=== PATIENT | female | born 1935 | race Caucasian/White ===

== ENCOUNTER 2022-03-21 08:43 | Outpatient (REF) | payer OTHER, SELFPAY ==
[2022-03-21 09:12] LABS: MANUAL DIFF FLAG NO
[2022-03-21 09:46] LABS: Basophils Percent Auto 0.4 % (0-2); Eosinophils Absolute Auto 0.2 X10*3/uL (0.0-0.4); Hematocrit 41.2 % (37.0-47.0); Hemoglobin 12.9 g/dl (12.0-16.0); Imm Gran Abs Auto 0.02 X10*3/uL (0.00-0.03); Imm Gran Pct Auto 0.3 % (0.0-0.4); Lymphocytes Absolute Auto 1.3 X10*3/uL (1.2-4.9); Lymphocytes Percent Auto 18.8 % (20-40); Mean Corpuscular HGB Conc 31.3 g/dl (31.0-35.0); Mean Corpuscular Hemoglobin 28.2 pg (27.0-33.0); Mean Corpuscular Volume 90.2 fL (80.0-98.0); Monocytes Absolute Auto 0.5 X10*3/uL (0.1-1.2); Monocytes Percent Auto 7.1 % (2-11); Neutrophils Absolute Auto 4.8 x10*3/uL (2.0-8.3); Neutrophils Percent Auto 70.4 % (45-73); Platelet Count 316 X10*3/uL (160-400); Red Blood Count 4.57 X10*6/uL (4.20-5.50); Red Cell Distribution Width 14.3 % (11.0-16.0); White Blood Count 6.8 X10*3/uL (4.8-10.8)
[2022-03-21 10:16] LABS: Alanine Aminotransferase 17 U/L (0-31); Albumin Level 4.1 g/dL (3.5-5.0); Alkaline Phosphatase 111 U/L (39-117); Anion Gap 13 (12-20); Aspartate Amino Transferase 28 U/L (5-31); Bilirubin Total 0.8 mg/dL (0.0-1.0); Blood Urea Nitrogen 17 mg/dL (9-16); Calcium 9.5 mg/dL (8.4-10.2); Carbon Dioxide 27 mmol/L (22-29); Chloride 106 mmol/L (96-108); Cholesterol 153 mg/dL; Estimated Glomerular Filt Rate 55; Glucose Fasting 103 mg/dL (60-99); HDL Cholesterol 40 mg/dL; LDL Cholesterol Calculated 91 mg/dl; Potassium 4.3 mmol/L (3.3-5.1); Sodium 142 mmol/L (135-145); Total Protein 6.6 g/dL (6.5-8.0); Triglycerides 112 mg/dL
[2022-03-21 10:38] LABS: TSH reflex Free T4 0.99 uIU/mL (0.32-4.0); Vitamin D 25-OH Total 5.5 ng/mL (>30)
[2022-03-21 10:58] LABS: Estimated Average Glucose 117 mg/dL; Hemoglobin A1c % 5.7 %
== END 2022-03-21 08:44 | disposition home or self-care (01) ==
LOC: HO.LAB 08:43
PROVIDERS: PCP Internal Medicine; Visit Provider Internal Medicine
DX: E78.00 Pure hypercholesterolemia, unspecified (principal); E55.9 Vitamin D deficiency, unspecified; R73.01 Impaired fasting glucose; I10 Essential (primary) hypertension
CPT/HCPCS: 36415; 80053; 80061; 82306; 83036; 84443; 85025

== ENCOUNTER 2023-11-27 14:16 | Outpatient (AMB) | payer OTHER, MEDICAID, SELFPAY ==
--- NOTE | 2023-11-27 14:17 | A.OFFPC_ITS ---
Vital Signs 11/27/23 14:18 Height 5 ft 1 in Weight 136 lb BMI 25.7 BP 128/86 Blood Pressure Location Lt brachial Position Sitting Pulse 60 Pulse Source Pulse Oximeter Pulse Oximetry (%) 97 Oxygen Delivery Method Room Air Intake Visit Reasons: hyperlipidemia vitamin d Gas Well Pumper Required: No Accompanied by: Self / Same As Patient Allergies nitrofurantoin [From MACROBID] Allergy (Unknown, Verified 11/27/23 15:15) RASH/FEVER penicillamine Allergy (Unknown, Verified 11/27/23 15:15) rash Penicillins [PENICILLINS] Allergy (Unknown, Verified 11/27/23 15:15) RASH Medication List - Last Reconciled 11/27/23 by Darci Mendenhall MD apixaban (Eliquis) 2.5 mg PO BID 90 days atorvastatin 20 mg PO DAILY cholecalciferol (vitamin D3) 50 mcg PO DAILY 90 days dicyclomine 20 mg (2 x 10 mg) PO QID fenofibrate nanocrystallized 145 mg PO DAILY 90 days hydrochlorothiazide 12.5 mg PO QAM 90 days lorazepam 1 mg PO DAILY PRN 30 days metoprolol succinate ER 50 mg PO DAILY 90 days Tobacco use date assessed: 11/27/23 Fall risk assessment: No Falls in past year Last assessed Fall Risk: 11/27/23 Dental Screening Dental Screen Date: 11/27/23 Did you have a dental visit in the last 12 months?: No Did you have a dental problem in the last 6 months where you did not have access to dental care?: No Was dental information given to patient?: No HPI hyperlipidemia vitamin d HPI Details Patient comes in for her follow up visit - she was last seen over a year ago in August 2022 States that she feels well She denies any headaches or dizziness Denies any chest pains, no SOB No nausea/vomiting, no abdominal pain No change in bowel habits noted - has not had any problems with her IBS lately Adds that she has not needed to take her Lorazepam in several months now and feels that her anxiety is well-controlled Needs several of her Rx refilled PFSH Medical History Vitamin D deficiency Impaired fasting glucose Overweight (BMI 25.0-29.9) Female bladder prolapse Hematuria Irritable bowel syndrome (IBS) Mixed hyperlipidemia Benign essential hypertension IBS (irritable bowel syndrome) Surgical History History of colonoscopy History of cholecystectomy History of bilateral cataract extraction Family History Father No problems noted. Mother No problems noted. Sister Cancer Social History Housing: Apartment Alcohol intake: never Patient Tobacco Use Status: Never used Tobacco Second Hand Smoke Exposure: No Current occupational status: retired Cognitive needs: No Hearing needs: No Vision needs: No Questionnaire PHQ-9 Over the last 2 weeks, how often have you been bothered by any of the following problems? 1. Little interest or pleasure in doing things: not at all 2. Feeling down, depressed, or hopeless: not at all 3. Trouble falling or staying asleep, or sleeping too much: not at all 4. Feeling tired or having little energy: not at all 5. Poor appetite or overeating: not at all 6. Feeling bad about yourself - or that you are a failure or have let yourself or your family down: not at all 7. Trouble concentrating on things, such as reading the newspaper or watching television: not at all 8. Moving or speaking so slowly that other people could have noticed. Or the opposite - being so fidgety or restless that you have been moving around a lot more than usual: not at all 9. Thoughts that you would be better off or of hurting yourself in some way: not at all Total score: 0 Depression Screening Interpretation: Negative Depression Screening Done: Yes 77452 - PHQ-9 Billing: Yes Source: Developed by Drs. Harinder Fernández, Erika Oden, Abdiel Jaramillo and colleagues, with an educational jaxson from [employer]. Thrive Questionnaire Date Thrive assessed: 11/27/23 I am a: Patient What is your living situation today?: I have a steady place to live Within the past 12 months, did the food you bought not last and you didn't have the money to get more?: Never true Within the past 12 months, did you worry whether your food would run out before you got money to buy more?: Never true Do you have trouble paying for medicines?: No Do you have trouble getting transportation to medical appointments?: No Do you have trouble paying your heating and electricity bill?: No Do you have trouble taking care of your child, family member or friend?: No Do you have trouble with day-to-day activities such as bathing, preparing meals, shopping, managing finances, etc.?: No Are you currently unemployed and looking for a job?: No Are you interested in more education?: No Please select the resources that you would like help with: None Currently or been in a relationship where the following occur: no concerns reported THRIVE Score: 0 AUDIT C Alcohol Use Questionnaire (AUDIT-C) 1. How often do you have a drink containing alcohol?: Never 3. How often do you have six or more drinks on one occasion?: Never Total Score: 0 Score Reviewed/Action Taken: Yes STEPHANIE-7 AMB Questionnaire STEPHANIE-7 Date STEPHANIE - 7 assessed: 11/27/23 Feeling nervous, anxious, or on edge: 1 = Several days Not being able to stop or control worryin = Several days Worrying too much about different things: 1 = Several days Trouble relaxin = Several days Being so restless that it is hard to sit still: 1 = Several days Becoming easily annoyed or irritable: 1 = Several days Feeling afraid as if something awful might happen: 1 = Several days Total STEPHANIE-7 score (0-4 normal; 5-9 mild; 10-14 moderate; 15-21 severe): 7 Source: Developed by Drs. Harinder Fernández, Erika Oden, Abdiel Jaramillo and colleagues, with an educational jaxson from [employer]. Review of Systems Const Denies chills, Denies fatigue, Denies fever(s) and Denies headache(s) ENT Denies dysphagia, Denies dizziness, Denies otalgia, Denies headache(s), Denies neck pain, Denies odynophagia and Denies sore throat Card Denies chest pain, Denies irregular heart rhythm, Denies palpitations and Denies dyspnea Resp Denies chest congestion, Denies cough and Denies dyspnea GI Denies abdominal pain, Denies constipation, Denies dysphagia, Denies heartburn, Denies diarrhea, Denies nausea, Denies odynophagia and Denies vomiting Denies difficulty voiding, Denies nocturia, Denies dysuria and Denies urinary urgency Musc Denies back pain and Denies neck pain Neuro Denies dizziness and Denies headache(s) Psych Denies anxiety Endo Denies fatigue and Denies palpitations Physical exam (Primary Care) Vital Signs: Last Vital Signs Pulse 60 11/27/23 14:18 BP 128/86 11/27/23 14:18 Pulse Ox 97 11/27/23 14:18 Oxygen Delivery Method Room Air 11/27/23 14:18 BMI result Body Mass Index 25.7 Tobacco/Smoking Status: Tobacco use Status Tobacco use date assessed 11/27/23 11/27/23 14:19 Patient Tobacco Use Status Never used Tobacco 11/27/23 14:19 PHQ-9: PHQ-9 Score PHQ-9: Total score 0 11/27/23 15:33 Depression Screening Interpretation: Negative Thrive Assessment: Date of Thrive Assessment Date Thrive assessed 11/27/23 11/27/23 14:19 Currently or been in a relationship where the following occur: no concerns reported Const General: no acute distress and alert HENMT Ears: TM's normal bilaterally and EAC's normal Throat: Yes posterior oropharynx normal and Yes tonsils normal (no TP congestion noted) Neck Neck: Yes no lymphadenopathy and Yes supple Resp Auscultation: clear to auscultation bilaterally, no rales and no wheezes Cardio Rate: regular rate Rhythm: regular rhythm Heart sounds: no murmurs GI Palpation (GI): Soft to palpation and nontender Auscultation: normal bowel sounds Skin Rashes: no rashes Extrem General: Yes no clubbing, cyanosis or edema Assessment and Plan Assessment & Plan (1) Benign essential hypertension: Code(s): I10 - Essential (primary) hypertension Plan: Reinforced low sodium diet - goal is systolic BP of at least 140 to 150 mm or less Continue Metoprolol ER 50 mg QD and HCTZ 12.5 mg QAM (2) Mixed hyperlipidemia: Code(s): E78.2 - Mixed hyperlipidemia Plan: Reinforced low cholesterol diet Continue Atorvastatin 20 mg QD and Fenofibrate 145 mg QD Patient again states that she lives alone and has no means of transportation except for her children but does not feel like bothering them and she often has to pay [id number] for transportation cost and would like to keep her labs down to a minimum as much as possible Will try rechecking her labs in 6 months but advised that if she has no means of transportation, then she should not force the issue (3) Paroxysmal atrial fibrillation: Code(s): I48.0 - Paroxysmal atrial fibrillation Plan: Patient currently remains in sinus rhythm Continue Apixaban 2.5 mg BID for thromboembolism prophylaxis Was referred to cardiology for further evaluation and management last year but she did not keep her appointment and prefers not to reschedule her appt - states that she feels well for her age and does not want any additional doctor's appointment for now (4) Irritable bowel syndrome (IBS): Code(s): K58.9 - Irritable bowel syndrome without diarrhea Qualifiers: Irritable bowel syndrome type: unspecified Qualified Code(s): K58.9 - Irritable bowel syndrome without diarrhea Plan: Controlled lately Continue Dicyclomine 10 mg 2 capsules 4 times a day as needed (5) Vitamin D deficiency: Code(s): E55.9 - Vitamin D deficiency, unspecified Plan: Continue Vitamin D3 2000 units QD (6) Impaired fasting glucose: Code(s): R73.01 - Impaired fasting glucose Plan: FBS was elevated on her labs done back in 2019; FBS was only slightly elevated on her recent labs and HgbA1c was normal at 5.7% Reinforced low calorie diet - admits that she drinks soda (Sprite) often and likes her sweets (candies) (7) Hematuria: Code(s): R31.9 - Hematuria, unspecified Qualifiers: Hematuria type: unspecified type Qualified Code(s): R31.9 - Hematuria, unspecified Plan: Urinalysis done back in June 2020 continues to show (+) significant RBCs and WBCs Was sent for a renal US for further evaluation and patient chose not to keep her appt. Advised to call if she sees any worsening/darkening of her urine color and appearance and if this progresses, will need to get this checked out further (8) Female bladder prolapse: Code(s): N81.10 - Cystocele, unspecified Plan: Was referred to urology previously but patient did not keep her appointment Advised to call for referral again if she changes her mind about seeing urology (9) Anxiety: Code(s): F41.9 - Anxiety disorder, unspecified Plan: Continue Lorazepam 1 mg 1/2 tablet every 6 hours as needed - takes this mostly at bedtime and only when needed (10) Overweight (BMI 25.0-29.9): Code(s): E66.3 - Overweight Plan: Reinforced diet/exercise as tolerated/lose weight Plan Follow up in 6 months Orders: Orders Comprehensive [place]. Panel Fast 6 Months E78.00 - Pure hypercholesterolemia, unspecified TSH reflex Free T4 6 Months E78.00 - Pure hypercholesterolemia, unspecified Complete Blood Count Auto Diff 6 Months D64.9 - Anemia, unspecified Lipid Panel 6 Months E78.00 - Pure hypercholesterolemia, unspecified UA CC w/rflx Micro + Cult 6 Months R30.0 - Dysuria Vitamin D 25-OH Total 6 Months E55.9 - Vitamin D deficiency, unspecified Medications: Refilled cholecalciferol (vitamin D3) 50 mcg PO DAILY 90 days 90 caps 3RF E55.9 - Vitamin D deficiency, unspecified apixaban (Eliquis) 2.5 mg PO BID 90 days 180 caps 0RF I48.0 - Paroxysmal atrial fibrillation fenofibrate nanocrystallized 145 mg PO DAILY 90 days 90 caps 1RF E78.2 - Mixed hyperlipidemia hydrochlorothiazide 12.5 mg PO QAM 90 days 90 caps 1RF I10 - Essential (primary) hypertension dicyclomine 20 mg (2 x 10 mg) PO QID 720 caps 3RF atorvastatin 20 mg PO DAILY 90 tabs 3RF E78.2 - Mixed hyperlipidemia metoprolol succinate ER 50 mg PO DAILY 90 days 90 caps 1RF I10 - Essential (primary) hypertension, I48.0 - Paroxysmal atrial fibrillation Coding Level of Care Code Est Pt Level 4 (98991) Diagnoses Benign essential hypertension I10 Mixed hyperlipidemia E78.2 Paroxysmal atrial fibrillation I48.0 Irritable bowel syndrome, unspecified type K58.9 Irritable bowel syndrome type: unspecified Vitamin D deficiency E55.9 Impaired fasting glucose R73.01 Hematuria, unspecified type R31.9 Hematuria type: unspecified type Female bladder prolapse N81.10 Anxiety F41.9 Overweight (BMI 25.0-29.9) E66.3
[2023-11-27 14:18] VITALS: BP 128/86; PULSE 60; O2SAT 97; BMI 25.7
== END 2023-11-27 15:52 | disposition home or self-care (01) ==
PROVIDERS: PCP Internal Medicine; Visit Provider Internal Medicine
DX: I10 Essential (primary) hypertension (principal); E78.2 Mixed hyperlipidemia; I48.0 Paroxysmal atrial fibrillation; K58.9 Irritable bowel syndrome, unspecified; E55.9 Vitamin D deficiency, unspecified; R73.01 Impaired fasting glucose; R31.9 Hematuria, unspecified; N81.10 Cystocele, unspecified; F41.9 Anxiety disorder, unspecified; E66.3 Overweight
CPT/HCPCS: 99214

== ENCOUNTER 2024-08-02 09:44 | Outpatient (REF) | payer MEDICARE, MEDICAID, SELFPAY ==
--- NOTE | ~2024-08-02 | XR_ITS ---
EXAMINATION: XR HIP, LEFT CLINICAL INFORMATION: Pain COMPARISON: None available. TECHNIQUE: Two views of the left hip. FINDINGS: No evidence of acute or dislocation. Alignment is anatomic. Lateral acetabular cyst. Hip joint space is maintained. Soft tissues are unremarkable. Symphysis pubis degeneration. XR/XR hip LT min 2V IMPRESSION: Mild left hip arthritis. No radiographic evidence of acute fracture. Electronically signed by: Jeff Roberts MD 08/02/2024 02:09 PM EDT
--- NOTE | ~2024-08-02 | XR_ITS ---
EXAMINATION: XR KNEE, LEFT CLINICAL INFORMATION: Knee pain. COMPARISON: None available. TECHNIQUE: Four views of the left knee. FINDINGS: Severe patellofemoral arthritis, marked joint space loss, osteophytes, sclerosis. Mild left and moderate medial and lateral compartment arthritis. Calcifications in the medial and lateral joint could reflect chondrocalcinosis or loose bodies. Calcifications in the posterior soft tissues could reflect loose bodies. No visible acute fracture or dislocation. No significant effusion. 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 No radiographic evidence of acute fracture. Electronically signed by: Jeff Roberts MD 08/02/2024 02:43 PM EDT
== END 2024-08-02 09:45 | disposition home or self-care (01) ==
LOC: HO.XRAY 09:44
PROVIDERS: PCP Internal Medicine; Visit Provider Internal Medicine
DX: M25.562 Pain in left knee (principal); M25.552 Pain in left hip
CPT/HCPCS: 73502; 73564; 90471; 96127; 99212

== ENCOUNTER 2024-08-02 09:44 | Outpatient (AMB) | payer MEDICARE, MEDICAID, SELFPAY ==
[2024-08-02 09:45] VITALS: BP 146/90; PULSE 118; O2SAT 99; BMI 23.3
--- NOTE | 2024-08-02 09:45 | MHC.PC.OV ---
Vital Signs 08/02/24 09:45 Height 5 ft 1 in Weight 123 lb 8 oz BMI 23.3 BP 146/90 H Blood Pressure Location Lt brachial Position Sitting Pulse 118 H Pulse Source Pulse Oximeter Pulse Oximetry (%) 99 Oxygen Delivery Method Room Air Intake Visit Reasons: left side pain Adobe Ball Mixer Required: No Accompanied by: Self / Same As Patient Allergies nitrofurantoin [From MACROBID] Allergy (Unknown, Verified 08/02/24 10:27) RASH/FEVER penicillamine Allergy (Unknown, Verified 08/02/24 10:27) rash Penicillins [PENICILLINS] Allergy (Unknown, Verified 08/02/24 10:27) RASH Medication List - Last Reconciled 08/02/24 by Darci Mendenhall MD apixaban (Eliquis) 2.5 mg PO BID 90 days atorvastatin 20 mg PO DAILY cholecalciferol (vitamin D3) 50 mcg PO DAILY 90 days dicyclomine 20 mg (2 x 10 mg) PO QID fenofibrate nanocrystallized 145 mg PO DAILY 90 days hydrochlorothiazide 12.5 mg PO QAM 90 days lorazepam 1 mg PO DAILY PRN 30 days metoprolol succinate ER 50 mg PO DAILY 90 days tramadol 50 mg PO TID PRN Tobacco use date assessed: 08/02/24 Fall risk assessment: No Falls in past year Last assessed Fall Risk: 08/02/24 Dental Screening Dental Screen Date: 08/02/24 Did you have a dental visit in the last 12 months?: No Did you have a dental problem in the last 6 months where you did not have access to dental care?: No Was dental information given to patient?: No HPI left side pain HPI Details Patient comes in today complaining of increased/severe pain in her left hip area States that her left hip pain has been going on for about a week now and relates that the pain goes down her left leg to just below her knee She denies any recent falls, injury or trauma, especially to her left hip area States that the pain is so bad that she can hardly sleep at night and cannot get comfortable even sitting down - notes that the pain is present all the time but feels worse when she is up on her feet and when walking She reportedly took 4 tablets of Tylenol and 4 tablets of Advil all at the same time recently and even that did not give her much relief Would like something stronger to help with her pain until we can find out what to do about her hip Denies any swelling on her left leg but relates that her left leg and feet feels cold to touch She denies any fever or chills lately Denies any chest pains, no SOB No nausea/vomiting, no abdominal pain No change in bowel habits noted [facility], [facility] Medical History Vitamin D deficiency Impaired fasting glucose Overweight (BMI 25.0-29.9) Female bladder prolapse Hematuria Irritable bowel syndrome (IBS) Mixed hyperlipidemia Benign essential hypertension IBS (irritable bowel syndrome) Surgical History History of colonoscopy History of cholecystectomy History of bilateral cataract extraction Family History Father No problems noted. Mother No problems noted. Sister Cancer Social History Housing: Apartment Alcohol intake: never Patient Tobacco Use Status: Never used Tobacco e-Cigarette/Vaping Use: Never Used Second Hand Smoke Exposure: No Current occupational status: retired Cognitive needs: No Hearing needs: No Vision needs: No Questionnaire PHQ-9 Over the last 2 weeks, how often have you been bothered by any of the following problems? 1. Little interest or pleasure in doing things: not at all 2. Feeling down, depressed, or hopeless: not at all 3. Trouble falling or staying asleep, or sleeping too much: not at all 4. Feeling tired or having little energy: not at all 5. Poor appetite or overeating: not at all 6. Feeling bad about yourself - or that you are a failure or have let yourself or your family down: not at all 7. Trouble concentrating on things, such as reading the newspaper or watching television: not at all 8. Moving or speaking so slowly that other people could have noticed. Or the opposite - being so fidgety or restless that you have been moving around a lot more than usual: not at all 9. Thoughts that you would be better off or of hurting yourself in some way: not at all Total score: 0 Depression Screening Interpretation: Negative Depression Screening Done: Yes 38825 - PHQ-9 Billing: Yes Source: Developed by Drs. Harinder Fernández, Abdiel Michelle and colleagues, with an educational jaxson from [employer]. Thrive Questionnaire Date Thrive assessed: 08/02/24 I am a: Patient What is your living situation today?: I have a steady place to live Within the past 12 months, did the food you bought not last and you didn't have the money to get more?: Never true Within the past 12 months, did you worry whether your food would run out before you got money to buy more?: Never true Do you have trouble paying for medicines?: No Do you have trouble getting transportation to medical appointments?: No Do you have trouble paying your heating and electricity bill?: No Do you have trouble taking care of your child, family member or friend?: No Do you have trouble with day-to-day activities such as bathing, preparing meals, shopping, managing finances, etc.?: No Are you currently unemployed and looking for a job?: No Are you interested in more education?: No Please select the resources that you would like help with: None Currently or been in a relationship where the following occur: No concerns reported THRIVE Score: 0 AUDIT C Alcohol Use Questionnaire (AUDIT-C) 1. How often do you have a drink containing alcohol?: Never 3. How often do you have six or more drinks on one occasion?: Never Total Score: 0 Score Reviewed/Action Taken: Yes STEPHANIE-7 AMB Questionnaire STEPHANIE-7 Date STEPHANIE - 7 assessed: 08/02/24 Feeling nervous, anxious, or on edge: 1 = Several days Not being able to stop or control worryin = Several days Worrying too much about different things: 1 = Several days Trouble relaxin = Several days Being so restless that it is hard to sit still: 1 = Several days Becoming easily annoyed or irritable: 1 = Several days Feeling afraid as if something awful might happen: 1 = Several days Total STEPHANIE-7 score (0-4 normal; 5-9 mild; 10-14 moderate; 15-21 severe): 7 Source: Developed by Erika Killian Kurt Kroenke and colleagues, with an educational jaxson from [employer]. Review of Systems Const Denies chills, Denies fatigue, Denies fever(s) and Denies headache(s) ENT Denies dysphagia, Denies dizziness, Denies headache(s), Denies neck pain, Denies odynophagia and Denies sore throat Card Denies chest pain, Denies irregular heart rhythm, Denies palpitations and Denies dyspnea Resp Denies chest congestion, Denies cough and Denies dyspnea GI Denies abdominal pain, Denies constipation, Denies dysphagia, Denies heartburn, Denies diarrhea, Denies nausea, Denies odynophagia and Denies vomiting Denies difficulty voiding, Denies nocturia, Denies dysuria and Denies urinary urgency Musc Denies back pain, Reports arthralgias (increased over the left hip area - see HPI), Denies neck pain and Reports radiating pain into limb (into the left leg - see HPI) Neuro Denies dizziness and Denies headache(s) Psych Denies anxiety Endo Denies fatigue and Denies palpitations Physical exam (Primary Care) Vital Signs: Last Vital Signs Pulse 118 H 08/02/24 09:45 BP 146/90 H 08/02/24 09:45 Pulse Ox 99 08/02/24 09:45 Oxygen Delivery Method Room Air 08/02/24 09:45 BMI result Body Mass Index 23.3 Tobacco/Smoking Status: Tobacco use Status Tobacco use date assessed 08/02/24 08/02/24 09:47 Patient Tobacco Use Status Never used Tobacco 08/02/24 09:47 e-Cigarette/Vaping Use Never Used 08/02/24 09:52 PHQ-9: PHQ-9 Score PHQ-9: Total score 0 08/02/24 09:54 Depression Screening Interpretation: Negative Thrive Assessment: Date of Thrive Assessment Date Thrive assessed 08/02/24 08/02/24 09:47 Currently or been in a relationship where the following occur: No concerns reported Const General: no acute distress and alert Neck Neck: Yes no lymphadenopathy and Yes supple Resp Auscultation: clear to auscultation bilaterally, no rales and no wheezes Cardio Rate: regular rate Rhythm: regular rhythm Heart sounds: no murmurs GI Palpation (GI): Soft to palpation and nontender Auscultation: normal bowel sounds Extrem Other: (+) pedal pulses bilaterally General: Yes no clubbing, cyanosis or edema Left lower extremity: hip/thigh Details: tenderness Location: of the hip and of the proximal upper leg; no swelling, knee Details: tenderness (mild - diffuse tenderness); no swelling and lower leg (slightly tender on palpation over the calf muscles) Office Procedures Flu Questionnaire Does the patient have a severe egg allergy?: No Immunizations Fluarix Triv [id number] (PF) 45 mcg (15 mcg x 3)/0.5 mL IM syringe Performing Provider: Darci Mendenhall MD [facility] Documented (not given) by: JENNIFER Nicolas on 08/02/24 09:54 Reason Not Given: Received Previously Coding Level of Care Code Est Pt Level 3 (89047) Diagnoses Left hip pain M25.552 Pain of left lower extremity M79.605 Assessment & Plan Assessment & Plan (1) Left hip pain: Code(s): M25.552 - Pain in left hip Category: Medical Plan: Will send patient for x-rays of the left hip [place] for further evaluation Will start her for now on Tramadol 50 mg TID PRN for pain - patient is cautioned about potential sedation / drowsiness as side effect of this Rx Have also advised her not to take any more Tylenol or Ibuprofen as they do not seem to have helped even when she took 4 tablets of each recently Have advised her that we will reach out to her with further instructions as soon as her x-ray results are available for review (2) Pain of left lower extremity: Code(s): M79.605 - Pain in left leg Category: Medical Plan: Will send her for x-rays of the left knee as well for further evaluation Plan To return as scheduled next week for her annual physical examination Orders: Orders Influenza [id number] Immunization Today Z23 - Encounter for immunization XR knee LT 4V Today M25.562 - Pain in left knee XR hip LT min 2V Today M25.552 - Pain in left hip Medications: New tramadol 50 mg PO TID PRN 15 tabs 0RF pain
== END 2024-08-02 10:58 | disposition home or self-care (01) ==
PROVIDERS: PCP Internal Medicine; Visit Provider Internal Medicine
DX: M25.552 Pain in left hip (principal); M79.605 Pain in left leg; Z23 Encounter for immunization

== ENCOUNTER 2024-08-07 12:45 | Outpatient (REF) | payer MEDICARE, MEDICAID, SELFPAY ==
[2024-08-07 14:24] LABS: MANUAL DIFF FLAG NO
[2024-08-07 15:03] LABS: Basophils Percent Auto 0.3 % (0-2); Hematocrit 40.9 % (37.0-47.0); Hemoglobin 13.9 g/dl (12.0-16.0); Imm Gran Abs Auto 0.07 X10*3/uL (0.00-0.03); Imm Gran Pct Auto 0.6 % (0.0-0.4); Lymphocytes Absolute Auto 1.4 X10*3/uL (1.2-4.9); Lymphocytes Percent Auto 12.6 % (20-40); Mean Corpuscular Hemoglobin 30.4 pg (27.0-33.0); Mean Corpuscular Volume 89.5 fL (80.0-98.0); Mean Platelet Volume 10.7 fL (9.4-12.3); Monocytes Absolute Auto 0.7 X10*3/uL (0.1-1.2); Monocytes Percent Auto 6.3 % (2-11); Neutrophils Percent Auto 80.2 % (45-73); Platelet Count 440 X10*3/uL (160-400); Red Blood Count 4.57 X10*6/uL (4.20-5.50); Red Cell Distribution Width 14.2 % (11.0-16.0); White Blood Count 11.2 X10*3/uL (4.8-10.8)
[2024-08-07 15:55] LABS: Alanine Aminotransferase 15 U/L (0-31); Albumin Level 4.3 g/dL (3.5-5.0); Alkaline Phosphatase 145 U/L (39-117); Anion Gap 16 (12-20); Aspartate Amino Transferase 40 U/L (5-31); Blood Urea Nitrogen 53 mg/dL (9-16); Calcium 11.4 mg/dL (8.4-10.2); Carbon Dioxide 29 mmol/L (22-29); Chloride 100 mmol/L (96-108); Cholesterol 137 mg/dL (<200); Estimated Glomerular Filt Rate 27; Glucose Fasting 169 mg/dL (60-99); Glucose Random 169 mg/dL (60-115); HDL Cholesterol 46 mg/dL (>40); LDL Cholesterol Calculated 62 mg/dL (<100); Potassium 2.8 mmol/L (3.3-5.1); Sodium 142 mmol/L (135-145); Total Protein 7.4 g/dL (6.5-8.0); Triglycerides 148 mg/dL (<150); Uric Acid 13.8 mg/dL (2.4-5.7)
[2024-08-07 15:57] LABS: TSH reflex Free T4 0.75 uIU/mL (0.32-4.0); Vitamin D 25-OH Total 65.4 ng/mL (>30)
[2024-08-07 15:58] LABS: Erythrocyte Sedimentation Rate 23 MM/HR (0-20)
[2024-08-07 16:11] LABS: Folate 9.8 ng/mL (> or = 4.0); Vitamin B12 279 pg/mL (200-900)
[2024-08-08 08:33] LABS: Syphilis Screen Nonreactive (Nonreactive)
[2024-08-09 03:13] LABS: Lyme Abs Screen <0.90 index
== END 2024-08-07 12:46 | disposition home or self-care (01) ==
LOC: HO.LAB 12:45
PROVIDERS: PCP Internal Medicine; Visit Provider Internal Medicine
DX: Z00.00 Encounter for general adult medical examination without abnormal findings (principal); R41.89 Other symptoms and signs involving cognitive functions and awareness; M16.12 Unilateral primary osteoarthritis, left hip; M17.12 Unilateral primary osteoarthritis, left knee; I10 Essential (primary) hypertension; I48.0 Paroxysmal atrial fibrillation; E78.2 Mixed hyperlipidemia; K58.9 Irritable bowel syndrome, unspecified; R73.01 Impaired fasting glucose; E55.9 Vitamin D deficiency, unspecified; R31.9 Hematuria, unspecified; N81.10 Cystocele, unspecified; F41.9 Anxiety disorder, unspecified; D64.9 Anemia, unspecified; M10.9 Gout, unspecified; E78.00 Pure hypercholesterolemia, unspecified; E53.8 Deficiency of other specified B group vitamins; Z79.01 Long term (current) use of anticoagulants; Z79.899 Other long term (current) drug therapy; Z20.2 Contact with and (suspected) exposure to infections with a predominantly sexual mode of transmission
CPT/HCPCS: 36415; 80053; 80061; 82306; 82607; 82746; 84443; 84550; 85025; 85652; 86617; 86618; 86780; 96127; 99397

== ENCOUNTER 2024-08-07 12:45 | Outpatient (AMB) | payer MEDICARE, MEDICAID, SELFPAY ==
--- NOTE | 2024-08-07 12:48 | MHC.PC.OV ---
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 Required: No Accompanied by: Self / Same As Patient Allergies nitrofurantoin [From MACROBID] Allergy (Unknown, Verified 08/07/24 13:37) RASH/FEVER penicillamine Allergy (Unknown, Verified 08/07/24 13:37) rash Penicillins [PENICILLINS] Allergy (Unknown, Verified 08/07/24 13:37) RASH Medication List - Last Reconciled 08/07/24 by Darci Mendenhall MD apixaban (Eliquis) 2.5 mg PO BID 90 days atorvastatin 20 mg PO DAILY cholecalciferol (vitamin D3) 50 mcg PO DAILY 90 days dicyclomine 20 mg (2 x 10 mg) PO QID fenofibrate nanocrystallized 145 mg PO DAILY 90 days hydrochlorothiazide 12.5 mg PO QAM 90 days lorazepam 1 mg PO DAILY PRN 30 days metoprolol succinate ER 50 mg PO DAILY 90 days tramadol 50 mg PO TID PRN Tobacco use date assessed: 08/07/24 Fall risk assessment: No Falls in past year Last assessed Fall Risk: 08/07/24 Dental Screening Dental Screen Date: 08/07/24 Did you have a dental visit in the last 12 months?: No Did you have a dental problem in the last 6 months where you did not have access to dental care?: No Was dental information given to patient?: No HPI annual exam HPI Details Patient comes in today for her annual physical examination She continues to complain of increased pain in her left hip and left leg/knee She is accompanied by her daughter today, who feels that her mother is confused and seems to be more so than usual and is wondering if she may also have a UTI at this time, which is making her more confused States that she has tried taking her meds on her own and her daughter has had to stop her from doing so and reminded her that she just took them not too long ago and it is not time for her to take them again yet She has OA changes seen on x-rays of the left hip and left knee done last week and has been referred to orthopedics but they are still waiting for orthopedics to call them for an appointment She is wondering if her mother would qualify for any VNA services, particularly with her meds, as she lives alone and her daughter feels that she is not able to handle and manage her meds safely on her own anymore Patient denies any headaches or dizziness She denies any chest pains, no increased SOB No nausea/vomiting, no abdominal pain No change in bowel habits noted Patient denies any pain or burning sensation on urination but states that she goes a lot At patient's current age, she no longer has to keep up with her cancer screenings, including her mammogram and colonoscopy [facility] Medical History Vitamin D deficiency Impaired fasting glucose Overweight (BMI 25.0-29.9) Female bladder prolapse Hematuria Irritable bowel syndrome (IBS) Mixed hyperlipidemia Benign essential hypertension IBS (irritable bowel syndrome) Surgical History History of colonoscopy History of cholecystectomy History of bilateral cataract extraction Family History Father No problems noted. Mother No problems noted. Sister Cancer Social History Housing: Apartment Alcohol intake: never Patient Tobacco Use Status: Never used Tobacco e-Cigarette/Vaping Use: Never Used Second Hand Smoke Exposure: No Current occupational status: retired Cognitive needs: No Hearing needs: No Vision needs: No Questionnaire PHQ-9 Over the last 2 weeks, how often have you been bothered by any of the following problems? 1. Little interest or pleasure in doing things: not at all 2. Feeling down, depressed, or hopeless: not at all 3. Trouble falling or staying asleep, or sleeping too much: not at all 4. Feeling tired or having little energy: not at all 5. Poor appetite or overeating: not at all 6. Feeling bad about yourself - or that you are a failure or have let yourself or your family down: not at all 7. Trouble concentrating on things, such as reading the newspaper or watching television: not at all 8. Moving or speaking so slowly that other people could have noticed. Or the opposite - being so fidgety or restless that you have been moving around a lot more than usual: not at all 9. Thoughts that you would be better off or of hurting yourself in some way: not at all Total score: 0 Depression Screening Interpretation: Negative Depression Screening Done: Yes 48988 - PHQ-9 Billing: Yes Source: Developed by Drs. Harinder Fernández, Erika Oden, Abdiel Jaramillo and colleagues, with an educational jaxson from [employer]. Thrive Questionnaire Date Thrive assessed: 08/07/24 I am a: Patient What is your living situation today?: I have a steady place to live Within the past 12 months, did the food you bought not last and you didn't have the money to get more?: Never true Within the past 12 months, did you worry whether your food would run out before you got money to buy more?: Never true Do you have trouble paying for medicines?: No Do you have trouble getting transportation to medical appointments?: No Do you have trouble paying your heating and electricity bill?: No Do you have trouble taking care of your child, family member or friend?: No Do you have trouble with day-to-day activities such as bathing, preparing meals, shopping, managing finances, etc.?: No Are you currently unemployed and looking for a job?: No Are you interested in more education?: No Please select the resources that you would like help with: None Currently or been in a relationship where the following occur: No concerns reported THRIVE Score: 0 AUDIT C Alcohol Use Questionnaire (AUDIT-C) 1. How often do you have a drink containing alcohol?: Never 3. How often do you have six or more drinks on one occasion?: Never Total Score: 0 Score Reviewed/Action Taken: Yes STEPHANIE-7 AMB Questionnaire STEPHANIE-7 Date STEPHANIE - 7 assessed: 08/07/24 Feeling nervous, anxious, or on edge: 1 = Several days Not being able to stop or control worryin = Several days Worrying too much about different things: 1 = Several days Trouble relaxin = Several days Being so restless that it is hard to sit still: 1 = Several days Becoming easily annoyed or irritable: 1 = Several days Feeling afraid as if something awful might happen: 1 = Several days Total STEPHANIE-7 score (0-4 normal; 5-9 mild; 10-14 moderate; 15-21 severe): 7 Source: Developed by Drs. Harinder Fernández, Erika Oden, Abidel Jaramillo and colleagues, with an educational jaxson from [employer]. Review of Systems Const Denies chills, Reports difficulty sleeping (recently, due to pain), Reports fatigue, Denies fever(s), Denies headache(s) and Denies malaise Eyes Denies blurry vision, Denies change in vision, Denies irritation and Denies itchy eyes ENT Denies dysphagia, Denies dizziness, Denies otalgia, Denies headache(s), Denies nasal congestion, Denies neck pain, Denies odynophagia, Denies sinus pain and Denies sore throat Card Denies chest pain, Denies rapid heart rate, Denies irregular heart rhythm, Denies palpitations and Denies dyspnea Resp Denies chest congestion, Denies cough, Denies dyspnea and Denies wheezing GI Denies abdominal pain, Denies bloating, Denies constipation, Denies dysphagia, Denies heartburn, Denies diarrhea, Denies nausea, Denies odynophagia and Denies vomiting Denies hematuria, Denies urinary frequency, Denies dysuria, Denies urinary incontinence and Denies urinary urgency Musc Denies back pain, Reports arthralgias (in the left hip and left knee/lower leg), Denies joint swelling, Denies muscle weakness and Denies neck pain Skin/Breast Denies breast pain, Denies breast mass, Denies change in pigmentation, Denies lesions, Denies rash and Denies unusual bruising Neuro Reports behavioral changes (per daughter), Reports confusion (per patient's daughter), Denies dizziness, Denies headache(s), Reports memory loss and Denies paresthesias Psych Denies anxiety, Reports behavioral changes (per daughter), Reports confusion (per patient's daughter), Denies depression and Reports memory loss Endo Reports fatigue and Denies palpitations Ganga/Lymph Denies easy bruising Aller/Immun Denies itchy eyes and Denies wheezing Physical exam (Primary Care) Vital Signs: Last Vital Signs Pulse 99 08/07/24 12:49 BP 160/90 H 08/07/24 12:49 Pulse Ox 96 08/07/24 12:49 Oxygen Delivery Method Room Air 08/07/24 12:49 BMI result Body Mass Index 22.3 Tobacco/Smoking Status: Tobacco use Status Tobacco use date assessed 08/07/24 08/07/24 12:56 Patient Tobacco Use Status Never used Tobacco 08/07/24 12:48 e-Cigarette/Vaping Use Never Used 08/07/24 12:48 PHQ-9: PHQ-9 Score PHQ-9: Total score 0 08/07/24 13:37 Depression Screening Interpretation: Negative Thrive Assessment: Date of Thrive Assessment Date Thrive assessed 08/07/24 08/07/24 12:56 Currently or been in a relationship where the following occur: No concerns reported Const General: confusion (per patient's daughter) Orientation/consciousness: confusion (per patient's daughter) HENMT Head: Yes normocephalic and Yes atraumatic Ears: external ears normal, TM's normal bilaterally and EAC's normal General nose exam: No nasal discharge present Face and sinus: Yes normal facial exam and Yes sinuses nontender Teeth and gingiva: dentition normal Throat: Yes posterior oropharynx normal and Yes tonsils normal (no TP congestion) Eyes Eyelids: Yes eyelids normal Conjunctivae: conjunctivae normal Pupils: Equal, round and reactive pupils present EOM: EOMs intact bilaterally Neck Neck: Yes no lymphadenopathy and Yes supple Thyroid: Thyroid normal Resp Auscultation: clear to auscultation bilaterally, no rales and no wheezes Cardio Rate: regular rate Rhythm: regular rhythm Heart sounds: no murmurs GI Palpation (GI): Soft to palpation, nontender and No hepatosplenomegaly present Auscultation: normal bowel sounds General: Yes no CVA tenderness Back/Spine/Pelvis Back: no CVA tenderness Thoracic/Lumbar Spine: thoracic and lumbar spine normal to inspection Skin Lesions: no lesions Rashes: no rashes Neuro General: confusion (per patient's daughter) Cranial nerves: Yes Equal, round and reactive pupils present Cognition (Neuro): normal cognition Gait exam (Neuro): Normal gait present Extrem Other: (+) pedal pulses bilaterally General: Yes no clubbing, cyanosis or edema Left lower extremity: hip/thigh Details: tenderness Location: of the hip and of the proximal upper leg; no swelling, knee Details: tenderness (mild - diffuse tenderness); no swelling and lower leg (slightly tender on palpation over the calf muscles) Coding Level of Care Code Est Pt Prev Care >65y(98238) Diagnoses Annual physical exam Z00.00 Cognitive decline R41.89 Primary osteoarthritis of left hip M16.12 Primary osteoarthritis of left knee M17.12 Benign essential hypertension I10 Paroxysmal atrial fibrillation I48.0 Mixed hyperlipidemia E78.2 Irritable bowel syndrome, unspecified type K58.9 Irritable bowel syndrome type: unspecified Impaired fasting glucose R73.01 Vitamin D deficiency E55.9 Hematuria, unspecified type R31.9 Hematuria type: unspecified type Female bladder prolapse N81.10 Anxiety F41.9 Assessment & Plan Assessment & Plan (1) Annual physical exam: Code(s): Z00.00 - Encounter for general adult medical examination without abnormal findings Category: Medical Plan: Check labs At patient's current age, she no longer has to keep up with any of her cancer screenings (2) Cognitive decline: Code(s): R41.89 - Other symptoms and signs involving cognitive functions and awareness Category: Medical Plan: Patient is noticed throughout her exam today to have on and off bouts of confusion and agitation and she has a tendency to keep repeating the same things over and over every 5 to 10 minutes She also has occasional flight of ideas and bouts of tangential thinking Her daughter reports that she's had on and off episodes of agitation and confusion over the past few weeks and feels that these have been occurring more often lately and are getting worse Will have her get a U/A done to make sure she does not have a UTI at present that may be making her symptoms worse Will also send her for some labs [facility] as it has been a couple of years now since she's had some labs done Will refer her to neurology for further evaluation and management Per request, will also refer her to VNA to see if she qualifies for any retirement services at home, considering her current issues (3) Primary osteoarthritis of left hip: Code(s): M16.12 - Unilateral primary osteoarthritis, left hip Category: Medical Plan: X-rays of the left hip done last week revealed (+) mild left hip arthritis Have discussed with patient's daughter that her currently perceived hip pain seems somewhat out of proportion to her actual findings so patient's complaint(s) may be likely affected in part by her recent cognitive decline and her pain may not really be as bad as it actually is so she should be aware of how much Tramadol the patient is taking, which can also make her more confused if taken more than prescribed She has been referred to orthopedics last week for her hip and knee issues and hopefully, they will be reaching out to patient soon to schedule an appointment Alternatively, have advised patient's daughter that she can try to contact orthopedics to see if she can get patient in to be seen earlier if there is a cancellation (4) Primary osteoarthritis of left knee: Code(s): M17.12 - Unilateral primary osteoarthritis, left knee Category: Medical Plan: Her left knee x-rays done last week also showed (+) tricompartment osteoarthritis and severe patellofemoral arthritis, with chondrocalcinosis/loose bodies seen She has been referred to orthopedics already and we are just waiting on them to call patient for an appointment (5) Benign essential hypertension: Code(s): I10 - Essential (primary) hypertension Category: Medical Plan: Reinforced low sodium diet - goal is systolic BP of at least 140 to 150 mm or less Continue Metoprolol ER 50 mg QD and HCTZ 12.5 mg QAM (6) Paroxysmal atrial fibrillation: Code(s): I48.0 - Paroxysmal atrial fibrillation Category: Medical Plan: Patient currently remains in sinus rhythm Continue Apixaban 2.5 mg BID for thromboembolism prophylaxis She was referred to cardiology for further evaluation and management last year but she did not keep her appointment and prefers not to reschedule her appt - states that she feels well for her age and does not want any additional doctor's appointment for now (7) Mixed hyperlipidemia: Code(s): E78.2 - Mixed hyperlipidemia Category: Medical Plan: Reinforced low cholesterol diet Continue Atorvastatin 20 mg QD and Fenofibrate 145 mg QD Patient has stated previously that she lives alone and has no means of transportation except for her children but does not feel like bothering them and she often has to pay [id number] for transportation cost and would like to keep her labs down to a minimum as much as possible so we have not really had a chance to get her to do follow up labs since 2021 As her daughter is here with her today and has indicated that she can bring patient over to the lab and get them done now, will send her for follow up labs today and will include all pertinent labs needed (8) Irritable bowel syndrome (IBS): Code(s): K58.9 - Irritable bowel syndrome, unspecified Category: Medical Qualifiers: Irritable bowel syndrome type: unspecified Qualified Code(s): K58.9 - Irritable bowel syndrome without diarrhea Plan: Controlled Continue Dicyclomine 10 mg 2 capsules 4 times a day as needed (9) Impaired fasting glucose: Code(s): R73.01 - Impaired fasting glucose Category: Medical Plan: Her FBS was elevated on her labs done back in 2019; FBS was only slightly elevated on her recent labs and HgbA1c was normal at 5.7% Reinforced low calorie diet - she has admitted that she drinks soda (Sprite) often and likes her sweets (candies) (10) Vitamin D deficiency: Code(s): E55.9 - Vitamin D deficiency, unspecified Category: Medical Plan: Continue Vitamin D3 2000 units QD (11) Hematuria: Code(s): R31.9 - Hematuria, unspecified Category: Medical Qualifiers: Hematuria type: unspecified type Qualified Code(s): R31.9 - Hematuria, unspecified Plan: Urinalysis done back in June 2020 continued to present with (+) significant RBCs and WBCs She was sent back then for a renal US for further evaluation and patient chose not to keep her appt. Will recheck her U/A today and if it still has significant hematuria and pyuria, will need to revisit renal US for further evaluation (12) Female bladder prolapse: Code(s): N81.10 - Cystocele, unspecified Category: Medical Plan: She was referred to urology previously for further evaluation but patient did not keep her appointment May need to refer again to urology if her symptoms are worse and her labs/tests are unrevealing (13) Anxiety: Code(s): F41.9 - Anxiety disorder, unspecified Category: Medical Plan: Continue Lorazepam 1 mg 1/2 tablet every 6 hours as needed - she takes this mostly at bedtime and only when needed Plan Follow up as scheduled in January 2025 Orders: Orders Complete Blood Count Auto Diff Today D64.9 - Anemia, unspecified, I10 - Essential (primary) hypertension Comprehensive Met. Panel Today I10 - Essential (primary) hypertension Cholesterol Today I10 - Essential (primary) hypertension, Z00.00 - Encounter for general adult medical examination without abnormal findings Syphilis Screen Today R41.89 - Other symptoms and signs involving cognitive functions and awareness, Z20.2 - Contact with and (suspected) exposure to infections with a predominantly sexual mode of transmission Uric Acid Today M10.9 - Gout, unspecified Erythrocyte Sedimentation Rate Today M16.12 - Unilateral primary osteoarthritis, left hip, M17.12 - Unilateral primary osteoarthritis, left knee TSH reflex Free T4 Today E78.00 - Pure hypercholesterolemia, unspecified, I10 - Essential (primary) hypertension Vitamin B12 and Folate Today E53.8 - Deficiency of other specified B group vitamins, I10 - Essential (primary) hypertension Vitamin D 25-OH Total Today E55.9 - Vitamin D deficiency, unspecified, I10 - Essential (primary) hypertension Lyme IgG/IgM w/reflex to WB Today R41.89 - Other symptoms and signs involving cognitive functions and awareness [facility]errals [facility] Referral I48.0 - Paroxysmal atrial fibrillation, R41.89 - Other symptoms and signs involving cognitive functions and awareness Neurology Referral R41.89 - Other symptoms and signs involving cognitive functions and awareness
[2024-08-07 12:49] VITALS: BP 160/90; PULSE 99; O2SAT 96; BMI 22.3
== END 2024-08-07 13:49 | disposition home or self-care (01) ==
PROVIDERS: PCP Internal Medicine; Visit Provider Internal Medicine
DX: Z00.00 Encounter for general adult medical examination without abnormal findings (principal); R41.89 Other symptoms and signs involving cognitive functions and awareness; M16.12 Unilateral primary osteoarthritis, left hip; I48.0 Paroxysmal atrial fibrillation; M17.12 Unilateral primary osteoarthritis, left knee; I10 Essential (primary) hypertension; E78.2 Mixed hyperlipidemia; K58.9 Irritable bowel syndrome, unspecified; R73.01 Impaired fasting glucose; E55.9 Vitamin D deficiency, unspecified; R31.9 Hematuria, unspecified; N81.10 Cystocele, unspecified; F41.9 Anxiety disorder, unspecified

== ENCOUNTER 2024-08-07 20:19 | Inpatient (IN) | payer MEDICARE, MEDICAID, SELFPAY ==
--- NOTE | ~2024-08-07 | CT_ITS ---
EXAMINATION: CT ABDOMEN AND PELVIS WITHOUT CONTRAST CLINICAL INFORMATION: Left-sided flank pain COMPARISON: None available. TECHNIQUE: Multidetector volumetric imaging was performed from the superior aspect of the liver through the pubic symphysis. Sagittal and coronal reformatted images were obtained on the technologist's workstation. This CT examination was performed using dose optimization techniques as appropriate, variously including the following: *Automated exposure control *Adjustment of mA and/or kV according to patient size (this includes techniques or standardized protocols for targeted exams where dose is matched to indication/reason for exam; i.e. extremities or head) *Use of iterative reconstruction technique DLP: 503 mGy-cm FINDINGS: LUNG BASES: The visualized lung bases are unremarkable. LIVER, GALLBLADDER, AND BILIARY TREE: The liver is normal in size with normal attenuation but a lobular border. There is a lobular mass in the region of the caudate lobe that measures 4.1 x 5.4 x 2.3 cm with some irregular calcification (2:16 and 9:33). No other focal hepatic lesion or biliary ductal dilatation is present. Status post cholecystectomy.m PANCREAS: Unremarkable. SPLEEN: Unremarkable. ADRENAL GLANDS: Unremarkable. KIDNEYS AND URETERS: The kidneys are normal in size, shape, and attenuation. There is a left renal pelvic stone measuring 1.8 x 0.8 x 1.3 cm. A 0.5 cm lower pole nonobstructing calculus is present. No Hydronephrosis, hydroureter, or right-sided calculi seen. No perinephric stranding. Bilateral benign Bosniak class I renal cysts are noted with the largest on the left measuring 5.5 cm. These require no additional imaging or follow-up. No solid renal masses are seen. BLADDER: Unremarkable. GASTROINTESTINAL TRACT: The small and large bowel are unremarkable. The appendix is unremarkable. ABDOMINAL WALL: No significant hernia is appreciated. LYMPH NODES: Normal. VASCULAR: Unremarkable. PELVIC VISCERA: The uterus is not seen. An abnormal adnexal mass is not detected. No free intraperitoneal fluid is present. OSSEOUS STRUCTURES: Degenerative changes are present throughout the spine with biconvex thoracolumbar scoliosis CT/CT abdomen pelvis wo IV con IMPRESSION: 1. A cause for the patient's left-sided flank pain has not been found. 2. There is a 1.8 cm left renal pelvic stone without obstruction. 3. Incidental note made of a 5.4 cm lobular mass in the region of the caudate lobe of the liver. MRI is recommended for further evaluation. 4. Other incidental findings as described above. Fleischner guidelines were followed. Electronically signed by: Victor Manuel Hutson MD 08/08/2024 12:39 AM EDT
[2024-08-07 20:59] VITALS: BP 151/88; PULSE 87; RESP 18; TEMP 36.6; O2SAT 95; BMI 20.3
--- NOTE | 2024-08-07 21:07 | ECG_ITS ---
Test Reason : WEAKNESS Blood Pressure : / mmHG Vent. Rate : 091 BPM Atrial Rate : 091 BPM P-R Int : 130 ms QRS Dur : 092 ms QT Int : 358 ms P-R-T Axes : -03 -34 004 degrees QTc Int : 440 ms Sinus rhythm with Premature atrial complexes Left axis deviation Left ventricular hypertrophy with repolarization abnormality ( R in aVL , Jorge product ) Abnormal ECG No previous ECGs available Referred By: Santa Ramírez Electronically Signed By:Josemanuel Lewis
[2024-08-07 21:26] LABS: MANUAL DIFF FLAG NO
[2024-08-07 21:27] LABS: Basophils Percent Auto 0.4 % (0-2); Eosinophils Percent Auto 0.4 % (0-4); Hematocrit 39.5 % (37.0-47.0); Hemoglobin 13.6 g/dl (12.0-16.0); Imm Gran Abs Auto 0.05 X10*3/uL (0.00-0.03); Imm Gran Pct Auto 0.5 % (0.0-0.4); Lymphocytes Absolute Auto 1.7 X10*3/uL (1.2-4.9); Lymphocytes Percent Auto 16.2 % (20-40); Mean Corpuscular HGB Conc 34.4 g/dl (31.0-35.0); Mean Corpuscular Hemoglobin 30.5 pg (27.0-33.0); Mean Corpuscular Volume 88.6 fL (80.0-98.0); Mean Platelet Volume 10.3 fL (9.4-12.3); Monocytes Absolute Auto 0.8 X10*3/uL (0.1-1.2); Monocytes Percent Auto 7.2 % (2-11); Neutrophils Absolute Auto 7.9 x10*3/uL (2.0-8.3); Neutrophils Percent Auto 75.3 % (45-73); Platelet Count 401 X10*3/uL (160-400); Red Blood Count 4.46 X10*6/uL (4.20-5.50); Red Cell Distribution Width 14.2 % (11.0-16.0); White Blood Count 10.5 X10*3/uL (4.8-10.8)
[2024-08-07 21:54] LABS: Alanine Aminotransferase 12 U/L (0-31); Albumin Level 4.3 g/dL (3.5-5.0); Alkaline Phosphatase 141 U/L (39-117); Anion Gap 17 (12-20); Aspartate Amino Transferase 34 U/L (5-31); Bilirubin Direct 0.5 mg/dL (0.0-0.5); Bilirubin Total 0.9 mg/dL (0.0-1.0); Blood Urea Nitrogen 55 mg/dL (9-16); Calcium 11.3 mg/dL (8.4-10.2); Carbon Dioxide 29 mmol/L (22-29); Chloride 99 mmol/L (96-108); Creatinine Clr Calc Pharmacy 16.7; Estimated Glomerular Filt Rate 24; Glucose Random 149 mg/dL (60-115); Lipase 63 U/L (8-78); Magnesium 1.7 mg/dL (1.6-2.6); Potassium 2.8 mmol/L (3.3-5.1); Sodium 142 mmol/L (135-145); Total Protein 7.2 g/dL (6.5-8.0)
[2024-08-07 21:56] LABS: Troponin-I High Sensitivity 56.1 ng/L (<3.5-17.0)
--- NOTE | 2024-08-07 22:18 | PC.NURSE ---
pt ambulated from waiting room with steady gait. pt a&ox4, vss, respirations even and unlabored. pt daughter at bedside. pt states she was told to present to ED from her primary care with elevated troponin and low potassium. pt reports chronic leg pain in LLE from arthritis. pt denies shortness of breath, chest pain, hx of falls. 20g placed in L forearm. pt reports leg pain at 9/10. pt is independently ambulatory baseline. dr burdick aware of pt labs and BP.
[2024-08-07 22:20] VITALS: BP 189/89; PULSE 79; RESP 15; TEMP 36.4; O2SAT 95
--- NOTE | 2024-08-07 22:26 | ED_ITS ---
HPI - Recheck/Abnormal Lab/Rx General Chief Complaint: Recheck/Abnormal Lab/Rx Stated Complaint: labs off-pcp sent her in Time Seen by Provider: 08/07/24 22:26 Source: patient and family Mode of arrival: ambulatory Limitations: no limitations History of Present Illness ED Provider: terri CORREA narrative: Patient's history of dementia paroxysmal AFib arthritis was seen by her PCP on 08/07 for annual physical exam labs were ordered, PCP called the patient to go to the hospital for low potassium and elevated creatinine level patient feel nauseated but no vomiting no urinary symptoms no fever no chills patient is on hydrochlorothiazide 12.5 mg and does have history of hypokalemia in the past patient also complaining of tanya hematuria and left flank pain since yesterday Related Data Home Medications ?Medication ?Instructions ?Recorded ?Confirmed acetaminophen 325 mg tablet 650 mg PO Q6H PRN Pain 08/08/24 08/08/24 dicyclomine 10 mg capsule 20 mg PO QID PRN Abdominal Pain 08/08/24 08/08/24 hydrochlorothiazide 12.5 mg tablet 12.5 mg PO DAILY 08/08/24 08/08/24 Previous Rx's ?Medication ?Instructions ?Recorded atorvastatin 20 mg tablet 20 mg PO DAILY #90 tabs 11/27/23 fenofibrate nanocrystallized 145 145 mg PO DAILY 90 days #90 caps 11/27/23 mg tablet metoprolol succinate 50 mg 50 mg PO DAILY 90 days #90 caps 11/27/23 tablet,extended release 24 hr apixaban 2.5 mg tablet (Eliquis) 2.5 mg PO BID 90 days #180 caps 04/12/24 cholecalciferol (vitamin D3) 50 50 mcg PO DAILY 90 days #90 caps 04/12/24 mcg (2,000 unit) capsule Allergies Allergy/AdvReac Type Severity Reaction Status Date / Time nitrofurantoin Allergy Unknown RASH/FEVER Verified 08/07/24 21:03 [From MACROBID] penicillamine Allergy Unknown rash Verified 08/07/24 21:03 Penicillins [PENICILLINS] Allergy Unknown RASH Verified 08/07/24 21:03 Review of Systems 2 Review of Systems: Yes all other systems are reviewed and are negative PMFSH Past Medical History Medical History Acute kidney injury Hypokalemia Vitamin D deficiency Impaired fasting glucose Overweight (BMI 25.0-29.9) Female bladder prolapse Hematuria Irritable bowel syndrome (IBS) Mixed hyperlipidemia Benign essential hypertension IBS (irritable bowel syndrome) Surgical History History of colonoscopy History of cholecystectomy History of bilateral cataract extraction Family History Family History Father No problems noted. Mother No problems noted. Sister Cancer Social History Social History Household Members Other:: from [facility] Housing: Long-Term Do you presently have visiting nurse or other home services: Yes (from [facility]) Alcohol intake: never Patient Tobacco Use Status: Never used Tobacco e-Cigarette/Vaping Use: Never Used Second Hand Smoke Exposure: No Current occupational status: retired Cognitive needs: No Hearing needs: No Vision needs: No Physical Exam 2 Vital Signs: Vital Signs: Last Vital Signs Temp 96.9 F 08/10/24 03:40 Pulse 60 08/10/24 03:40 Resp 18 08/10/24 03:40 BP 162/88 H 08/10/24 03:40 Pulse Ox 96 08/10/24 03:40 O2 Del Method Room Air 08/10/24 03:40 BMI result Body Mass Index 20.3 Appearance: Alert. Oriented X3. No acute distress. Slightly confused Eyes: PERRLA, No Nystagmus ENT: Pharynx normal. Oral Mucosa moist Neck: Normal inspection. Neck supple. CVS: Normal heart rate and rhythm. Pulses normal. Respiratory: No respiratory distress. Equal air entry bilateral, no wheezing/rales/rhonchi Abdomen: Soft and nontender. Bowel sounds are present, no mass palpable, no CVA tenderness Skin: Skin warm and dry. Normal skin color. Normal skin turgor. Extremities: No lower extremity edema. No calf tenderness Neuro: Oriented X 3. No motor deficit. No sensory deficit.No cerebellar signs , cranial nerves II-XII intact Medications Administered Generic Name Dose Route Start Last Admin Trade Name Freq PRN Reason Stop Dose Admin Acetaminophen 650 mg 08/08/24 03:49 08/09/24 17:19 Acetaminophen 325 Mg Tablet PO 650 mg Q6H PRN Administration Pain, Mild (Pain Scale 1-3), fever or headache Amlodipine Besylate 2.5 mg 08/09/24 12:20 08/09/24 12:38 Amlodipine Besylate 2.5 Mg Tablet PO 2.5 mg DAILY LISA Administration Protocol Atorvastatin Calcium 20 mg 08/09/24 09:00 08/09/24 07:45 Atorvastatin Calcium 20 Mg Tablet PO 20 mg DAILY LISA Administration Melatonin 6 mg 08/08/24 03:49 08/09/24 20:36 Melatonin 3 Mg Tablet PO 6 mg BEDTIME PRN Administration Insomnia Metoprolol Succinate 50 mg 08/08/24 11:00 08/09/24 07:45 Metoprolol Succinate Er 50 Mg Tab.Er.24h PO 50 mg DAILY LISA Administration Protocol Sodium Chloride 3 ml 08/08/24 08:00 08/10/24 00:29 0.9 % Sodium Chloride Flush 3 Ml Syringe IVFLUSH Not Given QSHIFT LISA Discontinued Medications Generic Name Dose Route Start Last Admin Trade Name Freq PRN Reason Stop Dose Admin Amlodipine Besylate 5 mg 08/08/24 02:32 08/08/24 02:35 Amlodipine Besylate 5 Mg Tablet PO 08/08/24 02:33 5 mg ONCE ONE Administration Protocol Hydralazine HCl 10 mg 08/08/24 03:51 08/08/24 03:58 Hydralazine Hcl 20 Mg/Ml Vial IVPUSH 08/08/24 03:52 10 mg ONCE ONE Administration Protocol Potassium Chloride 10 meq in 100 mls @ 100 mls/hr 08/07/24 22:30 08/08/24 03:46 Potassium Chloride/H20 IV 08/08/24 02:29 Infused Q1H LISA Infusion Magnesium Sulfate 2 gm in 50 mls @ 150 mls/hr 08/07/24 22:30 08/07/24 23:02 Magnesium Sulfate/H2o IV 08/07/24 22:49 Infused ONCE ONE Infusion Sodium Chloride 1,000 mls @ 999 mls/hr 08/07/24 22:36 08/08/24 02:04 Ns IV 08/07/24 23:36 Infused .Q1H1M ONE Infusion Sodium Chloride 500 mls @ 80 mls/hr 08/09/24 12:30 08/09/24 12:38 Ns IVCONT 08/09/24 18:44 Not Given .Q6H15M [facility] Potassium Chloride 40 meq 08/08/24 03:49 08/08/24 03:59 Potassium Chloride Packet 20 Meq Packet PO 08/08/24 03:50 40 meq ONCE ONE Administration Potassium Chloride 20 meq 08/09/24 12:21 08/09/24 12:38 Potassium Chloride Packet 20 Meq Packet PO 08/09/24 12:22 20 meq ONCE ONE Administration Tamsulosin HCl 0.4 mg 08/08/24 04:17 08/08/24 04:31 Tamsulosin Hcl 0.4 Mg Capsule PO 08/08/24 04:18 0.4 mg ONCE ONE Administration Vitamin D 50 mcg 08/09/24 09:00 08/09/24 07:46 Cholecalciferol (Vitamin D3) 25 Mcg Tablet PO 50 mcg DAILY LISA Administration Medical Decision Making Medical Decision Making [facility] Narrative: Patient with hypokalemia CARLO left-sided nephrolithiasis with liver mass will admit patient for further evaluation hypokalemia was replaced by IV and p.o. potassium Differential Diagnosis Differential Diagnoses: The differential diagnosis associated with the presentation includes Admission/Observation Consideration of admission/observation: Escalation of care including admission/observation considered Consult Healthcare Provider Management of the patient was discussed with: Hospitalist Lab Data [facility] Lab Attestation statement: I reviewed the patient's lab results. 08/09/24 10:34 08/10/24 05:57 Labs: Lab Results 08/07/24 08/07/24 Range/Units 21:21 23:27 WBC 10.5 (4.8-10.8) X10*3/uL RBC 4.46 (4.20-5.50) X10*6/uL Hgb 13.6 (12.0-16.0) g/dl Hct 39.5 (37.0-47.0) % MCV 88.6 (80.0-98.0) fL MCH 30.5 (27.0-33.0) pg MCHC 34.4 (31.0-35.0) g/dl RDW 14.2 (11.0-16.0) % Plt Count 401 H (160-400) X10*3/uL MPV 10.3 (9.4-12.3) fL Immature Gran % (Auto) 0.5 H (0.0-0.4) % Neut % (Auto) 75.3 H (45-73) % Lymph % (Auto) 16.2 L (20-40) % [place] % (Auto) 7.2 (2-11) % Eos % (Auto) 0.4 (0-4) % Baso % (Auto) 0.4 (0-2) % Lymph # (Auto) 1.7 (1.2-4.9) X10*3/uL [place] # (Auto) 0.8 (0.1-1.2) X10*3/uL Eos # (Auto) 0.0 (0.0-0.4) X10*3/uL Baso # (Auto) 0.0 (0.0-0.2) X10*3/uL Abs Immat Gran (auto) 0.05 H (0.00-0.03) X10*3/uL Absolute Neuts (auto) 7.9 (2.0-8.3) x10*3/uL Absolute Nucleated RBC 0.000 (0.0-0.012) X10*3/uL Nucleated RBC % (auto) 0.0 (0.0-0.2) /100WBC Sodium 142 (135-145) mmol/L Potassium 2.8 L* (3.3-5.1) mmol/L Chloride 99 (96-108) mmol/L Carbon Dioxide 29 (22-29) mmol/L Anion Gap 17 (12-20) BUN 55 H (9-16) mg/dL Creatinine 2.00 H (0.5-1.4) mg/dL Estim Creat Clear Calc 16.7 Estimated GFR 24 Random Glucose 149 H (60-115) mg/dL Calcium 11.3 H (8.4-10.2) mg/dL Magnesium 1.7 (1.6-2.6) mg/dL Total Bilirubin 0.9 (0.0-1.0) mg/dL Direct Bilirubin 0.5 (0.0-0.5) mg/dL AST 34 H (5-31) U/L ALT 12 (0-31) U/L Alkaline Phosphatase 141 H (39-117) U/L Troponin I High Sens 56.1 H* 64.9 H* (<3.5-17.0) ng/L Total Protein 7.2 (6.5-8.0) g/dL Albumin 4.3 (3.5-5.0) g/dL Lipase 63 (8-78) U/L Independent Interpretation I performed an independent interpretation of an: EKG Interpretation: Normal sinus rhythm with heart rate 91 beats per minute left axis deviation LVH no acute STT wave changes Critical Care Time Critical Care Time Critical Care Time: Yes Total Critical Care Time: 55 Attestation: The patient was critically ill with a high probability of imminent or life threatening deterioration. I spent greater than ?60??minutes of discontinuous time evaluating the patient,delivering critical care at the bedside, discussing and evaluating pertinent data with consultants. Critical care time does not include time spent performing separately billable procedures or teaching. Total time spent performing critical care was 55???minutes. Discharge Plan Discharge Clinical Impression: Kidney stone on left side, Renal hematuria Patient Disposition: Admitted As Inpatient Interventions: Admission Worksheet (ED) Last Done: 08/08/24 07:42 Discharge Date/Time: 08/08/24 09:16
[2024-08-07] MEDS: Magnesium Sulfate/H2O 2 GM/50 ML PIGGYBACK IV (22:40)
[2024-08-07] MEDS: 0.9 % Sodium Chloride 1,000 ML 999 ML IV (22:41)
[2024-08-07] MEDS: Potassium Chloride/H20 10 MEQ/100 ML PIGGYBACK 100 MEQ IV (23:03)
[2024-08-08] VITALS (9 sets, daily range): BP systolic 167–192; BP diastolic 64–82; PULSE 68–96; RESP 16–20; TEMP 36.6–37.1; O2SAT 93–98; BMI 20.4
[2024-08-08 00:04] LABS: Troponin-I High Sensitivity 64.9 ng/L (<3.5-17.0)
[2024-08-08] MEDS: Potassium Chloride/H20 10 MEQ/100 ML PIGGYBACK 100 MEQ IV ×3 (00:06→02:28)
[2024-08-08] MEDS: amLODIPine Besylate 5 MG TABLET PO (02:35)
--- NOTE | 2024-08-08 02:36 | PC.NURSE ---
aware of pt high blood pressure, pt medciated per dec.
--- NOTE | 2024-08-08 02:56 | MHC.EDTECH ---
Bladder scan done and 157 ml revealed, RN aware
--- NOTE | 2024-08-08 03:44 | PC.NURSE ---
pt ambulated to bathroom with 1A, pt unable to void at this time, pt bladder scanned. aware.
--- NOTE | 2024-08-08 03:50 | P.HPHOSP_ITS ---
History of Present Illness Date of Service: 08/08/24 Chief Complaint: Abnormal labs This is a 88-year-old female with pertinent history of paroxysmal atrial fibrillation on Eliquis, cognitive dysfunction, osteoarthritis of left knee, essential hypertension, mixed hyperlipidemia, irritable bowel syndrome vitamin-D deficiency who presents to the emergency department for evaluation of abnormal labs. Patient states that she was sent from her PCP's office as kidney function was found to be elevated. She reports tanya blood in urine 3 days prior to presentation. Also has been having left-sided flank pain. Family at bedside reports poor p.o. intake over the last 3 days. No fever, chills, chest pain, palpitations, shortness of breath, changes in bowel habits. Patient states she had difficulty with urination on the day of presentation. In the emergency department, creatinine found to be 2 and potassium found to be 2.8 Duran was inserted and potassium repleted. Review of Systems 2 Constitutional: Constitutional: Reports fatigue, Reports lethargy and Reports poor appetite Cardiovascular: Cardiovascular: Reports no additional cardiovascular complaints Respiratory: Respiratory: Reports no additional respiratory complaints Gastrointestinal: Gastrointestinal: Reports abdominal pain Genitourinary: Genitourinary: Reports hematuria Endocrine: Endocrine: Reports fatigue [facility] Medical History Acute kidney injury Hypokalemia Vitamin D deficiency Impaired fasting glucose Overweight (BMI 25.0-29.9) Female bladder prolapse Hematuria Irritable bowel syndrome (IBS) Mixed hyperlipidemia Benign essential hypertension IBS (irritable bowel syndrome) Family History Father No problems noted. Mother No problems noted. Sister Cancer Surgical History History of colonoscopy History of cholecystectomy History of bilateral cataract extraction Social History Housing: Apartment Alcohol intake: never Patient Tobacco Use Status: Never used Tobacco Smoked in Last 30 Days: No e-Cigarette/Vaping Use: Never Used Second Hand Smoke Exposure: No Use of substances other than those prescribed or required for medical reasons: No Advance Directives: No Advance Directives Information Provided: Yes Do you have a plan to hurt others: No Plan Nutrition Risks: No Nutritional Risk Current occupational status: retired Cognitive needs: No Hearing needs: No Vision needs: No Meds Allergies Allergy/AdvReac Type Severity Reaction Status Date / Time nitrofurantoin Allergy Unknown RASH/FEVER Verified 08/07/24 21:03 [From MACROBID] penicillamine Allergy Unknown rash Verified 08/07/24 21:03 Penicillins [PENICILLINS] Allergy Unknown RASH Verified 08/07/24 21:03 Physical Exam 2 Vital Signs and Narrative: Vital Signs: Last Vital Signs Temp 98.0 F 08/08/24 02:29 Pulse 74 08/08/24 02:29 Resp 18 08/08/24 02:29 BP 192/76 H 08/08/24 02:29 Pulse Ox 93 08/08/24 02:29 O2 Del Method Room Air 08/08/24 02:29 BMI result Body Mass Index 20.3 Elderly female lying in bed in no distress Neck supple, no JVD Regular rate and rhythm, S1-S2 heard Regular breath sounds bilaterally, no wheezing or crackles appreciated Abdomen left flank pain tenderness Patient is awake, alert and oriented to self, place, time and person ; no focal motor deficit Psych: Normal mood No pedal edema Results Labs 08/07/24 21:21 08/08/24 03:53 Labs: Laboratory Results - last 24 hr 08/07/24 08/07/24 21:21 23:27 MCV 88.6 MCH 30.5 MCHC 34.4 RDW 14.2 Plt Count 401 H MPV 10.3 Immature Gran % (Auto) 0.5 H Neut % (Auto) 75.3 H Lymph % (Auto) 16.2 L [place] % (Auto) 7.2 Eos % (Auto) 0.4 Baso % (Auto) 0.4 Lymph # (Auto) 1.7 [place] # (Auto) 0.8 Eos # (Auto) 0.0 Baso # (Auto) 0.0 Abs Immat Gran (auto) 0.05 H Absolute Neuts (auto) 7.9 Absolute Nucleated RBC 0.000 Nucleated RBC % (auto) 0.0 Anion Gap 17 Estim Creat Clear Calc 16.7 Estimated GFR 24 Random Glucose 149 H Calcium 11.3 H Magnesium 1.7 Total Bilirubin 0.9 Direct Bilirubin 0.5 AST 34 H ALT 12 Alkaline Phosphatase 141 H Troponin I High Sens 56.1 H* 64.9 H* Total Protein 7.2 Albumin 4.3 Lipase 63 Imaging Radiologist's Impressions: Impressions Abdomen/Pelvis CT 08/07/24 22:42 IMPRESSION: 1. A cause for the patient's left-sided flank pain has not been found. 2. There is a 1.8 cm left renal pelvic stone without obstruction. 3. Incidental note made of a 5.4 cm lobular mass in the region of the caudate lobe of the liver. MRI is recommended for further evaluation. 4. Other incidental findings as described above. Fleischner guidelines were followed. Electronically signed by: Victor Manuel Hutson MD 08/08/2024 12:39 AM EDT RP Assessment and Plan (1) Acute kidney injury: Status: Acute (2) Hypokalemia: Status: Acute (3) Kidney stone on left side: Status: Acute Plan This is a 88-year-old female with pertinent history of paroxysmal atrial fibrillation on Eliquis, cognitive dysfunction, osteoarthritis of left knee, essential hypertension, mixed hyperlipidemia, irritable bowel syndrome vitamin-D deficiency who presents to the emergency department for evaluation of abnormal labs. #. Acute kidney injury: Creatinine improving with crystalloid resuscitation. Monitor urine output. Avoid nephrotoxins #. Left sided nephrolithiasis: Does have left flank pain and hematuria. Consulted Urology, appreciate assistance. Ordered Flomax. Hematuria without any clots, defer CBI for now. UA pending #. Hypokalemia: Repleted #. Elevated troponin: Likely type 2. Patient without chest pain #. Hypertension: Hold hydrochlorothiazide in the setting of CARLO #. Cognitive dysfunction: Maintain sleep-wake cycle #. Mixed hyperlipidemia: On high-intensity statin #. Paroxysmal atrial fibrillation: hold Eliquis in the setting of hematuria Med rec pending DVT prophylaxis: Mechanical Full code. Discussed with patient and family at bedside Admit as inpatient and will require two night minimum hospital stay for close monitoring of kidney function, management of hematuria left-sided kidney stone (as above), which is not possible in a lesser acute setting. Specialist consult pending Quality Stroke Does the patient have a stroke diagnosis?: No VTE Prior VTE?: No VTE Risk Level:: Medical - moderate - high VTE Device Contraindication: N/A - Device Ordered VTE Drug Contraindication: Treatment Not Indicated
[2024-08-08] MEDS: hydrALAZINE HCl 20 MG/ML VIAL 10 MG IVPUSH (03:58)
[2024-08-08] MEDS: Potassium Chloride Packet 20 MEQ PACKET 40 MEQ PO (03:59)
[2024-08-08 04:15] LABS: Alanine Aminotransferase 9 U/L (0-31); Albumin Level 3.6 g/dL (3.5-5.0); Alkaline Phosphatase 121 U/L (39-117); Anion Gap 17 (12-20); Aspartate Amino Transferase 51 U/L (5-31); Bilirubin Total 0.8 mg/dL (0.0-1.0); Blood Urea Nitrogen 48 mg/dL (9-16); Calcium 9.8 mg/dL (8.4-10.2); Carbon Dioxide 20 mmol/L (22-29); Chloride 105 mmol/L (96-108); Creatinine Clr Calc Pharmacy 21.8; Estimated Glomerular Filt Rate 32; Glucose Random 136 mg/dL (60-115); Potassium 4.5 mmol/L (3.3-5.1); Sodium 137 mmol/L (135-145); Total Protein 6.7 g/dL (6.5-8.0)
--- NOTE | 2024-08-08 04:16 | PC.NURSE ---
16f hernandez catheter placed at this time. pt noted to have possible prolapsed uterus, dr hernandes aware. pt had 300ml output of tea colored urine, no clots observed. ua samples obtained and sent at this time. pt tolerated well.
[2024-08-08 04:19] LABS: Appearance Urine Turbid; Color Urine Dark Yellow; Glucose Urine UA Negative (Negative); Leukocyte Esterase Urine Moderate (2+) (Negative); Nitrite Urine Negative (Negative); Specific Gravity - Urine 1.015 (1.005-1.025); UMIC TRIGGER UACC YES; Urine Blood Large (3+) (Negative); Urine Ketones Negative (Negative); Urine Protein 30 (1+) mg/dL (Neg-Trace)
[2024-08-08 04:29] LABS: Bacteria Urine None Seen (None Seen); RBC Urine >20 /HPF (0-2); Squamous Epithelial Cell Urine >20 /HPF (0-2); UACC Culture Trigger YES
[2024-08-08] MEDS: Tamsulosin HCL 0.4 MG CAPSULE PO (04:31)
--- NOTE | 2024-08-08 04:34 | PC.NURSE ---
aware of pt BP at this time, no new orders. pt medicated per dec, tolerated well with water. report given to overflow.
[2024-08-08 06:07] LABS: MANUAL DIFF FLAG NO
[2024-08-08 06:08] LABS: Basophils Absolute Auto 0.1 X10*3/uL (0.0-0.2); Basophils Percent Auto 0.4 % (0-2); Eosinophils Percent Auto 0.2 % (0-4); Hematocrit 37.3 % (37.0-47.0); Hemoglobin 12.7 g/dl (12.0-16.0); Imm Gran Abs Auto 0.22 X10*3/uL (0.00-0.03); Imm Gran Pct Auto 1.7 % (0.0-0.4); Lymphocytes Absolute Auto 1.4 X10*3/uL (1.2-4.9); Lymphocytes Percent Auto 10.4 % (20-40); Mean Corpuscular Hemoglobin 30.2 pg (27.0-33.0); Mean Corpuscular Volume 88.6 fL (80.0-98.0); Mean Platelet Volume 10.2 fL (9.4-12.3); Monocytes Absolute Auto 0.7 X10*3/uL (0.1-1.2); Monocytes Percent Auto 5.5 % (2-11); Neutrophils Absolute Auto 10.8 x10*3/uL (2.0-8.3); Neutrophils Percent Auto 81.8 % (45-73); Platelet Count 343 X10*3/uL (160-400); Red Blood Count 4.21 X10*6/uL (4.20-5.50); Red Cell Distribution Width 14.3 % (11.0-16.0); White Blood Count 13.2 X10*3/uL (4.8-10.8)
[2024-08-08 06:36] LABS: Anion Gap 14 (12-20); Blood Urea Nitrogen 45 mg/dL (9-16); Calcium 10.5 mg/dL (8.4-10.2); Carbon Dioxide 25 mmol/L (22-29); Chloride 105 mmol/L (96-108); Creatinine Clr Calc Pharmacy 24.6; Estimated Glomerular Filt Rate 37; Glucose Random 130 mg/dL (60-115); Potassium 4.1 mmol/L (3.3-5.1); Sodium 140 mmol/L (135-145)
[2024-08-08] MEDS: 0.9 % Sodium Chloride Flush 3 ML SYRINGE IVFLUSH ×3 (08:07→20:34)
--- NOTE | 2024-08-08 09:38 | PHA.MEDREC ---
Pharmacy Consult ? Medication Reconciliation Pharmacy has completed the medication reconciliation, spoke to patient at bedside who confirmed all meds. Pt stated that she does not take tramadol because it didn't work for her. Stated she takes tylenol and had dicyclomine at some point but ran out.
--- NOTE | 2024-08-08 10:51 | P.PNIM_ITS ---
Subjective Subjective Date of Service: 08/08/24 Interval History: Being followed for acute kidney injury, left-sided nephrolithiasis and incidental finding of liver mass. Patient denies flank pain, no fevers, no chills Duran catheter with clear urine, vitals stable Review of Systems All other system reviewed and are negative Physical Exam 2 Vital Signs: Vital Signs: Last Vital Signs Temp 97.9 F 08/08/24 08:50 Pulse 75 08/08/24 08:50 Resp 16 08/08/24 08:50 BP 167/74 H 08/08/24 08:50 Pulse Ox 95 08/08/24 08:50 O2 Del Method Room Air 08/08/24 08:50 BMI result Body Mass Index 20.4 Const: Other: General resting comfortably in no acute distress. Neck no JVD. CVS regular rate rhythm, Respiratory lungs clear to auscultation, no respiratory distress, no wheeze, no rhonchi. Gastrointestinal abdomen soft, non tender, bowel sounds audible, no guarding , no rigidity. Extremities no edema. Neuro non focal Skin no rash Poor insight No CVA tenderness Objective Data Active Medications Acetaminophen (Acetaminophen 325 Mg Tablet) 650 mg PO Q6H PRN PRN Reason: Pain, Mild (Pain Scale 1-3), fever or headache Calcium Carbonate (Calcium Carbonate 750 Mg Tab.Chew) 750 mg PO Q4H PRN PRN Reason: Heartburn Magnesium Hydroxide (Milk Of Magnesia 30 Ml Oral.Susp) 30 ml PO DAILY PRN PRN Reason: Constipation Melatonin (Melatonin 3 Mg Tablet) 6 mg PO BEDTIME PRN PRN Reason: Insomnia Ondansetron HCl (Ondansetron Hcl 4 Mg/2 Ml Vial) 4 mg IVPUSH Q8H PRN PRN Reason: Nausea and Vomiting Sodium Chloride (0.9 % Sodium Chloride Flush 3 Ml Syringe) [address] [facility] Last Admin: 08/08/24 08:07 Dose: 3 ml Documented By: KOTA [facility] 08/08/24 05:57 08/08/24 05:57 Labs: Laboratory Results - last 24 hr 08/07/24 08/07/24 08/08/24 21:21 23:27 03:53 MCV 88.6 MCH 30.5 MCHC 34.4 RDW 14.2 Plt Count 401 H MPV 10.3 Immature Gran % (Auto) 0.5 H Neut % (Auto) 75.3 H Lymph % (Auto) 16.2 L [place] % (Auto) 7.2 Eos % (Auto) 0.4 Baso % (Auto) 0.4 Lymph # (Auto) 1.7 [place] # (Auto) 0.8 Eos # (Auto) 0.0 Baso # (Auto) 0.0 Abs Immat Gran (auto) 0.05 H Absolute Neuts (auto) 7.9 Absolute Nucleated RBC 0.000 Nucleated RBC % (auto) 0.0 Anion Gap 17 17 Estim Creat Clear Calc 16.7 21.8 Estimated GFR 24 32 Random Glucose 149 H 136 H Calcium 11.3 H 9.8 D Magnesium 1.7 Total Bilirubin 0.9 0.8 Direct Bilirubin 0.5 AST 34 H 51 H ALT 12 9 Alkaline Phosphatase 141 H 121 H Troponin I High Sens 56.1 H* 64.9 H* Total Protein 7.2 6.7 Albumin 4.3 3.6 Lipase 63 Urine Color Urine Appearance Urine pH Ur Specific [place] Urine Protein Urine Glucose (UA) Urine Ketones Urine Blood Urine Nitrite Ur Leukocyte Esterase Urine RBC Urine WBC Ur Squamous Epith Cells Urine Bacteria Hyaline Casts 08/08/24 08/08/24 04:10 05:57 MCV 88.6 MCH 30.2 MCHC 34.0 RDW 14.3 Plt Count 343 MPV 10.2 Immature Gran % (Auto) 1.7 H Neut % (Auto) 81.8 H Lymph % (Auto) 10.4 L [place] % (Auto) 5.5 Eos % (Auto) 0.2 Baso % (Auto) 0.4 Lymph # (Auto) 1.4 [place] # (Auto) 0.7 Eos # (Auto) 0.0 Baso # (Auto) 0.1 Abs Immat Gran (auto) 0.22 H Absolute Neuts (auto) 10.8 H Absolute Nucleated RBC 0.000 Nucleated RBC % (auto) 0.0 Anion Gap 14 Estim Creat Clear Calc 24.6 Estimated GFR 37 Random Glucose 130 H Calcium 10.5 H D Magnesium Total Bilirubin Direct Bilirubin AST ALT Alkaline Phosphatase Troponin I High Sens Total Protein Albumin Lipase Urine Color Dark Yellow Urine Appearance Turbid Urine pH 5.0 Ur Specific [place] 1.015 Urine Protein 30 (1+) H Urine Glucose (UA) Negative Urine Ketones Negative Urine Blood Large (3+) H Urine Nitrite Negative Ur Leukocyte Esterase Moderate (2+) H Urine RBC >20 H Urine WBC 11-20 H Ur Squamous Epith Cells >20 Urine Bacteria None Seen Hyaline Casts 6-10 Assessment and Plan (1) Renal hematuria: Status: Acute (2) Kidney stone on left side: Status: Acute (3) Hypokalemia: Status: Acute (4) Acute kidney injury: Status: Acute Plan 88-year-old female with pertinent history of paroxysmal atrial fibrillation on Eliquis, cognitive dysfunction, osteoarthritis of left knee, essential hypertension, mixed hyperlipidemia, irritable bowel syndrome vitamin-D deficiency who presents to the emergency department for evaluation of abnormal labs. #. Acute kidney injury: Creatinine improved from 2 to 1.36, last GFR 55 in March of 2022 , will avoid hypotension and nephrotoxins follow renal function #. Left sided nephrolithiasis: Presented with left flank pain and hematuria. CT abdomen showed left renal pelvic stone measuring 1.8 into 0.8 in 1.3 cm, no hydronephrosis, hydroureter for right-sided calculi noted, no perinephric stranding Case discussed with Urology, no recurrent hematuria history of chronic 3+ blood in urine, UA showed no bacteria, outpatient urology follow-up Hold Eliquis today and resume after 48 hours #. Hypokalemia: Likely due to hydrochlorothiazide, Repleted and normalized. #. Elevated troponin: Troponin 56.1, repeat 64.9, No chest pain, no acute EKG changes Likely due to CARLO , follow clinical course. # incidental finding of 5.4 cm lobular mass in the region of caudate lobe of liver, patient denies nausea vomiting or abdominal pain, MRI is recommended for further evaluation due to renal impairment will hold MRI will do CA 19-9 and alpha-fetoprotein, case discussed with daughter she wishes to proceed with testing, outpatient MRI study and GI eval #. Hypertension: Resume metoprolol and Hold hydrochlorothiazide in the setting of CARLO, follow blood pressure. #. Cognitive dysfunction: Maintain sleep-wake cycle, mild pleasant confusion, lives alone daughter concerned about dispo plan will obtain PT eval prior to discharge #. Mixed hyperlipidemia: Continue Lipitor #. Paroxysmal atrial fibrillation: Continue metoprolol, hold Eliquis in the setting of hematuria DVT prophylaxis: Mechanical device Full code. Patient will require continued inpatient hospitalization for management of acute kidney injury, expert consultation and follow-up on hematuria. Quality Stroke Does the patient have a stroke diagnosis?: No VTE Prior VTE?: No VTE Risk Level:: Medical - moderate - high VTE Device Contraindication: N/A - Device Ordered VTE Drug Contraindication: Treatment Not Indicated
--- NOTE | 2024-08-08 12:39 | MHC.CM.PN ---
IMM delivered. Patient from [facility] @ [facility]. Independent at baseline. Denies use of DME or services. PCP Darci Mendenhall MD Completed HCP naming her daughter, Victoria, as HCA. DP: Goal is home w/ services. Requesting PT eval, as she is now ambulating w/ walker. MD aware. Referral to [facility] per request. Daughter will transport. CM will continue to follow.
--- NOTE | 2024-08-08 14:08 | PM.UROCN ---
History of Present Illness Consult details Consult date: 08/08/24 Narrative: 88-year-old female with pertinent history of paroxysmal atrial fibrillation on Eliquis, cognitive dysfunction, osteoarthritis of left knee, essential hypertension, mixed hyperlipidemia, irritable bowel syndrome vitamin-D deficiency who presents to the emergency department for evaluation of abnormal labs. Patient states that she was sent from her PCP's office as kidney function was found to be elevated. She reports tanya blood in urine 3 days prior to presentation. Also has been having left-sided flank pain. Review of Systems Review of Systems: Yes all other systems are reviewed and are negative Constitutional: Constitutional: Reports no additional constitutional complaints Eyes: Eyes: Reports no additional eye complaints ENT: Reports system reviewed and no additional complaints, except as documented Cardiovascular: Cardiovascular: Reports no additional cardiovascular complaints Respiratory: Respiratory: Reports no additional respiratory complaints Gastrointestinal: Gastrointestinal: Reports no additional gastrointestinal complaints Genitourinary: Genitourinary: Reports as per HPI Musculoskeletal: Musculoskeletal: Reports no additional musculoskeletal complaints Integumentary/Breasts: Skin/Breast: Reports system reviewed and no additional complaints, except as docu Neurologic: Reports system reviewed and no additional complaints, except as documented Psychiatric: Psychiatric: Reports no additional psychiatric complaints Endocrine: Endocrine: Reports no additional endocrine complaints Hematologic/Lymphatic: Hematologic/Lymphatic: Reports no additional hematologic/lymphatic complaints Allergic/Immunologic: Allergic/Immunologic: Reports no additional allergic/immunologic complaints [facility] Past Medical History Medical History Acute kidney injury Hypokalemia Vitamin D deficiency Impaired fasting glucose Overweight (BMI 25.0-29.9) Female bladder prolapse Hematuria Irritable bowel syndrome (IBS) Mixed hyperlipidemia Benign essential hypertension IBS (irritable bowel syndrome) Family History Family History Father No problems noted. Mother No problems noted. Sister Cancer Surgical History Surgical History History of colonoscopy History of cholecystectomy History of bilateral cataract extraction Social History Social History Household Members Other:: from [facility] Housing: [facility] Do you presently have visiting nurse or other home services: Yes (from [facility]) Alcohol intake: never Patient Tobacco Use Status: Never used Tobacco Tobacco use type: Cigarette e-Cigarette/Vaping Use: Never Used Second Hand Smoke Exposure: No Current occupational status: retired Cognitive needs: No Hearing needs: No Vision needs: No Meds Allergies Allergy/AdvReac Type Severity Reaction Status Date / Time nitrofurantoin Allergy Unknown RASH/FEVER Verified 08/29/24 13:04 [From MACROBID] penicillamine Allergy Unknown rash Verified 08/29/24 13:04 Penicillins [PENICILLINS] Allergy Unknown RASH Verified 08/29/24 13:04 Active Medications: Current Medications Acetaminophen (Acetaminophen 325 Mg Tablet) 650 mg PO Q6H PRN PRN Reason: Pain, Mild (Pain Scale 1-3), fever or headache Atorvastatin Calcium (Atorvastatin Calcium 20 Mg Tablet) 20 mg PO DAILY [facility] Calcium Carbonate (Calcium Carbonate 750 Mg Tab.Chew) 750 mg PO Q4H PRN PRN Reason: Heartburn Magnesium Hydroxide (Milk Of Magnesia 30 Ml Oral.Susp) 30 ml PO DAILY PRN PRN Reason: Constipation Melatonin (Melatonin 3 Mg Tablet) 6 mg PO BEDTIME PRN PRN Reason: Insomnia Metoprolol Succinate (Metoprolol Succinate Er 50 Mg Tab.Er.24h) 50 mg PO DAILY [facility]; Protocol Ondansetron HCl (Ondansetron Hcl 4 Mg/2 Ml Vial) 4 mg IVPUSH Q8H PRN PRN Reason: Nausea and Vomiting Sodium Chloride (0.9 % Sodium Chloride Flush 3 Ml Syringe) 3 ml IVFLUSH QSHIFT [facility] Last Admin: 08/08/24 08:07 Dose: 3 ml Vitamin D (Cholecalciferol (Vitamin D3) 25 Mcg Tablet) 50 mcg PO DAILY [facility] Home Medications ?Medication ?Instructions ?Recorded ?Confirmed ?Last Taken ?Type acetaminophen 325 mg tablet 650 mg PO Q6H PRN Pain 08/08/24 08/14/24 Unknown History dicyclomine 10 mg capsule 20 mg PO QID PRN Abdominal Pain 08/08/24 08/14/24 08/05/24 History Physical Exam Vital Signs: Vital Signs: Last Vital Signs Temp 97.9 F 08/08/24 08:50 Pulse 75 08/08/24 08:50 Resp 16 08/08/24 08:50 BP 167/74 H 08/08/24 08:50 Pulse Ox 95 08/08/24 08:50 O2 Del Method Room Air 08/08/24 08:50 BMI result Body Mass Index 20.4 Const: General: cooperative, healthy appearing and no acute distress HEENT: Head: Yes normal to inspection, Yes normocephalic and Yes atraumatic Eyes: Conjunctivae: conjunctivae normal Neck: Neck: Yes normal visual inspection and Yes trachea midline Chest: Chest palpation & inspection: normal inspection of the chest Resp: Effort & Inspection: normal respiratory effort Cardio: Rate: regular rate GI: Inspection: Yes normal to inspection Palpation (GI): Soft to palpation Psych: Appearance: grossly normal Results Labs 08/09/24 10:34 08/10/24 11:49 Labs: Abnormal lab results 08/07/24 08/07/24 08/08/24 Range/Units 21:21 23:27 03:53 WBC (4.8-10.8) X10*3/uL Plt Count 401 H (160-400) X10*3/uL Immature Gran % (Auto) 0.5 H (0.0-0.4) % Neut % (Auto) 75.3 H (45-73) % Lymph % (Auto) 16.2 L (20-40) % Abs Immat Gran (auto) 0.05 H (0.00-0.03) X10*3/uL Absolute Neuts (auto) (2.0-8.3) x10*3/uL Potassium 2.8 L* (3.3-5.1) mmol/L Carbon Dioxide 20 L (22-29) mmol/L BUN 55 H 48 H (9-16) mg/dL Creatinine 2.00 H 1.53 H (0.5-1.4) mg/dL Random Glucose 149 H 136 H (60-115) mg/dL Calcium 11.3 H (8.4-10.2) mg/dL AST 34 H 51 H (5-31) U/L Alkaline Phosphatase 141 H 121 H (39-117) U/L Troponin I High Sens 56.1 H* 64.9 H* (<3.5-17.0) ng/L Urine Protein (Neg-Trace) mg/dL Urine Blood (Negative) Ur Leukocyte Esterase (Negative) Urine RBC (0-2) /HPF Urine WBC (0-5) /HPF 08/08/24 08/08/24 Range/Units 04:10 05:57 WBC 13.2 H (4.8-10.8) X10*3/uL Plt Count (160-400) X10*3/uL Immature Gran % (Auto) 1.7 H (0.0-0.4) % Neut % (Auto) 81.8 H (45-73) % Lymph % (Auto) 10.4 L (20-40) % Abs Immat Gran (auto) 0.22 H (0.00-0.03) X10*3/uL Absolute Neuts (auto) 10.8 H (2.0-8.3) x10*3/uL Potassium (3.3-5.1) mmol/L Carbon Dioxide (22-29) mmol/L BUN 45 H (9-16) mg/dL Creatinine (0.5-1.4) mg/dL Random Glucose 130 H (60-115) mg/dL Calcium 10.5 H D (8.4-10.2) mg/dL AST (5-31) U/L Alkaline Phosphatase (39-117) U/L Troponin I High Sens (<3.5-17.0) ng/L Urine Protein 30 (1+) H (Neg-Trace) mg/dL Urine Blood Large (3+) H (Negative) Ur Leukocyte Esterase Moderate (2+) H (Negative) Urine RBC >20 H (0-2) /HPF Urine WBC 11-20 H (0-5) /HPF Short CBC 08/07/24 08/08/24 Range/Units 21:21 05:57 WBC 10.5 13.2 H (4.8-10.8) X10*3/uL Hgb 13.6 12.7 (12.0-16.0) g/dl Hct 39.5 37.3 (37.0-47.0) % Plt Count 401 H 343 (160-400) X10*3/uL BMP 08/07/24 08/08/24 08/08/24 21:21 03:53 05:57 Sodium 142 137 140 Potassium 2.8 L* 4.5 D 4.1 Chloride 99 105 105 Carbon Dioxide 29 20 L 25 BUN 55 H 48 H 45 H Creatinine 2.00 H 1.53 H 1.36 Calcium 11.3 H 9.8 D 10.5 H D Liver Function 08/07/24 08/08/24 Range/Units 21:21 03:53 Total Bilirubin 0.9 0.8 (0.0-1.0) mg/dL Direct Bilirubin 0.5 (0.0-0.5) mg/dL AST 34 H 51 H (5-31) U/L ALT 12 9 (0-31) U/L Alkaline Phosphatase 141 H 121 H (39-117) U/L Albumin 4.3 3.6 (3.5-5.0) g/dL Urine 08/08/24 Range/Units 04:10 Urine Color Dark Yellow Urine Appearance Turbid Urine pH 5.0 (5.0-9.0) Ur Specific [place] 1.015 (1.005-1.025) Urine Protein 30 (1+) H (Neg-Trace) mg/dL Urine Glucose (UA) Negative (Negative) mg/dL All other labs normal. Imaging Additional studies: Date of Service: 08/07/24 CT ABDOMEN AND PELVIS WITHOUT CONTRAST CLINICAL INFORMATION: Left-sided flank pain COMPARISON: None available. TECHNIQUE: Multidetector volumetric imaging was performed from the superior aspect of the liver through the pubic symphysis. Sagittal and coronal reformatted images were obtained on the technologist's workstation. This CT examination was performed using dose optimization techniques as appropriate, variously including the following: *Automated exposure control *Adjustment of mA and/or kV according to patient size (this includes techniques or standardized protocols for targeted exams where dose is matched to indication/reason for exam; i.e. extremities or head) *Use of iterative reconstruction technique DLP: 503 mGy-cm FINDINGS: LUNG BASES: The visualized lung bases are unremarkable. LIVER, GALLBLADDER, AND BILIARY TREE: The liver is normal in size with normal attenuation but a lobular border. There is a lobular mass in the region of the caudate lobe that measures 4.1 x 5.4 x 2.3 cm with some irregular calcification (2:16 and 9:33). No other focal hepatic lesion or biliary ductal dilatation is present. Status post cholecystectomy.m PANCREAS: Unremarkable. SPLEEN: Unremarkable. ADRENAL GLANDS: Unremarkable. KIDNEYS AND URETERS: The kidneys are normal in size, shape, and attenuation. There is a left renal pelvic stone measuring 1.8 x 0.8 x 1.3 cm. A 0.5 cm lower pole nonobstructing calculus is present. No Hydronephrosis, hydroureter, or right-sided calculi seen. No perinephric stranding. Bilateral benign Bosniak class I renal cysts are noted with the largest on the left measuring 5.5 cm. These require no additional imaging or follow-up. No solid renal masses are seen. BLADDER: Unremarkable. GASTROINTESTINAL TRACT: The small and large bowel are unremarkable. The appendix is unremarkable. ABDOMINAL WALL: No significant hernia is appreciated. LYMPH NODES: Normal. VASCULAR: Unremarkable. PELVIC VISCERA: The uterus is not seen. An abnormal adnexal mass is not detected. No free intraperitoneal fluid is present. OSSEOUS STRUCTURES: Degenerative changes are present throughout the spine with biconvex thoracolumbar scoliosis IMPRESSION: 1. A cause for the patient's left-sided flank pain has not been found. 2. There is a 1.8 cm left renal pelvic stone without obstruction. 3. Incidental note made of a 5.4 cm lobular mass in the region of the caudate lobe of the liver. MRI is recommended for further evaluation. 4. Other incidental findings as described above. Assessment and Plan (1) Kidney stone on left side: Status: Acute (2) UTI (urinary tract infection): Status: Acute (3) Acute kidney injury: Status: Resolved Plan Left kidney stone is non-obstructive. Recommend IV fluid hydration, Abx out patient Urology follow up Procedures Date of Service Date of Service: 09/03/24
[2024-08-08] MEDS: Metoprolol Succinate ER 50 MG TAB.ER.24H PO (15:31)
--- NOTE | 2024-08-08 20:00 | PC.NURSE ---
Upon initial assessment, family at bedside, pt resting quietly in bed, denies pain at this time. Hernandez catheter in place. 20G LFA flushes well, CDI. Pt AOx2, can tell me birthday and full name, confused on place, pt believes she is in a hotel. Continues to try to get up to use the bathroom, pt reminded about hernandez catheter, and states it doesn't catch it all. Pt then found standing at bedside, holding hernandez bag, hernandez still intact, pt returned back to bed with no difficulties. Respirations even non-labored, some restlessness noted.
[2024-08-08] MEDS: Melatonin 3 MG TABLET 6 MG PO (20:31)
--- NOTE | 2024-08-08 21:47 | PC.NURSE ---
Pt found in bed putting tissues to Left arm, blood found on sheets and blanket, IV found on bedside table.
[2024-08-09 03:47] VITALS: BP 148/70; PULSE 70; RESP 18; TEMP 37.2; O2SAT 97
--- NOTE | 2024-08-09 06:02 | PC.NURSE ---
pt refused blood draw, pt reassured that labs are necessary to go home. Pt stated you got it wrong they did it last week. This RN educated pt on why we need to draw her labs, one unsuccessful attempt was made.
[2024-08-09 07:36] VITALS: BP 164/63; PULSE 61; RESP 16; TEMP 36; O2SAT 97
[2024-08-09] MEDS: Atorvastatin Calcium 20 MG TABLET PO (07:45)
[2024-08-09] MEDS: Metoprolol Succinate ER 50 MG TAB.ER.24H PO (07:45)
[2024-08-09] MEDS: Cholecalciferol (Vitamin D3) 25 MCG TABLET 50 MCG PO (07:46)
[2024-08-09] MEDS: Acetaminophen 325 MG TABLET 650 MG PO ×2 (09:14→17:19)
[2024-08-09 10:34] VITALS: BP 164/63; PULSE 61; O2SAT 97
[2024-08-09 10:52] LABS: Hemoglobin 12.8 g/dl (12.0-16.0); Mean Corpuscular HGB Conc 33.7 g/dl (31.0-35.0); Mean Corpuscular Hemoglobin 30.3 pg (27.0-33.0); Mean Platelet Volume 10.6 fL (9.4-12.3); Platelet Count 332 X10*3/uL (160-400); Red Blood Count 4.22 X10*6/uL (4.20-5.50); Red Cell Distribution Width 14.5 % (11.0-16.0); White Blood Count 11.6 X10*3/uL (4.8-10.8)
[2024-08-09 11:02] LABS: Anion Gap 13 (12-20); Blood Urea Nitrogen 33 mg/dL (9-16); Calcium 11.2 mg/dL (8.4-10.2); Carbon Dioxide 28 mmol/L (22-29); Chloride 104 mmol/L (96-108); Creatinine Clr Calc Pharmacy 30.7; Estimated Glomerular Filt Rate 47; Glucose Random 136 mg/dL (60-115); Potassium 3.3 mmol/L (3.3-5.1); Sodium 142 mmol/L (135-145)
--- NOTE | 2024-08-09 12:12 | P.PNIM_ITS ---
Subjective Subjective Date of Service: 08/09/24 Interval History: Pleasantly confused being followed for CARLO, BP slightly elevated hydrochlorothiazide on hold, patient pulled her Duran catheter some bleeding noted, later urine noted to be clear, Eliquis on hold. Review of Systems All other system reviewed and are negative. Physical Exam 2 Vital Signs: Vital Signs: Last Vital Signs Temp 96.8 F 08/09/24 07:36 Pulse 61 08/09/24 10:34 Resp 16 08/09/24 07:36 BP 164/63 H 08/09/24 10:34 Pulse Ox 97 08/09/24 10:34 O2 Del Method Room Air 08/09/24 03:47 BMI result Body Mass Index 20.4 Const: Other: General resting comfortably in no acute distress. Neck no JVD. CVS regular rate rhythm, Respiratory lungs clear to auscultation, no respiratory distress, no wheeze, no rhonchi. Gastrointestinal abdomen soft, non tender, bowel sounds audible, no guarding , no rigidity. Extremities no edema. Neuro non focal Skin no rash Poor insight No CVA tenderness Objective Data Active Medications Acetaminophen (Acetaminophen 325 Mg Tablet) 650 mg PO Q6H PRN PRN Reason: Pain, Mild (Pain Scale 1-3), fever or headache Last Admin: 08/09/24 09:14 Dose: 650 mg Documented By: FREDY Atorvastatin Calcium (Atorvastatin Calcium 20 Mg Tablet) 20 mg PO DAILY [facility] Last Admin: 08/09/24 07:45 Dose: 20 mg Documented By: FREDY Magnesium Hydroxide (Milk Of Magnesia 30 Ml Oral.Susp) 30 ml PO DAILY PRN PRN Reason: Constipation Melatonin (Melatonin 3 Mg Tablet) 6 mg PO BEDTIME PRN PRN Reason: Insomnia Last Admin: 08/08/24 20:31 Dose: 6 mg Documented By: AKANKSHA Metoprolol Succinate (Metoprolol Succinate Er 50 Mg Tab.Er.24h) 50 mg PO DAILY [facility]; Protocol Last Admin: 08/09/24 07:45 Dose: 50 mg Documented By: FREDY Ondansetron HCl (Ondansetron Hcl 4 Mg/2 Ml Vial) 4 mg IVPUSH Q8H PRN PRN Reason: Nausea and Vomiting Sodium Chloride (0.9 % Sodium Chloride Flush 3 Ml Syringe) 3 ml IVFLUSH QSHIFT [facility] Last Admin: 08/09/24 07:45 Dose: Not Given Documented By: FREDY Non-Admin Reason: No Access Labs 08/09/24 10:34 08/09/24 10:34 Labs: Laboratory Results - last 24 hr 08/09/24 10:34 MCV 90.0 MCH 30.3 MCHC 33.7 RDW 14.5 Plt Count 332 MPV 10.6 Absolute Nucleated RBC 0.000 Nucleated RBC % (auto) 0.0 Anion Gap 13 Estim Creat Clear Calc 30.7 Estimated GFR 47 Random Glucose 136 H Calcium 11.2 H D Microbiology Microbiology Results: Microbiology 08/08/24 Unknown Urine Culture - Final Urine Catheterized - Duran Catheter Assessment and Plan (1) Renal hematuria: Status: Acute (2) Kidney stone on left side: Status: Acute (3) Acute kidney injury: Status: Acute (4) Hypokalemia: Status: Acute Plan 88-year-old female with pertinent history of paroxysmal atrial fibrillation on Eliquis, cognitive dysfunction, osteoarthritis of left knee, essential hypertension, mixed hyperlipidemia, irritable bowel syndrome vitamin-D deficiency who presents to the emergency department for evaluation of abnormal labs. #. Acute kidney injury: Creatinine improved from 2 to 1.1, last GFR 55 in March of 2022 , will avoid hypotension and nephrotoxins follow renal function, #. Left sided nephrolithiasis: Presented with left flank pain and hematuria. CT abdomen showed left renal pelvic stone measuring 1.8 into 0.8 in 1.3 cm, no hydronephrosis, hydroureter for right-sided calculi noted, no perinephric stranding Case discussed with Urology, no recurrent hematuria history of chronic 3+ blood in urine, UA showed no bacteria, outpatient urology follow-up Hold Eliquis today and resume at a.m. Left-sided flank pain likely radiation from left hip and knee osteoarthritis . Leukocytosis trending down likely reactive #. Hypokalemia: Likely due to hydrochlorothiazide, Repleted and normalized. #. Elevated troponin: Troponin 56.1, repeat 64.9, No chest pain, no acute EKG changes Likely due to CARLO , follow clinical course. # incidental finding of 5.4 cm lobular mass in the region of caudate lobe of liver, patient denies nausea vomiting or abdominal pain, MRI is recommended for further evaluation due to renal impairment will hold MRI will do CA 19-9 and alpha-fetoprotein, case discussed with daughter she wishes to proceed with testing, outpatient MRI study and GI eval per pcp. #. Hypertension: Noted to have elevated blood pressure continue metoprolol and add Norvasc will hold hydrochlorothiazide due to CARLO #. Cognitive dysfunction: Maintain sleep-wake cycle, mild pleasant confusion, lives alone daughter concerned about dispo plan , PT eval obtained they recommend rehab #. Mixed hyperlipidemia: Continue Lipitor #. Paroxysmal atrial fibrillation: Continue metoprolol, hold Eliquis in the setting of hematuria # mild hypercalcemia likely due to dehydration will hold Tums and vitamin-D follow labs encourage by mouth intake DVT prophylaxis: Mechanical device Full code. Patient will require continued inpatient hospitalization for management of acute kidney injury, and follow-up on hematuria. Quality Stroke Does the patient have a stroke diagnosis?: No VTE Prior VTE?: No VTE Risk Level:: Medical - moderate - high VTE Device Contraindication: N/A - Device Ordered VTE Drug Contraindication: Treatment Not Indicated
[2024-08-09] MEDS: Potassium Chloride Packet 20 MEQ PACKET PO (12:38)
[2024-08-09] MEDS: amLODIPine Besylate 2.5 MG TABLET PO (12:38)
--- NOTE | 2024-08-09 12:59 | MHC.CM.PN ---
ENR REVIEWED AND PER MD ROUNDS, PT IS NOT MEDICALLY CLEARED FOR DC (CARLO, HEMATURIA) P.T. HAS RECOMMENDED STR, PT DEFERS TO DAUGHTER ABOUT REHAB CHOICES. DAUGHTER RODY REQUESTS CENTERS [facility]. [facility] HAS OFFERED A BED PENDING AUTH. DAUGHTER INFORMED AND ACCEPTS BED OFFER. AUTH PROCESS STARTED IN ANTICIPATION FOR MONDAY DC. CM WILL CONTINUE TO FOLLOW FOR ANY CHANGE TO DC PLAN/NEEDS
[2024-08-09 14:58] VITALS: BP 141/61; PULSE 80; RESP 16; TEMP 36.4; O2SAT 95
[2024-08-09 19:32] VITALS: BP 142/63; PULSE 67; RESP 16; TEMP 36.6; O2SAT 97
[2024-08-09] MEDS: Melatonin 3 MG TABLET 6 MG PO (20:36)
[2024-08-10 03:40] VITALS: BP 162/88; PULSE 60; RESP 18; TEMP 36.1; O2SAT 96
[2024-08-10 06:42] LABS: Anion Gap 13 (12-20); Blood Urea Nitrogen 28 mg/dL (9-16); Calcium 10.3 mg/dL (8.4-10.2); Carbon Dioxide 27 mmol/L (22-29); Chloride 105 mmol/L (96-108); Creatinine Clr Calc Pharmacy 39.3; Estimated Glomerular Filt Rate > 60; Glucose Random 103 mg/dL (60-115); Sodium 142 mmol/L (135-145)
[2024-08-10 08:00] VITALS: BP 152/70; PULSE 73; RESP 16; TEMP 36.9; O2SAT 98
[2024-08-10] MEDS: Atorvastatin Calcium 20 MG TABLET PO (08:26)
[2024-08-10] MEDS: Metoprolol Succinate ER 50 MG TAB.ER.24H PO (08:26)
[2024-08-10] MEDS: Potassium Chloride ER 20 MEQ TAB.ER.PRT 40 MEQ PO (08:26)
[2024-08-10] MEDS: amLODIPine Besylate 2.5 MG TABLET PO (08:26)
[2024-08-10] MEDS: Acetaminophen 325 MG TABLET 650 MG PO ×2 (08:33→21:00)
[2024-08-10 12:18] LABS: Potassium 3.6 mmol/L (3.3-5.1)
--- NOTE | 2024-08-10 12:25 | P.DS_ITS ---
DS: Providers Provider Date of Service: 08/13/24 Date of admission: 08/08/24 03:49 Date of discharge: 08/13/24 Primary care physician: Darci Mendenhall MD Consults: 08/08/24 04:11 Consult to Urology Routine Consulting Provider: [facility] Reason for consultation: blood in urine, left kidney stone DS: Diagnosis Discharge Diagnosis (1) Renal hematuria: Status: Acute (2) Kidney stone on left side: Status: Acute (3) Acute kidney injury: Status: Acute (4) Hypokalemia: Status: Acute DS: Summary Hospital Course Hospital Course: History of presenting illness: Date of Service: 08/08/24 Chief Complaint: Abnormal labs This is a 88-year-old female with pertinent history of paroxysmal atrial fibrillation on Eliquis, cognitive dysfunction, osteoarthritis of left knee, essential hypertension, mixed hyperlipidemia, irritable bowel syndrome vitamin-D deficiency who presents to the emergency department for evaluation of abnormal labs. Patient states that she was sent from her PCP's office as kidney function was found to be elevated. She reports tanya blood in urine 3 days prior to presentation. Also has been having left-sided flank pain. Family at bedside reports poor p.o. intake over the last 3 days. No fever, chills, chest pain, palpitations, shortness of breath, changes in bowel habits. Patient states she had difficulty with urination on the day of presentation. In the emergency department, creatinine found to be 2 and potassium found to be 2.8 Duran was inserted and potassium repleted. Hospital course: 88-year-old female with pertinent history of paroxysmal atrial fibrillation on Eliquis, cognitive dysfunction, osteoarthritis of left knee, essential hypertension, mixed hyperlipidemia, irritable bowel syndrome vitamin-D deficiency admitted to medical floor due to abnormal labs showing acute kidney injury, hypokalemia and also with left flank pain and hematuria. #. Acute kidney injury and hypokalemia: Likely prerenal , treated with IV fluids and potassium replacement, with normalization of renal function and potassium, lab abnormalities likely due to hydrochlorothiazide that has been discontinued , patient also noted to have elevated troponin 56.1, repeat 64.9, patient had no chest pain, no acute EKG changes noted Likely due to CARLO , no further workup was warranted In regard to left flank pain and hematuria CT abdomen was obtained that showed left renal pelvic stone measuring 1.8 x 0.8 x1.3 cm, no hydronephrosis, hydroureter noted, no perinephric stranding , Eliquis was held during hospitalization , no recurrent hematuria noted, history of chronic 3+ blood in urine, UA showed no bacteria, patient evaluated by urologist recommend outpatient urology follow-up Eliquis has been restarted with no recurrent bleed, left flank pain likely referred from left knee and hip osteoarthritis , Leukocytosis trended down likely reactive. # incidental finding of 5.4 cm lobular mass in the region of caudate lobe of liver, patient denies nausea, vomiting or abdominal pain, MRI is recommended for further evaluation due to renal impairment will hold MRI , CA 19-9 and alpha-fetoprotein obtained report pending, case discussed with daughter she wishes to proceed with testing, recommend outpatient MRI study and GI eval per pcp. #. Hypertension: continue metoprolol and Norvasc [address] of hydrochlorothiazide with good blood pressure control. #. Cognitive dysfunction: mild pleasant confusion, no behavioral issues noted recommend outpatient follow-up with PCP. #. Mixed hyperlipidemia: Continue Lipitor #. Paroxysmal atrial fibrillation: Continue metoprolol, and Eliquis. Time Attestation Discharge Coordination Time (in mins): 36 Quality: Safe Use of Opioids Does Pt have an Active Cancer Diagnosis on the Problem List?: No Quality: Stroke Does the patient have a stroke diagnosis?: No Physical Exam Vital Signs: Vital Signs: Last Vital Signs Temp 98.5 F 08/10/24 08:00 Pulse 73 08/10/24 08:00 Resp 16 08/10/24 08:00 BP 152/70 H 08/10/24 08:00 Pulse Ox 98 08/10/24 08:00 O2 Del Method Room Air 08/10/24 08:00 BMI result Body Mass Index 20.4 Const: Other: General resting comfortably in no acute distress. Neck no JVD. CVS regular rate rhythm, Respiratory lungs clear to auscultation, no respiratory distress, no wheeze, no rhonchi. Gastrointestinal abdomen soft, non tender, bowel sounds audible, no guarding , no rigidity. Extremities no edema. Good range of motion left hip. Neuro non focal Skin no rash Poor insight No CVA tenderness DS: Data Data Completed and Pending Labs on day of discharge: Laboratory Results - last 24 hr 08/10/24 08/10/24 05:57 11:49 Sodium 142 Potassium 3.0 L 3.6 Chloride 105 Carbon Dioxide 27 Anion Gap 13 BUN 28 H Creatinine 0.86 Estim Creat Clear Calc 39.3 Estimated GFR > 60 Random Glucose 103 Calcium 10.3 H D Discharge Plan Discharge Anticipated Discharge Date/Time: 08/13/24 10:39 Patient Disposition: Home Health Service Discharge Diagnosis: Acute kidney injury Hematuria Elevated troponin Left nephrolithiasis Lobular mass in liver Referrals: Darci Mendenhall MD [Primary Care Provider] - 1 Week Discharge Medications: New amlodipine 5 mg Tablet 5 mg PO DAILY Qty: 30 0RF Protocol: Hold for SBP< HOLD for SBP < : 90 Continued Eliquis 2.5 mg tablet 2.5 mg PO BID 90 Days Qty: 180 0RF cholecalciferol (vitamin D3) 50 mcg (2,000 unit) capsule 50 mcg PO DAILY 90 Days Qty: 90 3RF acetaminophen 325 mg Tablet 650 mg PO Q6H PRN (Reason: Pain) dicyclomine 10 mg capsule 20 mg PO QID PRN (Reason: Abdominal Pain) atorvastatin 20 mg tablet 20 mg PO DAILY Qty: 90 3RF fenofibrate nanocrystallized 145 mg tablet 145 mg PO DAILY 90 Days Qty: 90 1RF metoprolol succinate 50 mg tablet extended release 24 hr 50 mg PO DAILY 90 Days Qty: 90 1RF Discontinued hydrochlorothiazide 12.5 mg tablet 12.5 mg PO DAILY Discharge Orders: Discharge Order (Routine); Ordered 08/13/24 Ordered By: Frederick Ramsey Diet: Advance to usual diet Activity on Discharge: As tolerated Stand Alone Forms: Patient Portal Discharge page Print Language: [place] Care Plan Goals: Left renal pelvic stone, follow-up with Urology Hematuria resolved Stop hydrochlorothiazide since likely cause acute kidney injury and hypokalemia Cognitive impairment follow-up with primary care physician Started on new medication Norvasc 5 mg daily for high blood pressure in place of hydrochlorothiazide Lobular mass in liver incidental finding on CT abdomen CA 19 9 and alpha fetoprotein pending outpatient follow-up with primary care physician if needed to pursue further evaluation and treatment. Health Concerns: Continue all medications as before Plan of Treatment: Follow-up with primary care physician call for appointment in 1-2 weeks Assessment: As above
--- NOTE | 2024-08-10 13:07 | P.PNIM_ITS ---
Subjective Subjective Date of Service: 08/10/24 Interval History: Offers no acute complaints, no acute events overnight, no hematuria complaining of intermittent left flank pain worse with movement of left hip, tolerating diet no fevers, no chills. Review of Systems All other system reviewed and negative Physical Exam 2 Vital Signs: Vital Signs: Last Vital Signs Temp 98.5 F 08/10/24 08:00 Pulse 73 08/10/24 08:00 Resp 16 08/10/24 08:00 BP 152/70 H 08/10/24 08:00 Pulse Ox 98 08/10/24 08:00 O2 Del Method Room Air 08/10/24 08:00 BMI result Body Mass Index 20.4 Const: Other: General resting comfortably in no acute distress. Neck no JVD. CVS regular rate rhythm, Respiratory lungs clear to auscultation, no respiratory distress, no wheeze, no rhonchi. Gastrointestinal abdomen soft, non tender, bowel sounds audible, no guarding , no rigidity. Extremities no edema. Good range of motion left hip. Neuro non focal Skin no rash Poor insight No CVA tenderness Objective Data Active Medications Acetaminophen (Acetaminophen 325 Mg Tablet) 650 mg PO Q6H PRN PRN Reason: Pain, Mild (Pain Scale 1-3), fever or headache Last Admin: 08/10/24 08:33 Dose: 650 mg Documented By: KHAI Amlodipine Besylate (Amlodipine Besylate 2.5 Mg Tablet) 2.5 mg PO DAILY [facility]; Protocol Last Admin: 08/10/24 08:26 Dose: 2.5 mg Documented By: KHAI Atorvastatin Calcium (Atorvastatin Calcium 20 Mg Tablet) 20 mg PO DAILY [facility] Last Admin: 08/10/24 08:26 Dose: 20 mg Documented By: KHAI Magnesium Hydroxide (Milk Of Magnesia 30 Ml Oral.Susp) 30 ml PO DAILY PRN PRN Reason: Constipation Melatonin (Melatonin 3 Mg Tablet) 6 mg PO BEDTIME PRN PRN Reason: Insomnia Last Admin: 08/09/24 20:36 Dose: 6 mg Documented By: AWA Metoprolol Succinate (Metoprolol Succinate Er 50 Mg Tab.Er.24h) 50 mg PO DAILY [facility]; Protocol Last Admin: 08/10/24 08:26 Dose: 50 mg Documented By: KHAI Ondansetron HCl (Ondansetron Hcl 4 Mg/2 Ml Vial) 4 mg IVPUSH Q8H PRN PRN Reason: Nausea and Vomiting Sodium Chloride (0.9 % Sodium Chloride Flush 3 Ml Syringe) 3 ml IVFLUSH QSHIFT LISA Last Admin: 08/10/24 08:31 Dose: Not Given Documented By: KHAI Non-Admin Reason: No Access Labs 08/09/24 10:34 08/10/24 11:49 Labs: Laboratory Results - last 24 hr 08/10/24 05:57 Anion Gap 13 Estim Creat Clear Calc 39.3 Estimated GFR > 60 Random Glucose 103 Calcium 10.3 H D Assessment and Plan (1) Renal hematuria: Status: Acute (2) Kidney stone on left side: Status: Acute (3) Hypokalemia: Status: Acute (4) Acute kidney injury: Status: Acute Plan Okay however precedes the 6 will all studies good 88-year-old female with pertinent history of paroxysmal atrial fibrillation on Eliquis, cognitive dysfunction, osteoarthritis of left knee, essential hypertension, mixed hyperlipidemia, irritable bowel syndrome vitamin-D deficiency who presents to the emergency department for evaluation of abnormal labs. #. Acute kidney injury: Likely prerenal Creatinine improved from 2 to 1.1, last GFR 55 in March of 2022 , recommend to avoid nephrotoxins and hypotension , hydrochlorothiazide discontinued. #. Left sided nephrolithiasis: Presented with left flank pain and hematuria. CT abdomen showed left renal pelvic stone measuring 1.8 x 0.8x1.3 cm, no hydronephrosis, hydroureter for right-sided calculi noted, no perinephric stranding Case discussed with Urology, no recurrent hematuria history of chronic 3+ blood in urine, UA showed no bacteria, outpatient urology follow-up Left-sided flank pain likely radiation from left hip and knee osteoarthritis . Leukocytosis trending down likely reactive No recurrent hematuria #. Hypokalemia: Likely due to hydrochlorothiazide, Repleted and normalized. #. Elevated troponin: Troponin 56.1, repeat 64.9, No chest pain, no acute EKG changes Likely due to CARLO , follow clinical course. # incidental finding of 5.4 cm lobular mass in the region of caudate lobe of liver, patient denies nausea vomiting or abdominal pain, MRI is recommended for further evaluation due to renal impairment will hold MRI CA19-9 and alpha-fetoprotein, pending case discussed with daughter she wishes to proceed with testing, outpatient MRI study and GI eval per pcp. #. Hypertension: Noted to have elevated blood pressure continue metoprolol and Norvasc 2.5 mg will increase dose of Norvasc for BP remains elevated hydrochlorothiazide discontinued due to CARLO and hypokalemia #. Cognitive dysfunction: Maintain sleep-wake cycle, mild pleasant confusion, lives alone PT recommend rehab #. Mixed hyperlipidemia: Continue Lipitor #. Paroxysmal atrial fibrillation: Continue metoprolol, resume Eliquis # mild hypercalcemia likely due to dehydration improved with by mouth fluids will avoid Tums DVT prophylaxis: Mechanical device/eliquis Full code. Patient will require continued inpatient hospitalization for management of acute kidney injury, and follow-up on hematuria and safe disposition good all. Quality Stroke Does the patient have a stroke diagnosis?: No VTE Prior VTE?: No VTE Risk Level:: Medical - moderate - high VTE Device Contraindication: N/A - Device Ordered VTE Drug Contraindication: Treatment Not Indicated
[2024-08-10 15:25] VITALS: BP 145/65; PULSE 65; RESP 16; TEMP 36.8; O2SAT 97
[2024-08-10 19:55] VITALS: BP 140/62; PULSE 61; RESP 18; TEMP 36.2; O2SAT 96
[2024-08-10] MEDS: Melatonin 3 MG TABLET 6 MG PO (21:00)
[2024-08-10] MEDS: Apixaban 2.5 MG TABLET PO (21:01)
[2024-08-11 03:22] VITALS: BP 163/68; PULSE 57; RESP 16; TEMP 36.7; O2SAT 98
[2024-08-11 07:31] VITALS: BP 172/73; PULSE 67; RESP 18; TEMP 36.6; O2SAT 92
[2024-08-11] MEDS: Metoprolol Succinate ER 50 MG TAB.ER.24H PO (08:07)
[2024-08-11] MEDS: Apixaban 2.5 MG TABLET PO ×2 (08:08→20:39)
[2024-08-11] MEDS: amLODIPine Besylate 5 MG TABLET PO (08:08)
[2024-08-11] MEDS: Atorvastatin Calcium 20 MG TABLET PO (08:08)
[2024-08-11 10:21] VITALS: BP 128/70
--- NOTE | 2024-08-11 11:46 | HO.PM.IMPN ---
Subjective Subjective Date of Service: 08/11/24 Interval History: Offers no acute complaints, wants to be discharged home, no acute events overnight. Review of Systems All other system reviewed and negative, limited history due to underlying dementia. Physical Exam Vital Signs: Vital Signs: Last Vital Signs Temp 97.9 F 08/11/24 07:31 Pulse 67 08/11/24 07:31 Resp 18 08/11/24 07:31 BP 128/70 08/11/24 10:21 Pulse Ox 92 08/11/24 07:31 O2 Del Method Room Air 08/11/24 07:31 BMI result Body Mass Index 20.4 Const: Other: General resting comfortably in no acute distress. Neck no JVD. CVS regular rate rhythm, Respiratory lungs clear to auscultation, no respiratory distress, no wheeze, no rhonchi. Gastrointestinal abdomen soft, non tender, bowel sounds audible, no guarding , no rigidity. Extremities no edema. Good range of motion left hip. Neuro non focal Skin no rash Poor insight No CVA tenderness Objective Data Active Medications Acetaminophen (Acetaminophen 325 Mg Tablet) 650 mg PO Q6H PRN PRN Reason: Pain, Mild (Pain Scale 1-3), fever or headache Last Admin: 08/10/24 21:00 Dose: 650 mg Documented By: AWA Comments: per pt request Amlodipine Besylate (Amlodipine Besylate 5 Mg Tablet) 5 mg PO DAILY [facility]; Protocol Last Admin: 08/11/24 08:08 Dose: 5 mg Documented By: KHAI Apixaban (Apixaban 2.5 Mg Tablet) 2.5 mg PO BID [facility] Last Admin: 08/11/24 08:08 Dose: 2.5 mg Documented By: KHAI Atorvastatin Calcium (Atorvastatin Calcium 20 Mg Tablet) 20 mg PO DAILY [facility] Last Admin: 08/11/24 08:08 Dose: 20 mg Documented By: KHAI Magnesium Hydroxide (Milk Of Magnesia 30 Ml Oral.Susp) 30 ml PO DAILY PRN PRN Reason: Constipation Melatonin (Melatonin 3 Mg Tablet) 6 mg PO BEDTIME PRN PRN Reason: Insomnia Last Admin: 08/10/24 21:00 Dose: 6 mg Documented By: AWA Metoprolol Succinate (Metoprolol Succinate Er 50 Mg Tab.Er.24h) 50 mg PO DAILY [facility]; Protocol Last Admin: 08/11/24 08:07 Dose: 50 mg Documented By: KHAI Ondansetron HCl (Ondansetron Hcl 4 Mg/2 Ml Vial) 4 mg IVPUSH Q8H PRN PRN Reason: Nausea and Vomiting Sodium Chloride (0.9 % Sodium Chloride Flush 3 Ml Syringe) 3 ml IVFLUSH QSHIFT [facility] Last Admin: 08/11/24 08:09 Dose: Not Given Documented By: KHAI Non-Admin Reason: No Access Labs 08/09/24 10:34 08/10/24 11:49 Assessment and Plan (1) Renal hematuria: Status: Acute (2) Kidney stone on left side: Status: Acute (3) Hypokalemia: Status: Acute (4) Acute kidney injury: Status: Acute Plan Okay however precedes the 6 will all studies good 88-year-old female with pertinent history of paroxysmal atrial fibrillation on Eliquis, cognitive dysfunction, osteoarthritis of left knee, essential hypertension, mixed hyperlipidemia, irritable bowel syndrome vitamin-D deficiency who presents to the emergency department for evaluation of abnormal labs. #. Acute kidney injury: Likely prerenal Creatinine improved from 2 to 1.1, last GFR 55 in March of 2022 , recommend to avoid nephrotoxins and hypotension , hydrochlorothiazide discontinued. #. Left sided nephrolithiasis: Presented with left flank pain and hematuria. CT abdomen showed left renal pelvic stone measuring 1.8 x 0.8x1.3 cm, no hydronephrosis, hydroureter for right-sided calculi noted, no perinephric stranding Seen by Urology, no recurrent hematuria noted, history of chronic 3+ blood in urine, UA showed no bacteria, outpatient urology follow-up Left- flank pain likely radiation from left hip and knee osteoarthritis . Leukocytosis trending down likely reactive No recurrent hematuria #. Hypokalemia: Likely due to hydrochlorothiazide, Repleted and normalized. #. Elevated troponin: Troponin 56.1, repeat 64.9, No chest pain, no acute EKG changes Likely due to CARLO , follow clinical course. # incidental finding of 5.4 cm lobular mass in the region of caudate lobe of liver, patient denies nausea vomiting or abdominal pain, MRI is recommended for further evaluation due to renal impairment will hold MRI CA19-9 and alpha-fetoprotein, pending case discussed with daughter she wishes to proceed with testing, outpatient MRI study and GI eval per pcp. #. Hypertension: Noted to have elevated blood pressure continue metoprolol and increase Norvasc to 5 mg daily hydrochlorothiazide discontinued due to CARLO and hypokalemia #. Cognitive dysfunction: Maintain sleep-wake cycle, mild pleasant confusion, lives alone PT recommend rehab #. Mixed hyperlipidemia: Continue Lipitor #. Paroxysmal atrial fibrillation: Continue metoprolol, and Eliquis # mild hypercalcemia likely due to dehydration improved with by mouth fluids will avoid Tums DVT prophylaxis: Mechanical device/eliquis Full code. Patient will require continued inpatient hospitalization for management of acute kidney injury, and follow-up on hematuria and safe disposition good all. Quality Stroke Does the patient have a stroke diagnosis?: No VTE Prior VTE?: No VTE Risk Level:: Medical - moderate - high VTE Device Contraindication: N/A - Device Ordered VTE Drug Contraindication: Treatment Not Indicated
[2024-08-11] MEDS: Acetaminophen 325 MG TABLET 650 MG PO ×2 (12:55→20:39)
[2024-08-11 15:34] VITALS: BP 134/64; PULSE 67; RESP 16; TEMP 36.3; O2SAT 95
[2024-08-11 20:00] VITALS: BP 136/63; PULSE 61; RESP 17; TEMP 36.5; O2SAT 96
[2024-08-11] MEDS: Melatonin 3 MG TABLET 6 MG PO (20:39)
[2024-08-12 04:00] VITALS: BP 134/60; PULSE 55; RESP 18; TEMP 36.3; O2SAT 94
[2024-08-12 07:24] VITALS: BP 152/67; PULSE 56; RESP 16; TEMP 36.3; O2SAT 96
[2024-08-12] MEDS: Metoprolol Succinate ER 50 MG TAB.ER.24H PO (08:52)
[2024-08-12] MEDS: Apixaban 2.5 MG TABLET PO ×2 (08:52→20:05)
[2024-08-12] MEDS: Atorvastatin Calcium 20 MG TABLET PO (08:52)
[2024-08-12] MEDS: amLODIPine Besylate 5 MG TABLET PO (08:52)
--- NOTE | 2024-08-12 10:44 | MHC.CM.PN ---
Addendum entered by Emelia Morales 08/12/24 15:23: DP: PT WILL DC HOME 08/13 WITH NEW [facility] AND DAUGHTER'S SUPPORT. [facility] UPDATED, DAUGHTER/HCP WILL TRANSPORT AT 11 AM. [facility] NOTIFIED. Addendum entered by Emelia Morales 08/12/24 14:33: PER DAMION GARCIA, [employer] INTENDS TO DENY BUT OFFERING A PEER TO PEER APPEAL. MD NOTIFIED AND PROVIDED WITH APPEAL INFORMATION. CM WILL CONTINUE TO FOLLOW FOR DECISION. DAUGHTER RODY UPDATED. Original Note: EMR REVIEWED AND PER MD ROUNDS, PT IS MEDICALLY CLEARED FOR DC TO STR. CM CONTINUES TO AWAIT INSURANCE AUTH FROM DAMION GARCIA. MD AWARE. CM MET WITH PT WHO IS AGREEABLE TO STR BEFORE HOME. CM WILL CONTINUE TO OFFER SUPPORT AND ENCOURAGEMENT.
[2024-08-12] MEDS: Acetaminophen 325 MG TABLET 650 MG PO ×2 (11:31→18:23)
[2024-08-12 15:13] VITALS: BP 125/56; PULSE 57; RESP 18; TEMP 36.9; O2SAT 96
--- NOTE | 2024-08-12 15:23 | P.PNIM_ITS ---
Subjective Subjective Date of Service: 08/12/24 Interval History: Offers no acute complaints, mildly confused, no behavioral issues tolerating diet, no acute events overnight. Review of Systems All other system reviewed and are negative Physical Exam 2 Vital Signs: Vital Signs: Last Vital Signs Temp 98.5 F 08/12/24 15:13 Pulse 57 08/12/24 15:13 Resp 18 08/12/24 15:13 BP 125/56 L 08/12/24 15:13 Pulse Ox 96 08/12/24 15:13 O2 Del Method Room Air 08/12/24 15:13 BMI result Body Mass Index 20.4 Const: Other: General resting comfortably in no acute distress. Neck no JVD. CVS regular rate rhythm, Respiratory lungs clear to auscultation, no respiratory distress, no wheeze, no rhonchi. Gastrointestinal abdomen soft, non tender, bowel sounds audible, no guarding , no rigidity. Extremities no edema. Good range of motion left hip. Neuro non focal Skin no rash Poor insight No CVA tenderness Objective Data Active Medications Acetaminophen (Acetaminophen 325 Mg Tablet) 650 mg PO Q6H PRN PRN Reason: Pain, Mild (Pain Scale 1-3), fever or headache Last Admin: 08/12/24 11:31 Dose: 650 mg Documented By: MAGDALENA Amlodipine Besylate (Amlodipine Besylate 5 Mg Tablet) 5 mg PO DAILY [facility]; Protocol Last Admin: 08/12/24 08:52 Dose: 5 mg Documented By: MAGDALENA Apixaban (Apixaban 2.5 Mg Tablet) 2.5 mg PO BID [facility] Last Admin: 08/12/24 08:52 Dose: 2.5 mg Documented By: MAGDALENA Atorvastatin Calcium (Atorvastatin Calcium 20 Mg Tablet) 20 mg PO DAILY [facility] Last Admin: 08/12/24 08:52 Dose: 20 mg Documented By: MAGDALENA Magnesium Hydroxide (Milk Of Magnesia 30 Ml Oral.Susp) 30 ml PO DAILY PRN PRN Reason: Constipation Melatonin (Melatonin 3 Mg Tablet) 6 mg PO BEDTIME PRN PRN Reason: Insomnia Last Admin: 08/11/24 20:39 Dose: 6 mg Documented By: RILEY Metoprolol Succinate (Metoprolol Succinate Er 50 Mg Tab.Er.24h) 50 mg PO DAILY [facility]; Protocol Last Admin: 10/28/24 08:52 Dose: 50 mg Documented By: MAGDALENA Ondansetron HCl (Ondansetron Hcl 4 Mg/2 Ml Vial) 4 mg IVPUSH Q8H PRN PRN Reason: Nausea and Vomiting Sodium Chloride (0.9 % Sodium Chloride Flush 3 Ml Syringe) 3 ml IVFLUSH QSHIFT LISA Last Admin: 08/12/24 13:24 Dose: Not Given Documented By: MAGDALENA Non-Admin Reason: No Access Labs 08/09/24 10:34 08/10/24 11:49 Assessment and Plan (1) Renal hematuria: Status: Acute (2) Hypokalemia: Status: Acute (3) Acute kidney injury: Status: Acute Plan Okay however precedes the 6 will all studies good 88-year-old female with pertinent history of paroxysmal atrial fibrillation on Eliquis, cognitive dysfunction, osteoarthritis of left knee, essential hypertension, mixed hyperlipidemia, irritable bowel syndrome vitamin-D deficiency who presents to the emergency department for evaluation of abnormal labs. #. Acute kidney injury: Likely prerenal Creatinine improved from 2 to 1.1, last GFR 55 in March of 2022 , recommend to avoid nephrotoxins and hypotension , hydrochlorothiazide discontinued. #. Left sided nephrolithiasis: Presented with left flank pain and hematuria. CT abdomen showed left renal pelvic stone measuring 1.8 x 0.8x1.3 cm, no hydronephrosis, hydroureter for right-sided calculi noted, no perinephric stranding Seen by Urology, no recurrent hematuria noted, history of chronic 3+ blood in urine, UA showed no bacteria, outpatient urology follow-up Left- flank pain likely radiation from left hip and knee osteoarthritis . Leukocytosis trending down likely reactive No recurrent hematuria #. Hypokalemia: Likely due to hydrochlorothiazide, Repleted and normalized. #. Elevated troponin: Troponin 56.1, repeat 64.9, No chest pain, no acute EKG changes Likely due to CARLO , follow clinical course. # incidental finding of 5.4 cm lobular mass in the region of caudate lobe of liver, patient denies nausea vomiting or abdominal pain, MRI is recommended for further evaluation due to renal impairment will hold MRI CA19-9 and alpha-fetoprotein, pending case discussed with daughter she wishes to proceed with testing, outpatient MRI study and GI eval per pcp. #. Hypertension: Stable BP continue metoprolol and Norvasc to 5 mg daily hydrochlorothiazide discontinued due to CARLO and hypokalemia #. Cognitive dysfunction: Maintain sleep-wake cycle, mild pleasant confusion, lives alone /recommend outpatient Neurology PCP follow-up, #. Mixed hyperlipidemia: Continue Lipitor #. Paroxysmal atrial fibrillation: Continue metoprolol, and Eliquis # mild hypercalcemia likely due to dehydration improved with by mouth fluids will avoid Tums DVT prophylaxis: Mechanical device/eliquis Full code. Patient will require continued inpatient hospitalization for management of acute kidney injury, and follow-up on hematuria and safe disposition . Cm arranging for safe disposition Quality Stroke Does the patient have a stroke diagnosis?: No VTE Prior VTE?: No VTE Risk Level:: Medical - moderate - high VTE Device Contraindication: N/A - Device Ordered VTE Drug Contraindication: Treatment Not Indicated
[2024-08-12 19:09] VITALS: BP 172/79; PULSE 72; RESP 17; TEMP 36.4; O2SAT 98
[2024-08-12] MEDS: Melatonin 3 MG TABLET 6 MG PO (20:05)
[2024-08-13 02:27] VITALS: BP 151/68; PULSE 70; RESP 18; TEMP 36.2; O2SAT 97
[2024-08-13 07:36] VITALS: BP 140/63; PULSE 60; RESP 16; TEMP 36.2; O2SAT 96
[2024-08-13] MEDS: Atorvastatin Calcium 20 MG TABLET PO (07:48)
[2024-08-13 07:49] VITALS: PULSE 64
[2024-08-13] MEDS: amLODIPine Besylate 5 MG TABLET PO (07:50)
[2024-08-13] MEDS: Metoprolol Succinate ER 50 MG TAB.ER.24H PO (07:50)
[2024-08-13] MEDS: Apixaban 2.5 MG TABLET PO (07:50)
[2024-08-13] MEDS: Acetaminophen 325 MG TABLET 650 MG PO (09:45)
--- NOTE | 2024-08-13 11:34 | MHC.CM.PN ---
Pt is medically cleared for discharge home with new [facility] services, pts daughter will transport her home.
--- NOTE | 2024-08-13 12:12 | P.F2F_ITS ---
Service Date Service Date: 08/13/24 Encounter Date of encounter: 08/13/24 Reasons for Services Signs and symptoms assessed: Hematuria/left flank pain and cognitive impairment Reason for prison: medication management and GI/ assessment Reason for physical therapy: home safety and mobility Homebound: Leaving the home is medically contraindicated at this time without the asist of a device and/or another person due th the listed conditions above and below. Reason homebound: weakness related to hospital stay Certification: Based on the above findings, I certify that this patient is confined to the home and needs intermittent prison care, physical therapy and/or speech therapy, or continues to need occupational therapy. The patient is under my care, and I have initiated the establishment of the plan of care. The patient will be followed by a physician who will periodically review the plan of care. Time Spent With Patient Time: Total time managing care of this patient today ____ minutes.
[2024-08-14 11:48] LABS: Alpha Fetoprotein 5.1 ng/mL
[2024-08-15 09:34] LABS: Carbohydrate Antigen 19-9 3 U/mL (<34)
== END 2024-08-13 11:51 | disposition home health service (06) | DRG 641 ==
LOC: HO.ED 22:26 → HO.EDOVER 08-08 03:52 → HO.S3 08-08 07:41
PROVIDERS: Physician Assistant Medical; Admitting Provider Student in an Organized Health Care Education/Training Program; Emergency Provider Internal Medicine; PCP Internal Medicine; Visit Provider Hospitalist
DX: E87.6 Hypokalemia (principal); N17.9 Acute kidney failure, unspecified; T50.2X5A Adverse effect of carbonic-anhydrase inhibitors, benzothiadiazides and other diuretics, initial encounter; E86.0 Dehydration; I48.0 Paroxysmal atrial fibrillation; E78.2 Mixed hyperlipidemia; E55.9 Vitamin D deficiency, unspecified; N20.0 Calculus of kidney; E83.52 Hypercalcemia; R16.0 Hepatomegaly, not elsewhere classified; I10 Essential (primary) hypertension; F03.90 Unspecified dementia, unspecified severity, without behavioral disturbance, psychotic disturbance, mood disturbance, and anxiety; R31.0 Gross hematuria; Z79.01 Long term (current) use of anticoagulants; Z79.899 Other long term (current) drug therapy
CPT/HCPCS: 36415; 74176; 80048; 80053; 80076; 81001; 82105; 83690; 83735; 84132; 84484; 85025; 85027; 86301; 87086; 93005; 97116; 97162; 99285; C1758; J0360; J3475; J3480

== ENCOUNTER → 2024-08-07 21:07 | Outpatient (BNV) | payer MEDICARE, MEDICAID, SELFPAY | PROVIDERS: Admitting Provider Student in an Organized Health Care Education/Training Program; Emergency Provider Internal Medicine; PCP Internal Medicine; Visit Provider Internal Medicine Cardiovascular Disease | DX: R94.31 Abnormal electrocardiogram [ECG] [EKG] (principal) | CPT/HCPCS: 93010 ==

== ENCOUNTER → 2024-08-08 03:49 | Outpatient (BNV) | payer MEDICARE, MEDICAID, SELFPAY | PROVIDERS: Admitting Provider Student in an Organized Health Care Education/Training Program; Emergency Provider Internal Medicine; PCP Internal Medicine; Visit Provider Urology | DX: N20.0 Calculus of kidney (principal); N39.0 Urinary tract infection, site not specified; N17.9 Acute kidney failure, unspecified | CPT/HCPCS: 99222 ==

== ENCOUNTER → 2024-08-08 03:49 | Outpatient (BNV) | payer MEDICARE, MEDICAID, SELFPAY | PROVIDERS: Admitting Provider Student in an Organized Health Care Education/Training Program; Emergency Provider Internal Medicine; PCP Internal Medicine; Visit Provider Student in an Organized Health Care Education/Training Program | DX: R31.9 Hematuria, unspecified (principal); E87.6 Hypokalemia; N17.9 Acute kidney failure, unspecified | CPT/HCPCS: 99223; 99232; 99233; 99239; 99499; G0180 ==

== ENCOUNTER 2024-08-20 14:35 | Outpatient (AMB) | payer MEDICARE, MEDICAID, SELFPAY ==
[2024-08-20 14:40] VITALS: BP 172/110; PULSE 51; O2SAT 91; BMI 21.3
--- NOTE | 2024-08-20 14:40 | A.OFFPC_ITS ---
Vital Signs 08/20/24 14:40 Height 5 ft 4 in Weight 124 lb BMI 21.3 BP 172/110 H Blood Pressure Location Lt brachial Position Sitting Pulse 51 Pulse Source Pulse Oximeter Pulse Oximetry (%) 91 L Oxygen Delivery Method Room Air Intake Visit Reasons: [place] [facility] [place] abnormal labs Criminalist Required: No Allergies nitrofurantoin [From MACROBID] Allergy (Unknown, Verified 08/20/24 14:44) RASH/FEVER penicillamine Allergy (Unknown, Verified 08/20/24 14:44) rash Penicillins [PENICILLINS] Allergy (Unknown, Verified 08/20/24 14:44) RASH Tobacco use date assessed: 08/07/24 Last assessed Fall Risk: 08/20/24 Dental Screening Dental Screen Date: 08/07/24 [facility] TCM Information Date of Discharge 08/13/24 Discharged From [facility] HPI Comments History of Present Illness Details 88 y/o female patient who presents to [facility] clinic today for TCM. Accompanied by Daughter who provides history. Past medical history of paroxysmal atrial fibrillation on Eliquis, cognitive dysfunction, osteoarthritis of left knee, essential hypertension, mixed Hyperlipidemia, irritable bowel syndrome and vitamin-D deficiency. She [place] [facility] [place] to 08/13/24 due to Hypokalemia, Hematuria and Left Kidney stone. HCTZ was Dc'd since could be the cause of Low Potassium. She was started on Amlodipine 5 mg. She was told to f/u with Urology regarding Hematuria and renal calculi. Left OA; Pt has appointment for PT next week and will be following with Ortho then. Daughter requesting Influenza Vaccine for patient. PENDING SALE TO [facility] Medical History Acute kidney injury Hypokalemia Vitamin D deficiency Impaired fasting glucose Overweight (BMI 25.0-29.9) Female bladder prolapse Hematuria Irritable bowel syndrome (IBS) Mixed hyperlipidemia Benign essential hypertension IBS (irritable bowel syndrome) Surgical History History of colonoscopy History of cholecystectomy History of bilateral cataract extraction Family History Father No problems noted. Mother No problems noted. Sister Cancer Social History Household Members Other:: from [facility] Housing: [facility] Do you presently have visiting nurse or other home services: Yes (from [facility]) Alcohol intake: never Patient Tobacco Use Status: Never used Tobacco Tobacco use type: Cigarette e-Cigarette/Vaping Use: Never Used Second Hand Smoke Exposure: No Current occupational status: retired Cognitive needs: No Hearing needs: No Vision needs: No Questionnaire Thrive Questionnaire Date Thrive assessed: 08/07/24 STEPHANIE-7 AMB Questionnaire STEPHANIE-7 Date STEPHANIE - 7 assessed: 08/07/24 Source: Developed by Drs. Harinder Fernández, Erika Oden, Abdiel Jaramillo and colleagues, with an educational jaxson from [employer]. Review of Systems Const All systems reviewed & are unremarkable except as noted in HPI and below Physical exam (Primary Care) Vital Signs: Last Vital Signs Pulse 51 08/20/24 14:40 BP 172/110 H 08/20/24 14:40 Pulse Ox 91 L 08/20/24 14:40 Oxygen Delivery Method Room Air 08/20/24 14:40 BMI result Body Mass Index 21.3 Tobacco/Smoking Status: Tobacco use Status Tobacco use date assessed 08/07/24 08/20/24 14:40 Patient Tobacco Use Status Never used Tobacco 08/20/24 14:44 Tobacco use type Cigarette 08/20/24 14:44 e-Cigarette/Vaping Use Never Used 08/20/24 14:44 Thrive Assessment: Date of Thrive Assessment Date Thrive assessed 08/07/24 08/20/24 14:40 Const General: no acute distress Limitations: behavioral limitations Skin General skin exam: no rashes or lesions noted Neuro Other: She is Alert and cooperative. General: gait normal and moves all extremities Extrem Left lower extremity: knee (ROM limited due to pain) Details: tenderness Location: of the patella; no swelling Psych Speech and movement: Clear speech present Coding Level of Care Code TCM Mod MDM <= 7 Days Diagnoses Kidney stone on left side N20.0 Primary osteoarthritis of left knee M17.12 Hematuria, unspecified type R31.9 Hematuria type: unspecified type Time Spent (min) 20 Assessment & Plan Assessment & Plan (1) Kidney stone on left side: Code(s): N20.0 - Calculus of kidney Category: Medical Plan: Placed referral to Urology (2) Primary osteoarthritis of left knee: Code(s): M17.12 - Unilateral primary osteoarthritis, left knee Category: Medical Plan: Has an Appointment for PT and Ortho. (3) Hematuria: Code(s): R31.9 - Hematuria, unspecified Category: Medical Qualifiers: Hematuria type: unspecified type Qualified Code(s): R31.9 - Hematuria, unspecified Plan: Placed referral to Urology Orders: Referrals Urology Referral N20.0 - Calculus of kidney, R31.9 - Hematuria, unspecified
--- NOTE | 2024-08-20 14:40 | MHC.PC.OV ---
Vital Signs 08/20/24 14:40 Height 5 ft 4 in Blood Pressure Location Lt brachial Position Sitting Pulse Source Pulse Oximeter Oxygen Delivery Method Room Air Intake Visit Reasons: [facility] 08/13 abnormal labs It Help Desk Technician Required: No Accompanied by: Self / Same As Patient Allergies nitrofurantoin [From MACROBID] Allergy (Unknown, Verified 08/20/24 14:41) RASH/FEVER penicillamine Allergy (Unknown, Verified 08/20/24 14:41) rash Penicillins [PENICILLINS] Allergy (Unknown, Verified 08/20/24 14:41) RASH Tobacco use date assessed: 08/07/24 Last assessed Fall Risk: 08/20/24 Dental Screening Dental Screen Date: 08/20/24 [facility] Information Date of Discharge 08/14/24 Discharged From [facility] Medical History Acute kidney injury Hypokalemia Vitamin D deficiency Impaired fasting glucose Overweight (BMI 25.0-29.9) Female bladder prolapse Hematuria Irritable bowel syndrome (IBS) Mixed hyperlipidemia Benign essential hypertension IBS (irritable bowel syndrome) Surgical History History of colonoscopy History of cholecystectomy History of bilateral cataract extraction Family History Father No problems noted. Mother No problems noted. Sister Cancer Social History Household Members Other:: from [facility] Housing: Jail Do you presently have visiting nurse or other home services: Yes (from [facility]) Alcohol intake: never Patient Tobacco Use Status: Never used Tobacco Tobacco use type: Cigarette e-Cigarette/Vaping Use: Never Used Second Hand Smoke Exposure: No Current occupational status: retired Cognitive needs: No Hearing needs: No Vision needs: No Questionnaire Thrive Questionnaire Date Thrive assessed: 08/07/24 STEPHANIE-7 AMB Questionnaire STEPHANIE-7 Date STEPHANIE - 7 assessed: 08/07/24 Source: Developed by Drs. Harinder Fernández, Erika Oden, Abdiel Jaramillo and colleagues, with an educational jaxson from [employer]. Physical exam (Primary Care) Vital Signs: Oxygen Delivery Method Room Air 08/20/24 14:40 Tobacco/Smoking Status: Tobacco use Status Tobacco use date assessed 08/07/24 08/20/24 14:41 Patient Tobacco Use Status Never used Tobacco 08/20/24 14:41 Tobacco use type Cigarette 08/20/24 14:41 e-Cigarette/Vaping Use Never Used 08/20/24 14:41 Thrive Assessment: Date of Thrive Assessment Date Thrive assessed 08/07/24 08/20/24 14:41 Coding
== END 2024-08-20 15:50 | disposition home or self-care (01) ==
LOC: HO.HMCH 14:36
PROVIDERS: PCP Internal Medicine; Visit Provider Nurse Practitioner Family
DX: N20.0 Calculus of kidney (principal); M17.12 Unilateral primary osteoarthritis, left knee; R31.9 Hematuria, unspecified

== ENCOUNTER → 2024-08-20 14:35 | Outpatient (BNVA) | payer MEDICARE, MEDICAID, SELFPAY | PROVIDERS: PCP Internal Medicine; Visit Provider Nurse Practitioner Family | DX: N20.0 Calculus of kidney (principal); M17.12 Unilateral primary osteoarthritis, left knee; R31.9 Hematuria, unspecified | CPT/HCPCS: 99212 ==

== ENCOUNTER 2024-08-29 12:57 | Outpatient (AMB) | payer MEDICARE, MEDICAID, SELFPAY ==
--- NOTE | 2024-08-29 13:03 | A.OFFVIS_ITS ---
Intake Visit Reasons: New Pt - Left Hip & Knee Pain Intake Note: Cheryl is an 88 year old female who presents today as a new patient with complaints of left hip pain. Patient reports ongoing and increased left hip pain, that radiates to the left knee. Denies injury. Pain is felt all the time but worsened with ambulation or increased activity. She is taking Tylenol and Ibuprofen with little to no relief. PCP provided her with Tramadol. Allergies nitrofurantoin [From MACROBID] Allergy (Unknown, Verified 08/29/24 13:04) RASH/FEVER penicillamine Allergy (Unknown, Verified 08/29/24 13:04) rash Penicillins [PENICILLINS] Allergy (Unknown, Verified 08/29/24 13:04) RASH HPI HPI New Pt - Left Hip & Knee Pain: Details: Cheryl is an 88 year old female who presents today as a new patient with complaints of left hip pain. Patient reports ongoing and increased left hip pain, that radiates to the left knee. Denies injury. Pain is felt all the time but worsened with ambulation or increased activity. She is taking Tylenol and Ibuprofen with little to no relief. PCP provided her with Tramadol. [facility] Medical History Acute kidney injury Hypokalemia Vitamin D deficiency Impaired fasting glucose Overweight (BMI 25.0-29.9) Female bladder prolapse Hematuria Irritable bowel syndrome (IBS) Mixed hyperlipidemia Benign essential hypertension IBS (irritable bowel syndrome) Surgical History History of colonoscopy History of cholecystectomy History of bilateral cataract extraction Family History Father No problems noted. Mother No problems noted. Sister Cancer Social History Household Members Other:: from [facility] Housing: [facility] Do you presently have visiting nurse or other home services: Yes (from [facility]) Alcohol intake: never Patient Tobacco Use Status: Never used Tobacco Tobacco use type: Cigarette e-Cigarette/Vaping Use: Never Used Second Hand Smoke Exposure: No Current occupational status: retired Cognitive needs: No Hearing needs: No Vision needs: No Physical Exam Extrem Other: There is tenderness to palpation over the medial and lateral joint line. No pain with passive or active hip range of motion. Mild tenderness over the left greater trochanter and along the lateral aspect of the proximal femur and iliotibial band. Office Procedures Joint Inj/Aspir; Non-Pain Clin Joint Injection/Drain Details: Injected 1 mL of Decadron and 3 mL 1% lidocaine and 3 mL of 0.25% Marcaine. Site was prepped using aseptic technique. Patient tolerated the procedure well. Shoulders, Hips, Knees, Knee Large Joint Injection : Left Knee Coding Procedure code (CPT) selection complete Results Reviewed Results Reviewed: I personally reviewed relevant radiographs. Left hip radiographs are nl Left knee OA Assessment & Plan Assessment & Plan (1) Primary osteoarthritis of left knee: Code(s): M17.12 - Unilateral primary osteoarthritis, left knee Category: Medical Plan: I injected her left knee today. She has knee arthritis but also some dysfunction of the iliotibial band and I would recommend physical therapy. She is on issue that is this time. She should remain active and can see me in the future issues. Plan I injected her left knee today Coding Level of Care Code New Pt Level 4 (92063) Diagnoses Primary osteoarthritis of left knee M17.12 CPT Codes Shoulders, Hips, Knees, - Knee Large Joint Injection : Left Knee ([id number])
== END 2024-08-29 15:23 | disposition home or self-care (01) ==
PROVIDERS: PCP Internal Medicine; Visit Provider Orthopaedic Surgery
DX: M17.12 Unilateral primary osteoarthritis, left knee (principal)
CPT/HCPCS: 20610; 99203

== ENCOUNTER → 2024-08-29 12:57 | Outpatient (BNVA) | payer MEDICARE, MEDICAID, SELFPAY | PROVIDERS: PCP Internal Medicine; Visit Provider Orthopaedic Surgery | DX: M17.12 Unilateral primary osteoarthritis, left knee (principal) | CPT/HCPCS: 20610; 99202; J0665; J1100; J2003 ==

== ENCOUNTER 2024-09-19 16:32 | Outpatient (REF) | payer MEDICARE, MEDICAID, SELFPAY ==
[2024-09-19 16:46] LABS: Appearance Urine Turbid; Color Urine Dark Yellow; Glucose Urine UA Negative (Negative); Leukocyte Esterase Urine Moderate (2+) (Negative); Nitrite Urine Negative (Negative); Specific Gravity - Urine >= 1.030 (1.005-1.025); UMIC TRIGGER UA YES; Urine Blood Large (3+) (Negative); Urine Ketones Negative (Negative); Urine Protein 300 (3+) mg/dL (Neg-Trace)
[2024-09-19 17:01] LABS: Bacteria Urine 3+ (None Seen); Hyaline Casts Urine 0-2 /LPF (0-2); Squamous Epithelial Cell Urine >20 /HPF (0-2)
== END 2024-09-19 16:33 | disposition home or self-care (01) ==
LOC: HO.HVNA 16:32
PROVIDERS: Visit Provider Internal Medicine
DX: N20.0 Calculus of kidney (principal)
CPT/HCPCS: 81001

== ENCOUNTER 2024-10-02 18:35 | Observation (INO) | payer MEDICARE, MEDICAID, SELFPAY ==
--- NOTE | ~2024-10-02 | CT_ITS ---
EXAMINATION: CT ABDOMEN AND PELVIS WITH CONTRAST CLINICAL INFORMATION: Abdominal pain. Question diverticulitis. COMPARISON: CT dated 08/07/2024 TECHNIQUE: Multidetector volumetric images were obtained from the superior aspect of the liver through the pubic symphysis following administration 85 mL of Omnipaque 350 intravenous contrast. Sagittal and coronal reformatted images were obtained on the technologist's workstation. Oral contrast: No This CT examination was performed using dose optimization techniques as appropriate, variously including the following: *Automated exposure control *Adjustment of mA and/or kV according to patient size (this includes techniques or standardized protocols for targeted exams where dose is matched to indication/reason for exam; i.e. extremities or head) *Use of iterative reconstruction technique DLP: 495 mGy-cm FINDINGS: LUNG BASES: The visualized lung bases are unremarkable. Small left Bochdalek hernia. LIVER, GALLBLADDER, AND BILIARY TREE: At the central portion of hepatic segments 4A and 8 near the IVC, there is a lobular heterogeneously hypoattenuating hepatic lesion measuring 5.4 x 2.3 x 4.4 cm with internal calcifications and solid components. This is not appreciably changed in size from the prior study by my measurement. Liver is otherwise unremarkable. Mild intrahepatic ductal dilatation is likely due in part to prior cholecystectomy. No sites of biliary duct obstruction or identified. PANCREAS: Unremarkable. SPLEEN: Unremarkable. ADRENAL GLANDS: Unremarkable. KIDNEYS AND URETERS: As on the prior study, there is a 1.8 cm calculus in the left renal pelvis with surrounding urothelial thickening and peripelvic fat stranding. A separate 0.5 cm calculus is present within a lower pole calyx. No right-sided renal calculi. No hydronephrosis there is mild left renal cortical thinning, asymmetric as compared to the chondral side. Symmetric renal enhancement. A large 5.7 cm simple cyst is again present in the left upper renal pole. Multiple smaller cysts are identified and unchanged. No suspicious renal lesions. No recommended imaging follow-up. BLADDER: The bladder is not well seen as it is prolapsed inferiorly through the pelvic floor off the inferior border of the study. The imaged portion demonstrates wall thickening. GASTROINTESTINAL TRACT: Small hiatal hernia. There is a prominent 3.5 cm one diverticulum. Multiple dilated jejunal loops are evident within the central abdomen and left upper quadrant measuring up to 3.5 cm in diameter. There is a gradual transition in the caliber of the bowel loops to normal caliber at the level of the anterior mid abdomen, more suggestive of ileus than obstruction. There is severe diverticulosis in the sigmoid colon and more to moderate diverticulosis in the remainder of the colon. Appendix is normal. Trace intraperitoneal free fluid left pericolic gutter. A loop of small bowel descends through the pelvic floor along with the bladder. ABDOMINAL WALL: No hernias are identified aside from the aforementioned left Bochdalek hernia. LYMPH NODES: Normal. VASCULAR: Marked atherosclerotic calcification of the abdominal aorta and iliac arteries. No aneurysmal dilatation. PELVIC VISCERA: There is a large defect in the pelvic floor with prolapse of the anterior and middle compartments including the bladder and vagina. These extend off of the inferior border the study and are not well assessed. No adnexal lesions. OSSEOUS STRUCTURES: Marked scoliotic curvature of the lumbar spine with multilevel degenerative disc disease. No acute fractures. Mild osteoarthritis in the hips and more pronounced osteoarthritis of the SI joints. CT/CT abdomen pelvis w IV con IMPRESSION: Dilated jejunal loops with slow tapering to normal caliber small bowel, most suggestive of ileus. The cause of the soleus is uncertain, but could be infectious or inflammatory in nature. No focal transition point to indicate obstruction. Marked colonic diverticulosis without evidence of acute diverticulitis. Marked pelvic organ prolapse involving both the anterior and middle compartments (bladder/urethra and vagina). Of note, a loop of small bowel does descend into the region of prolapse. Complex cystic/solid hepatic lesion measuring 5.4 cm in greatest diameter, not appreciably changed as compared to the recent study. An MRI of the abdomen with and without contrast is advised for further assessment if warranted clinically. Small hiatal hernia. Electronically signed by: Jerad Salazar MD 10/02/2024 10:34 PM [facility]
[2024-10-02 18:51] VITALS: BP 180/82; PULSE 78; O2SAT 98
[2024-10-02 19:01] VITALS: BP 145/74; PULSE 70; RESP 16; TEMP 36.3; O2SAT 98; BMI 22.4
[2024-10-02] MEDS: ondansetron HCL 4 MG/2 ML VIAL IVPUSH (19:17)
[2024-10-02] MEDS: 0.9 % Sodium Chloride 500 ML IV (19:17)
[2024-10-02 19:24] LABS: MANUAL DIFF FLAG NO
[2024-10-02 19:36] LABS: Basophils Percent Auto 0.3 % (0-2); Eosinophils Percent Auto 0.1 % (0-4); Hemoglobin 12.8 g/dl (12.0-16.0); Imm Gran Abs Auto 0.13 X10*3/uL (0.00-0.03); Imm Gran Pct Auto 1.3 % (0.0-0.4); Lymphocytes Absolute Auto 0.9 X10*3/uL (1.2-4.9); Lymphocytes Percent Auto 8.6 % (20-40); Mean Corpuscular HGB Conc 33.7 g/dl (31.0-35.0); Mean Corpuscular Hemoglobin 32.9 pg (27.0-33.0); Mean Corpuscular Volume 97.7 fL (80.0-98.0); Mean Platelet Volume 10.2 fL (9.4-12.3); Monocytes Absolute Auto 0.4 X10*3/uL (0.1-1.2); Monocytes Percent Auto 4.3 % (2-11); Neutrophils Absolute Auto 8.4 x10*3/uL (2.0-8.3); Neutrophils Percent Auto 85.4 % (45-73); Platelet Count 314 X10*3/uL (160-400); Red Blood Count 3.89 X10*6/uL (4.20-5.50); White Blood Count 9.9 X10*3/uL (4.8-10.8)
[2024-10-02 19:46] LABS: Alanine Aminotransferase 14 U/L (0-31); Albumin Level 3.8 g/dL (3.5-5.0); Alkaline Phosphatase 65 U/L (39-117); Anion Gap 14 (12-20); Aspartate Amino Transferase 59 U/L (5-31); Blood Urea Nitrogen 18 mg/dL (9-16); Calcium 10.1 mg/dL (8.4-10.2); Carbon Dioxide 24 mmol/L (22-29); Chloride 108 mmol/L (96-108); Creatinine Clr Calc Pharmacy 37.6; Estimated Glomerular Filt Rate 58; Glucose Random 119 mg/dL (60-115); Lipase 37 U/L (8-78); Magnesium 1.5 mg/dL (1.6-2.6); Potassium 4.2 mmol/L (3.3-5.1); Sodium 142 mmol/L (135-145); Total Protein 6.6 g/dL (6.5-8.0)
[2024-10-02] MEDS: iohexoL 350 MG/ML 100 ML INFUS..BTL 85 ML IV (20:09)
[2024-10-02] MEDS: Acetaminophen 1,000 MG/100 ML PIGGYBACK 400 MG IV (21:22)
[2024-10-02 22:37] VITALS: BP 147/65; PULSE 74; RESP 20; TEMP 36.7; O2SAT 96
--- NOTE | 2024-10-02 22:39 | ED_ITS ---
HPI - Abdominal Pain General Chief Complaint: Nausea/Vomiting/Diarrhea Stated Complaint: VOMITING DIARRHEA Time Seen by Provider: 10/02/24 18:55 Source: patient Limitations: other (Cognitive impairment) History of Present Illness ED Provider: Chery jacinto PA-C HPI narrative: 88-year-old female with history of paroxysmal AFib on apixaban, hypertension, frequent UTIs, irritable bowel syndrome, mild cognitive impairment, coming in with the abdominal pain , nausea, vomiting and diarrhea that started today. Pain generalized to left side of the abdomen, unable to describe the nature of her discomfort. Patient denies use of recent antibiotics, hospitalizations or travel. Patient does not know if she has had sick contacts with same symptoms, she has not had any cough or cold symptoms, she has been afebrile at home. Related Data Home Medications ?Medication ?Instructions ?Recorded ?Confirmed acetaminophen 325 mg tablet 650 mg PO Q6H PRN Pain 08/08/24 08/14/24 dicyclomine 10 mg capsule 20 mg PO QID PRN Abdominal Pain 08/08/24 08/14/24 Previous Rx's ?Medication ?Instructions ?Recorded atorvastatin 20 mg tablet 20 mg PO DAILY #90 tabs 11/27/23 cholecalciferol (vitamin D3) 50 50 mcg PO DAILY 90 days #90 caps 04/12/24 mcg (2,000 unit) capsule amlodipine 5 mg tablet 5 mg PO DAILY 90 days #90 tabs 08/26/24 apixaban 2.5 mg tablet (Eliquis) 2.5 mg PO BID 90 days #180 caps 08/26/24 fenofibrate nanocrystallized 145 145 mg PO DAILY 90 days #90 caps 08/26/24 mg tablet metoprolol succinate 50 mg 50 mg PO DAILY 90 days #90 caps 08/26/24 tablet,extended release 24 hr tramadol 50 mg tablet 50 mg PO TID PRN pain #15 tabs 09/11/24 ciprofloxacin HCl 250 mg tablet 250 mg PO BID 5 days #10 tabs 09/26/24 Allergies Allergy/AdvReac Type Severity Reaction Status Date / Time nitrofurantoin Allergy Unknown RASH/FEVER Verified 10/02/24 19:04 [From MACROBID] penicillamine Allergy Unknown rash Verified 10/02/24 19:04 Penicillins [PENICILLINS] Allergy Unknown RASH Verified 10/02/24 19:04 Review of Systems Review of Systems Yes all other systems are reviewed and are negative Constitutional: Denies fatigue and Denies fever(s) Cardiovascular: Denies chest pain and Denies dyspnea Respiratory: Denies cough and Denies dyspnea Gastrointestinal: Reports abdominal pain, Reports diarrhea and Reports nausea Endocrine: Denies fatigue PMFSH Past Medical History Attestation statement: The following information was validated with the patient. Medical History Acute kidney injury Hypokalemia Vitamin D deficiency Impaired fasting glucose Overweight (BMI 25.0-29.9) Female bladder prolapse Hematuria Irritable bowel syndrome (IBS) Mixed hyperlipidemia Benign essential hypertension IBS (irritable bowel syndrome) Surgical History History of colonoscopy History of cholecystectomy History of bilateral cataract extraction Family History Family History Father No problems noted. Mother No problems noted. Sister Cancer Social History Social History Household Members Other:: [place] [facility] [place] [facility] Do you presently have visiting nurse or other home services: Yes ([place] [facility] [place] Alcohol intake: never Patient Tobacco Use Status: Never used Tobacco Tobacco use type: Cigarette Smoked in Last 30 Days: No e-Cigarette/Vaping Use: Never Used Second Hand Smoke Exposure: No Use of substances other than those prescribed or required for medical reasons: No Advance Directives: No Advance Directives Information Provided: No Do you have a plan to hurt others: No Plan Current occupational status: retired Cognitive needs: No Hearing needs: No Vision needs: No Physical Exam ED Vital Signs: Vital Signs - 24 hr 10/02/24 19:01 10/02/24 22:37 Temperature 97.4 F 98.0 F Pulse Rate 70 74 Respiratory Rate 16 20 Blood Pressure 145/74 H 147/65 H Pulse Oximetry 98 96 Oxygen Delivery Method Room Air Room Air High Flow Nasal Cannula BMI result Body Mass Index 22.4 Const Other: Alert, overall well-appearing Orientation/consciousness: oriented to person and oriented to place Resp Other: Nonlabored respirations Cardio Other: Normal peripheral perfusion GI Other: Abdomen is soft, nondistended obese, mild to moderate tenderness left mid abdomen with minimal involuntary guarding Skin Other: Warm dry no rash Neuro Other: Patient is slightly confused, she is forgetful, she can not give me the exact date General: oriented to person, oriented to place, no focal motor deficits and CN's II-XI intact bilaterally Psych Other: Calm cooperative Course Consultations Consultation #1: Reaching out to Dr. Lawrence now this is nothing surgical, which is what I expected, I will admit to medicine. Time: 22:42 Medical Decision Making Medical Decision Making MDM Narrative: 88-year-old female with history of paroxysmal AFib on apixaban, hypertension, frequent UTIs, irritable bowel syndrome, mild cognitive impairment, coming in with the abdominal pain , nausea, vomiting and diarrhea that started today. Pain generalized to left side of the abdomen, unable to describe the nature of her discomfort. Patient denies use of recent antibiotics, hospitalizations or travel. Patient does not know if she has had sick contacts with same symptoms, she has not had any cough or cold symptoms, she has been afebrile at home. Problem: Age, cognitive impairment, anticoagulated History: Per patient I have considered the following differential diagnoses: Viral gastroenteritis, diverticulitis, C diff, traveler's diarrhea Plan: Patient has no risk factors for C diff, she has not traveled recently. This is likely viral gastro given such illness has been prevalent within the community. Given somewhat focal abdominal pain, and she is not a reliable historian with her cognitive impairment, I am obtaining a CT scan. We will be giving IV fluid, Zofran and Tylenol for her pain. I have independently reviewed the following tests: Labs: No leukocytosis, not anemic, no electrolyte abnormality other than subtly low magnesium at 1.5, we will give 2 g of magnesium IV. CT abdomen and pelvis: CT/CT abdomen pelvis w IV con IMPRESSION: Dilated jejunal loops with slow tapering to normal caliber small bowel, most suggestive of ileus. The cause of the soleus is uncertain, but could be infectious or inflammatory in nature. No focal transition point to indicate obstruction. Marked colonic diverticulosis without evidence of acute diverticulitis. Marked pelvic organ prolapse involving both the anterior and middle compartments (bladder/urethra and vagina). Of note, a loop of small bowel does descend into the region of prolapse. Complex cystic/solid hepatic lesion measuring 5.4 cm in greatest diameter, not appreciably changed as compared to the recent study. An MRI of the abdomen with and without contrast is advised for further assessment if warranted clinically. Small hiatal hernia. Electronically signed by: Jerad Salazar MD 10/02/2024 10:34 PM [facility] Reaching out to the surgical service for consult Lab Data 10/02/24 19:10 10/02/24 19:10 Labs: Lab Results 10/02/24 Range/Units 19:10 WBC 9.9 (4.8-10.8) X10*3/uL RBC 3.89 L (4.20-5.50) X10*6/uL Hgb 12.8 (12.0-16.0) g/dl Hct 38.0 (37.0-47.0) % MCV 97.7 (80.0-98.0) fL MCH 32.9 (27.0-33.0) pg MCHC 33.7 (31.0-35.0) g/dl RDW 17.0 H (11.0-16.0) % Plt Count 314 (160-400) X10*3/uL MPV 10.2 (9.4-12.3) fL Immature Gran % (Auto) 1.3 H (0.0-0.4) % Neut % (Auto) 85.4 H (45-73) % Lymph % (Auto) 8.6 L (20-40) % [place] % (Auto) 4.3 (2-11) % Eos % (Auto) 0.1 (0-4) % Baso % (Auto) 0.3 (0-2) % Lymph # (Auto) 0.9 L (1.2-4.9) X10*3/uL [place] # (Auto) 0.4 (0.1-1.2) X10*3/uL Eos # (Auto) 0.0 (0.0-0.4) X10*3/uL Baso # (Auto) 0.0 (0.0-0.2) X10*3/uL Abs Immat Gran (auto) 0.13 H (0.00-0.03) X10*3/uL Absolute Neuts (auto) 8.4 H (2.0-8.3) x10*3/uL Absolute Nucleated RBC 0.000 (0.0-0.012) X10*3/uL Nucleated RBC % (auto) 0.0 (0.0-0.2) /100WBC Sodium 142 (135-145) mmol/L Potassium 4.2 (3.3-5.1) mmol/L Chloride 108 (96-108) mmol/L Carbon Dioxide 24 (22-29) mmol/L Anion Gap 14 (12-20) BUN 18 H (9-16) mg/dL Creatinine 0.91 (0.5-1.4) mg/dL Estim Creat Clear Calc 37.6 Estimated GFR 58 Random Glucose 119 H (60-115) mg/dL Calcium 10.1 (8.4-10.2) mg/dL Magnesium 1.5 L (1.6-2.6) mg/dL Total Bilirubin 1.0 (0.0-1.0) mg/dL AST 59 H (5-31) U/L ALT 14 (0-31) U/L Alkaline Phosphatase 65 (39-117) U/L Total Protein 6.6 (6.5-8.0) g/dL Albumin 3.8 (3.5-5.0) g/dL Lipase 37 (8-78) U/L Medications Administered Generic Name Dose Route Start Last Admin Trade Name Freq PRN Reason Stop Dose Admin Magnesium Sulfate 2 gm in 50 mls @ 25 mls/hr 10/02/24 22:41 10/02/24 23:17 Magnesium Sulfate/H2o IV 10/03/24 00:40 25 mls/hr ONCE ONE Administration Discontinued Medications Generic Name Dose Route Start Last Admin Trade Name Freq PRN Reason Stop Dose Admin Sodium Chloride 500 mls @ 500 mls/hr 10/02/24 18:58 10/02/24 20:04 Ns IV 10/02/24 19:57 Infused .Q1H ONE Infusion Acetaminophen 1,000 mg in 100 mls @ 400 mls/hr 10/02/24 21:17 10/02/24 23:24 Ofirmev IV 10/02/24 21:31 Infused ONCE ONE Infusion Iohexol 85 ml 10/02/24 20:08 10/02/24 20:09 Iohexol 350 Mg/Ml 100 Ml Infus..Btl IV 10/02/24 20:09 85 ml ONCE ONE Administration Ondansetron HCl 4 mg 10/02/24 18:57 10/02/24 19:17 Ondansetron Hcl 4 Mg/2 Ml Vial IVPUSH 10/02/24 18:58 4 mg ONCE ONE Administration Discharge Plan Discharge Clinical Impression: Ileus Patient Disposition: Admitted As Inpatient Prescriptions: No Action cholecalciferol (vitamin D3) 50 mcg (2,000 unit) capsule 50 mcg PO DAILY 90 Days Qty: 90 3RF Eliquis 2.5 mg tablet 2.5 mg PO BID 90 Days Qty: 180 0RF metoprolol succinate 50 mg tablet extended release 24 hr 50 mg PO DAILY 90 Days Qty: 90 1RF fenofibrate nanocrystallized 145 mg tablet 145 mg PO DAILY 90 Days Qty: 90 1RF amlodipine 5 mg tablet 5 mg PO DAILY 90 Days Qty: 90 0RF Protocol: Hold for SBP< HOLD for SBP < : 90 tramadol 50 mg tablet 50 mg PO TID PRN (Reason: pain) Qty: 15 0RF ciprofloxacin HCl 250 mg tablet 250 mg PO BID 5 Days Qty: 10 0RF acetaminophen 325 mg Tablet 650 mg PO Q6H PRN (Reason: Pain) dicyclomine 10 mg capsule 20 mg PO QID PRN (Reason: Abdominal Pain) atorvastatin 20 mg tablet 20 mg PO DAILY Qty: 90 3RF Print Language: Kiswahili
--- NOTE | 2024-10-02 23:03 | MHC.EDTECH ---
Patient transferred to hospital bed for pending admission. patient able to stand and pivot into bed. patient into position of comfort and call daniels in reach. no other needs
[2024-10-02] MEDS: Magnesium Sulfate/H2O 2 GM/50 ML PIGGYBACK IV (23:17)
--- NOTE | 2024-10-03 00:19 | PC.NURSE ---
Patient up to bathroom, SBA to get there. Urine sample obtained.
--- NOTE | 2024-10-03 00:40 | MHC.EDTECH ---
patient walked to bathroom with steady gait, urine sample attempted but patient could not void at this time. will attempt urine sample next time patient is awake
--- NOTE | 2024-10-03 00:59 | PM.IMHP ---
History of Present Illness Date of Service: 10/03/24 Chief Complaint: Vomiting This is a 88-year-old female with pertinent history of paroxysmal atrial fibrillation on Eliquis, cognitive dysfunction, osteoarthritis of left knee, essential hypertension, mixed hyperlipidemia, irritable bowel syndrome vitamin-D deficiency who presents to the emergency department for evaluation of vomiting. Patient states she had 5 episodes of nonbloody emesis on the day of presentation. She has been having nausea throughout the day. Also associated with lower diffuse abdominal pain which is mild, intermittent, nonradiating and relieved with Tylenol. Had 1 episode of formed stool on the day of presentation. No diarrhea. No fever, chills, chest pain, palpitations, shortness of breath, changes in urinary habits. In the emergency department, imaging with dilated jejunal loops suggestive of ileus. General surgery was consulted who requested admission to medicine team Review of Systems Constitutional: Constitutional: Reports fatigue Cardiovascular: Cardiovascular: Reports no additional cardiovascular complaints Respiratory: Respiratory: Reports no additional respiratory complaints Gastrointestinal: Gastrointestinal: Reports abdominal pain, Reports nausea and Reports vomiting Genitourinary: Genitourinary: Reports no additional female genitourinary complaints Endocrine: Endocrine: Reports fatigue [facility] Medical History Acute kidney injury Hypokalemia Vitamin D deficiency Impaired fasting glucose Overweight (BMI 25.0-29.9) Female bladder prolapse Hematuria Irritable bowel syndrome (IBS) Mixed hyperlipidemia Benign essential hypertension IBS (irritable bowel syndrome) Family History Father No problems noted. Mother No problems noted. Sister Cancer Surgical History History of colonoscopy History of cholecystectomy History of bilateral cataract extraction Social History Household Members Other:: from [facility] Housing: Longterm Do you presently have visiting nurse or other home services: Yes (from [facility]) Alcohol intake: never Patient Tobacco Use Status: Never used Tobacco Tobacco use type: Cigarette Smoked in Last 30 Days: No e-Cigarette/Vaping Use: Never Used Second Hand Smoke Exposure: No Use of substances other than those prescribed or required for medical reasons: No Advance Directives: No Advance Directives Information Provided: No Do you have a plan to hurt others: No Plan Current occupational status: retired Cognitive needs: No Hearing needs: No Vision needs: No Meds Allergies Allergy/AdvReac Type Severity Reaction Status Date / Time nitrofurantoin Allergy Unknown RASH/FEVER Verified 10/02/24 19:04 [From MACROBID] penicillamine Allergy Unknown rash Verified 10/02/24 19:04 Penicillins [PENICILLINS] Allergy Unknown RASH Verified 10/02/24 19:04 Home Medications ?Medication ?Instructions ?Recorded ?Confirmed ?Last Taken ?Type acetaminophen 325 mg tablet 650 mg PO Q6H PRN Pain 08/08/24 08/14/24 Unknown History dicyclomine 10 mg capsule 20 mg PO QID PRN Abdominal Pain 08/08/24 08/14/24 08/05/24 History Physical Exam Vital Signs and Narrative: Vital Signs: Last Vital Signs Temp 98.0 F 10/02/24 22:37 Pulse 74 10/02/24 22:37 Resp 20 10/02/24 22:37 BP 147/65 H 10/02/24 22:37 Pulse Ox 96 10/02/24 22:37 O2 Del Method Room Air, High Fl ow Nasal Cannula 10/02/24 22:37 BMI result Body Mass Index 22.4 Elderly female lying in bed in no distress Neck supple, no JVD Regular rate and rhythm, S1-S2 heard Regular breath sounds bilaterally, no wheezing or crackles appreciated Abdomen soft nontender, no guarding, no rigidity Patient is awake, alert and oriented x3 ; no focal motor deficit Psych: Normal mood No pedal edema Results Labs 10/02/24 19:10 10/02/24 19:10 Labs: Laboratory Results - last 24 hr 10/02/24 19:10 MCV 97.7 MCH 32.9 MCHC 33.7 RDW 17.0 H Plt Count 314 MPV 10.2 Immature Gran % (Auto) 1.3 H Neut % (Auto) 85.4 H Lymph % (Auto) 8.6 L [place] % (Auto) 4.3 Eos % (Auto) 0.1 Baso % (Auto) 0.3 Lymph # (Auto) 0.9 L [place] # (Auto) 0.4 Eos # (Auto) 0.0 Baso # (Auto) 0.0 Abs Immat Gran (auto) 0.13 H Absolute Neuts (auto) 8.4 H Absolute Nucleated RBC 0.000 Nucleated RBC % (auto) 0.0 Anion Gap 14 Estim Creat Clear Calc 37.6 Estimated GFR 58 Random Glucose 119 H Calcium 10.1 Magnesium 1.5 L Total Bilirubin 1.0 AST 59 H ALT 14 Alkaline Phosphatase 65 Total Protein 6.6 Albumin 3.8 Lipase 37 Imaging Radiologist's Impressions: Impressions Abdomen/Pelvis CT 10/02/24 20:09 IMPRESSION: Dilated jejunal loops with slow tapering to normal caliber small bowel, most suggestive of ileus. The cause of the soleus is uncertain, but could be infectious or inflammatory in nature. No focal transition point to indicate obstruction. Marked colonic diverticulosis without evidence of acute diverticulitis. Marked pelvic organ prolapse involving both the anterior and middle compartments (bladder/urethra and vagina). Of note, a loop of small bowel does descend into the region of prolapse. Complex cystic/solid hepatic lesion measuring 5.4 cm in greatest diameter, not appreciably changed as compared to the recent study. An MRI of the abdomen with and without contrast is advised for further assessment if warranted clinically. Small hiatal hernia. Electronically signed by: Jerad Salazar MD 10/02/2024 10:34 PM [facility] Assessment and Plan (1) Intractable vomiting with nausea: Status: Acute Plan This is a 88-year-old female with pertinent history of paroxysmal atrial fibrillation on Eliquis, cognitive dysfunction, osteoarthritis of left knee, essential hypertension, mixed hyperlipidemia, irritable bowel syndrome vitamin-D deficiency who presents to the emergency department for evaluation of vomiting. #. Intractable vomiting with abdominal pain: Will admit patient for observation with conservative treatment. Imaging with dilated jejunal loops suggestive of ileus. Had 1 episode of formed stool prior to coming to the ER as per the patient. Clear liquid diet and advance as tolerated. General surgery consulted from the ER, appreciate assistance #. Hypertension: On beta-angel and amlodipine #. Cognitive dysfunction: Maintain sleep-wake cycle #. Mixed hyperlipidemia: On high-intensity statin #. Paroxysmal atrial fibrillation: On Eliquis Med rec pending DVT prophylaxis: Eliquis Full code. Discussed with patient at bedside Quality Stroke Does the patient have a stroke diagnosis?: No VTE Prior VTE?: No VTE Risk Level:: Medical - moderate - high VTE Device Contraindication: Treatment Not Indicated VTE Drug Contraindication: N/A - Med Ordered
--- NOTE | 2024-10-03 04:10 | PC.NURSE ---
patient ripped out IV and will not let staff near her to start another one. notified.
[2024-10-03 06:03] LABS: MANUAL DIFF FLAG NO
[2024-10-03 06:05] LABS: Basophils Percent Auto 0.4 % (0-2); Eosinophils Percent Auto 0.2 % (0-4); Hematocrit 34.3 % (37.0-47.0); Hemoglobin 11.1 g/dl (12.0-16.0); Imm Gran Abs Auto 0.03 X10*3/uL (0.00-0.03); Imm Gran Pct Auto 0.4 % (0.0-0.4); Lymphocytes Absolute Auto 1.4 X10*3/uL (1.2-4.9); Mean Corpuscular HGB Conc 32.4 g/dl (31.0-35.0); Mean Corpuscular Hemoglobin 32.1 pg (27.0-33.0); Mean Corpuscular Volume 99.1 fL (80.0-98.0); Mean Platelet Volume 10.2 fL (9.4-12.3); Monocytes Absolute Auto 0.6 X10*3/uL (0.1-1.2); Monocytes Percent Auto 7.1 % (2-11); Neutrophils Absolute Auto 6.3 x10*3/uL (2.0-8.3); Neutrophils Percent Auto 74.9 % (45-73); Platelet Count 263 X10*3/uL (160-400); Red Blood Count 3.46 X10*6/uL (4.20-5.50); Red Cell Distribution Width 17.1 % (11.0-16.0); White Blood Count 8.4 X10*3/uL (4.8-10.8)
[2024-10-03 06:14] VITALS: BP 131/60; PULSE 61; RESP 17; O2SAT 95
[2024-10-03 06:22] LABS: Anion Gap 13 (12-20); Blood Urea Nitrogen 16 mg/dL (9-16); Calcium 9.1 mg/dL (8.4-10.2); Carbon Dioxide 23 mmol/L (22-29); Chloride 110 mmol/L (96-108); Creatinine Clr Calc Pharmacy 41.7; Estimated Glomerular Filt Rate > 60; Glucose Random 102 mg/dL (60-115); Potassium 3.5 mmol/L (3.3-5.1); Sodium 142 mmol/L (135-145)
--- NOTE | 2024-10-03 07:30 | PC.NURSE ---
Resumed care of pt at 0700. Pt up in bed, ambulated to the bathroom one assist. A/ox2- person/placed, respirations even and unlabored, no signs of distress. Pt up in bed eating breakfast, no IV in place d/t pt removing IV herself per night RN. Pt refuses second IV line placement. Plan of care ongoing, call daniels within reach, all needs met at this time.
[2024-10-03 07:46] LABS: Magnesium 1.9 mg/dL (1.6-2.6)
[2024-10-03 08:33] VITALS: BP 162/74; PULSE 72; RESP 16; TEMP 36.4; O2SAT 95
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
[2024-10-03 10:25] VITALS: BMI 21.0
--- NOTE | 2024-10-03 10:59 | PHA.MEDREC ---
Addendum entered by Varun Paz [facility] 10/03/24 11:42: Med rec checked by [facility] Original Note: Pharmacy Consult ? Medication Reconciliation Pharmacy has completed the medication reconciliation. Tried to speak to patent to confirm med list, however she seemed very confused on what medications she takes. Patient kept trying to give me all her insurance cards to look for her address. Called patient daughter to confirm meds. Daughter was able to confirm all patents medications. Daughter states patient is no longer taking Dicylomine 20 mg. Daughter was a little concerned because she states patient should be taking Amlodipine 5 mg and Hydrochlorothiazide 12.5 mg, however she doesn't think patient is actually taking, Cipro 250 mg bid was last filled 09/26/24 for 5 days, daughter stated patient has 5 tablets left. Look like patient only took 2 and 1/2 days of treatment.
[2024-10-03 12:57] VITALS: BP 173/75; PULSE 85
[2024-10-03] MEDS: Metoprolol Succinate ER 50 MG TAB.ER.24H PO (12:57)
--- NOTE | 2024-10-03 13:45 | P.DS_ITS ---
DS: Providers Provider Date of Service: 10/03/24 Date of admission: 10/03/24 00:57 Date of discharge: 10/03/24 Primary care physician: Darci Mendenhall MD Consults: 10/03/24 01:03 Consult to General Surgery Routine Consulting Provider: [facility] General Surgeons Reason for consultation: ?ileus Attending physician on discharge: Basilio Ferreira Discharging clinician: Diana Willis DS: Diagnosis Discharge Diagnosis (1) Vomiting: Status: Acute DS: Summary Hospital Course Hospital Course: From H&P on the day of discharge This is a 88-year-old female with pertinent history of paroxysmal atrial fibrillation on Eliquis, cognitive dysfunction, osteoarthritis of left knee, essential hypertension, mixed hyperlipidemia, irrit able bowel syndrome vitamin-D deficiency who presents to the emergency department for evaluation of vomiting. Patient states she had 5 episodes of nonbloody emesis on the day of presentation. She has been having nausea throughout the day. Also associated with lower diffuse abdominal pain which is mild, intermittent, nonradiating and relieved with Tylenol. Had 1 episode of formed stool on the day of presentation. No diarrhea. No fever, chills, chest pain, palpitations, shortness of breath, changes in urinary habits. In the emergency department, imaging with dilated jejunal loops suggestive of ileus. General surgery was consulted who requested admission to medicine team Intractable vomiting with abdominal pain: Imaging with dilated jejunal loops suggestive of ileus. She was admitted and see in consultation by surgery, no surgical intervention required, recommended to advance diet and discharge. abdominal exam remained benign, abdominal pain resolved. She was able to tolerate a regular diet and had a large BM. She is eager to be discharged home. Her daughter was called and case was discussed, daughter is in agreement with discharge home. Time Attestation Discharge Coordination Time (in mins): 35 Quality: Safe Use of Opioids Does Pt have an Active Cancer Diagnosis on the Problem List?: No Quality: Stroke Does the patient have a stroke diagnosis?: No Physical Exam Vital Signs: Vital Signs: Last Vital Signs Temp 97.5 F 10/03/24 08:33 Pulse 85 10/03/24 12:57 Resp 16 10/03/24 08:33 BP 173/75 H 10/03/24 12:57 Pulse Ox 95 10/03/24 08:33 O2 Del Method Room Air 10/03/24 08:33 BMI result Body Mass Index 21.0 Const: General: cooperative, comfortable, no acute distress, alert and awake Nutritional Appearance: average body habitus Orientation/consciousness: patient oriented x3 Resp: Effort & Inspection: normal respiratory effort, able to speak in complete sentences, no respiratory distress and no use of accessory muscles Cardio: Rate: regular rate GI: Inspection: No distended Palpation (GI): Soft to palpation and nontender Neuro: General: patient oriented x3, moves all extremities and CN's II-XI intact bilaterally DS: Data Data Completed and Pending Labs on day of discharge: Laboratory Results - last 24 hr 10/02/24 10/03/24 19:10 05:36 WBC 9.9 8.4 RBC 3.89 L 3.46 L Hgb 12.8 11.1 L Hct 38.0 34.3 L MCV 97.7 99.1 H MCH 32.9 32.1 MCHC 33.7 32.4 RDW 17.0 H 17.1 H Plt Count 314 263 MPV 10.2 10.2 Immature Gran % (Auto) 1.3 H 0.4 Neut % (Auto) 85.4 H 74.9 H Lymph % (Auto) 8.6 L 17.0 L [place] % (Auto) 4.3 7.1 Eos % (Auto) 0.1 0.2 Baso % (Auto) 0.3 0.4 Lymph # (Auto) 0.9 L 1.4 [place] # (Auto) 0.4 0.6 Eos # (Auto) 0.0 0.0 Baso # (Auto) 0.0 0.0 Abs Immat Gran (auto) 0.13 H 0.03 Absolute Neuts (auto) 8.4 H 6.3 Absolute Nucleated RBC 0.000 0.000 Nucleated RBC % (auto) 0.0 0.0 Sodium 142 142 Potassium 4.2 3.5 Chloride 108 110 H Carbon Dioxide 24 23 Anion Gap 14 13 BUN 18 H 16 Creatinine 0.91 0.82 Estim Creat Clear Calc 37.6 41.7 Estimated GFR 58 > 60 Random Glucose 119 H 102 Calcium 10.1 9.1 D Magnesium 1.5 L 1.9 Total Bilirubin 1.0 AST 59 H ALT 14 Alkaline Phosphatase 65 Total Protein 6.6 Albumin 3.8 Lipase 37 Discharge Plan Discharge Anticipated Discharge Date/Time: 10/03/24 14:13 Patient Disposition: Home Health Service Discharge Diagnosis: ileus/n/v Referrals: Lucita DELVALLE [Outside] Darci Mendenhall MD [Primary Care Provider] - 1 Week Discharge Medications: New amlodipine 5 mg tablet 5 mg PO DAILY 90 Days Qty: 90 0RF Continued cholecalciferol (vitamin D3) 50 mcg (2,000 unit) capsule 50 mcg PO DAILY 90 Days Qty: 90 3RF Eliquis 2.5 mg tablet 2.5 mg PO BID 90 Days Qty: 180 0RF metoprolol succinate 50 mg tablet extended release 24 hr 50 mg PO DAILY 90 Days Qty: 90 1RF fenofibrate nanocrystallized 145 mg tablet 145 mg PO DAILY 90 Days Qty: 90 1RF acetaminophen 325 mg Tablet 650 mg PO Q6H PRN (Reason: Pain) ciprofloxacin HCl 250 mg tablet 250 mg PO BID atorvastatin 20 mg tablet 20 mg PO DAILY Qty: 90 3RF Discontinued amlodipine 5 mg tablet 5 mg PO DAILY 90 Days Qty: 90 0RF Protocol: Hold for SBP< HOLD for SBP < : 90 hydrochlorothiazide 12.5 mg tablet 12.5 mg PO DAILY Discharge Orders: Discharge Order (Routine); Ordered 10/03/24 Ordered By: Diana Willis Activity on Discharge: As tolerated Stand Alone Forms: Patient Portal Discharge page Print Language: Wolof Care Plan Goals: see below Health Concerns: Ileus resolved Take all medications including blood pressure medication as prescribed Plan of Treatment: Call to schedule follow-up appointment with PCP as needed Assessment: see discharge summary
[2024-10-03 14:45] VITALS: BP 143/64; PULSE 73
--- NOTE | 2024-10-03 15:10 | MHC.CM.PN ---
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
[2024-10-03 15:17] VITALS: BP 114/64; PULSE 70; RESP 18; TEMP 36.3; O2SAT 99
[2024-10-03] MEDS: Acetaminophen 325 MG TABLET 650 MG PO (15:24)
== END 2024-10-03 18:08 | disposition home health service (06) ==
LOC: HO.ED 23:48 → HO.EDOVER 10-03 01:08 → HO.S3 10-03 07:31
PROVIDERS: Physician Assistant Medical; Admitting Provider Student in an Organized Health Care Education/Training Program; Emergency Provider Emergency Medicine Emergency Medical Services; PCP Internal Medicine; Visit Provider Physician Assistant Medical
DX: K56.7 Ileus, unspecified (principal); R11.2 Nausea with vomiting, unspecified; I48.0 Paroxysmal atrial fibrillation; R10.9 Unspecified abdominal pain; G31.84 Mild cognitive impairment of uncertain or unknown etiology; I10 Essential (primary) hypertension; R19.7 Diarrhea, unspecified; E78.5 Hyperlipidemia, unspecified; K58.9 Irritable bowel syndrome, unspecified; Z79.01 Long term (current) use of anticoagulants; Z87.440 Personal history of urinary (tract) infections
CPT/HCPCS: 36415; 74177; 80048; 80053; 83690; 83735; 85025; 96361; 96365; 96366; 96367; 96375; 99221; 99285; J0131; J2405; J3475; Q9967

== ENCOUNTER → 2024-10-02 19:16 | Outpatient (BNV) | payer MEDICARE, MEDICAID, SELFPAY | PROVIDERS: Emergency Provider Emergency Medicine Emergency Medical Services; Visit Provider Student in an Organized Health Care Education/Training Program | DX: R11.10 Vomiting, unspecified (principal) | CPT/HCPCS: 99235; 99499 ==

== ENCOUNTER → 2024-10-03 00:57 | Outpatient (BNV) | payer MEDICARE, MEDICAID, SELFPAY | PROVIDERS: Admitting Provider Student in an Organized Health Care Education/Training Program; Emergency Provider Emergency Medicine Emergency Medical Services; PCP Internal Medicine; Visit Provider Surgery | DX: R11.10 Vomiting, unspecified (principal) | CPT/HCPCS: 99222 ==

== ENCOUNTER 2024-11-07 13:14 | Outpatient (AMB) | payer MEDICARE, MEDICAID, SELFPAY ==
--- NOTE | 2024-11-07 13:15 | MHC.OFFVIS ---
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 Accompanied by: Daughter Allergies aspirin Allergy (Mild, Verified 11/19/24 08:54) Unknown ibuprofen [From Advil] Allergy (Mild, Verified 11/19/24 08:54) Unknown naproxen [From Aleve] Allergy (Mild, Verified 11/19/24 08:54) Unknown nitrofurantoin [From MACROBID] Allergy (Unknown, Verified 11/19/24 08:54) RASH/FEVER penicillamine Allergy (Unknown, Verified 11/19/24 08:54) rash Penicillins [PENICILLINS] Allergy (Unknown, Verified 11/19/24 08:54) RASH HPI Comments Details: 11/07/2024--Cheryl was initially evaluated on 08/08/24, she was an inpatient at [facility] [place], admitted due to worsening kidney function. Urology was called due to hematuria, left flank pain and left nephrolithiasis. Pertinent history of paroxysmal atrial fibrillation on Eliquis, cognitive dysfunction, osteoarthritis of left knee, essential hypertension, mixed hyperlipidemia. I have discussed treatment options to include left ESWL. Discussed risks to include but not limited to, blood in the urine, bruising to the skin, kidney hematoma, possible need for another procedure if a stone fragment obstructs the ureter while passing, possible need to repeat procedure if stone is not completely fragmented. The patient is on Eliquis and would need medical clearance prior. CT imaging also notes liver mass I will refer to GI. CTAP--08/07/24 and 10/02/2024--1.8 cm calculus in the left renal pelvis, 0.5 cm calculus is present within a lower pole calyx. No right-sided renal calculi. No hydronephrosis, there is mild left renal cortical thinning, [facility] Medical History (Updated 12/06/24 @ 11:42 by Shanel Mcdonald MD) History of colonic diverticulitis Atrial fibrillation Cataract Anxiety disorder Vulvar cyst Renal cysts, acquired, bilateral Uterine prolapse Vomiting Acute kidney injury Hypokalemia Vitamin D deficiency Impaired fasting glucose Overweight (BMI 25.0-29.9) Female bladder prolapse Hematuria Irritable bowel syndrome (IBS) Mixed hyperlipidemia Benign essential hypertension IBS (irritable bowel syndrome) Surgical History History of colonoscopy History of cholecystectomy History of bilateral cataract extraction Family History Father No problems noted. Mother No problems noted. Sister Cancer Social History (Updated 11/19/24 @ 08:54 by Tsering Nicole Noris) Household Members: None Household Members Other:: from [facility] Housing: Apartment Do you presently have visiting nurse or other home services: No Alcohol intake: never Patient Tobacco Use Status: Former Tobacco user Tobacco use type: Cigarette e-Cigarette/Vaping Use: Never Used Second Hand Smoke Exposure: No service: No Current occupational status: retired Cognitive needs: No Hearing needs: No Vision needs: No Review of Systems Const All systems reviewed & are unremarkable except as noted in HPI and below Reports no additional complaints Eyes Reports no additional complaints ENT Reports no additional complaints Card Reports no additional complaints Resp Reports no additional complaints GI Reports no additional complaints Reports as per HPI Musc Reports no additional complaints Skin/Breast Reports system reviewed and no additional complaints, except as documented Neuro Reports no additional complaints Psych Reports no additional complaints Endo Reports no additional complaints Ganga/Lymph Reports no additional complaints Aller/Immun Reports no additional complaints Office Procedures Post Void Residual Post Residual Void Post Void Residual (PVR): 0 [id number] Void Residual by ultrasound Results Reviewed Results Reviewed: Date of Service: 10/02/24 CT ABDOMEN AND PELVIS WITH CONTRAST CLINICAL INFORMATION: Abdominal pain. Question diverticulitis. COMPARISON: CT dated 08/07/2024 TECHNIQUE: Multidetector volumetric images were obtained from the superior aspect of the liver through the pubic symphysis following administration 85 mL of Omnipaque 350 intravenous contrast. Sagittal and coronal reformatted images were obtained on the technologist's workstation. Oral contrast: No This CT examination was performed using dose optimization techniques as appropriate, variously including the following: *Automated exposure control *Adjustment of mA and/or kV according to patient size (this includes techniques or standardized protocols for targeted exams where dose is matched to indication/reason for exam; i.e. extremities or head) *Use of iterative reconstruction technique DLP: 495 mGy-cm FINDINGS: LUNG BASES: The visualized lung bases are unremarkable. Small left Bochdalek hernia. LIVER, GALLBLADDER, AND BILIARY TREE: At the central portion of hepatic segments 4A and 8 near the IVC, there is a lobular heterogeneously hypoattenuating hepatic lesion measuring 5.4 x 2.3 x 4.4 cm with internal calcifications and solid components. This is not appreciably changed in size from the prior study by my measurement. Liver is otherwise unremarkable. Mild intrahepatic ductal dilatation is likely due in part to prior cholecystectomy. No sites of biliary duct obstruction or identified. PANCREAS: Unremarkable. SPLEEN: Unremarkable. ADRENAL GLANDS: Unremarkable. KIDNEYS AND URETERS: As on the prior study, there is a 1.8 cm calculus in the left renal pelvis with surrounding urothelial thickening and peripelvic fat stranding. A separate 0.5 cm calculus is present within a lower pole calyx. No right-sided renal calculi. No hydronephrosis there is mild left renal cortical thinning, asymmetric as compared to the chondral side. Symmetric renal enhancement. A large 5.7 cm simple cyst is again present in the left upper renal pole. Multiple smaller cysts are identified and unchanged. No suspicious renal lesions. No recommended imaging follow-up. BLADDER: The bladder is not well seen as it is prolapsed inferiorly through the pelvic floor off the inferior border of the study. The imaged portion demonstrates wall thickening. GASTROINTESTINAL TRACT: Small hiatal hernia. There is a prominent 3.5 cm one diverticulum. Multiple dilated jejunal loops are evident within the central abdomen and left upper quadrant measuring up to 3.5 cm in diameter. There is a gradual transition in the caliber of the bowel loops to normal caliber at the level of the anterior mid abdomen, more suggestive of ileus than obstruction. There is severe diverticulosis in the sigmoid colon and more to moderate diverticulosis in the remainder of the colon. Appendix is normal. Trace intraperitoneal free fluid left pericolic gutter. A loop of small bowel descends through the pelvic floor along with the bladder. ABDOMINAL WALL: No hernias are identified aside from the aforementioned left Bochdalek hernia. LYMPH NODES: Normal. VASCULAR: Marked atherosclerotic calcification of the abdominal aorta and iliac arteries. No aneurysmal dilatation. PELVIC VISCERA: There is a large defect in the pelvic floor with prolapse of the anterior and middle compartments including the bladder and vagina. These extend off of the inferior border the study and are not well assessed. No adnexal lesions. OSSEOUS STRUCTURES: Marked scoliotic curvature of the lumbar spine with multilevel degenerative disc disease. No acute fractures. Mild osteoarthritis in the hips and more pronounced osteoarthritis of the SI joints. IMPRESSION: Dilated jejunal loops with slow tapering to normal caliber small bowel, most suggestive of ileus. The cause of the soleus is uncertain, but could be infectious or inflammatory in nature. No focal transition point to indicate obstruction. Marked colonic diverticulosis without evidence of acute diverticulitis. Marked pelvic organ prolapse involving both the anterior and middle compartments (bladder/urethra and vagina). Of note, a loop of small bowel does descend into the region of prolapse. Complex cystic/solid hepatic lesion measuring 5.4 cm in greatest diameter, not appreciably changed as compared to the recent study. An MRI of the abdomen with and without contrast is advised for further assessment if warranted clinically. Assessment & Plan Assessment & Plan (1) Liver mass: Code(s): R16.0 - Hepatomegaly, not elsewhere classified Category: Medical (2) Kidney stone on left side: Code(s): N20.0 - Calculus of kidney Category: Medical (3) Anticoagulant long-term use: Code(s): Z79.01 - [facility] (current) use of anticoagulants Category: Medical Plan Discussed Left ESWL, Medical clearance, pt needs to stop eliquis prior to procedure Orders: Orders AMB Post Void Residual by ultrasound 11/07/24 N39.0 - Urinary tract infection, site not specified Referrals Gastroenterology Referral R16.0 - Hepatomegaly, not elsewhere classified Patient Instructions: The patient had an opportunity to ask questions regarding treatment plan. The patient expressed understanding and agreement with the above treatment plan. The patient is aware they should contact our office by phone for worsening of their current condition or the appearance of new symptoms. Compliance is encouraged with any medications and followup testing that is ordered. It is a privilege to be allowed the opportunity to participate in the urologic care of your patient. If you have any questions or concerns regarding treatment for the above conditions please do not hesitate to contact me. The office telephone contact is [phone]. This note is constructed in part using voice recognition software. While every effort has been made to ensure accuracy head of english errors may have been included. Yours sincerely, Shanel Mcdonald MD Coding Level of Care Code Est Pt Level 4 (87110) Diagnoses Liver mass R16.0 Kidney stone on left side N20.0 Anticoagulant long-term use Z79.01 CPT Codes Post Residual Void - PVR CPT Code: 74549-[id number] Void Residual by ultrasound ([id number])
--- OUTSIDE RECORDS SUMMARY | 2024-11-07 15:35 | XMS_ITS | Clinical Summary ---
Author Organization [facility] Address [address] [place] [address] Care Team Providers Care Vision Teacher Name Role Phone Unavailable Primary Care Provider Unavailabl e Surgical History Surgery Date Site/Laterality Comments CHOLECYSTECTOMY 1986 PROCEDURE: HISTORICAL CHOLECYSTECTOMY TONSILLECTOMY PROCEDURE: HISTORICAL TONSILLECTOMY Medical History Medical History Date Comments CKD (chronic kidney disease) stage 3, GFR 30-59 ml/min (CMS/HCC) 07/11/2018 DX:CKD (chronic kidney dise ase) stage 3, GFR 30-59 ml/min ([facility]) DM (diabetes mellitus), type 2 with renal complications (CMS/HCC) 09/18/2018 DX:DM (diabetes mellitus ), type 2 with renal complications ([facility]) Microalbuminuria 09/18/2018 DX:Microalbumin uria Type 2 diabetes mellitus wit h cataract ([facility]) 04/05/2018 DX:Type 2 diabetes mellitus with cataract ([facility]) Diverticulosis 09/18/2018 DX:Diverticulosi s Anxiety 08/28/2018 DX:Anxiety Cataract, bilateral 03/24/2015 DX:Cataract, bilateral Essential hypertension 02/27/2018 DX:Essent ial hypertension Insomnia 07/11/2018 DX:Insomnia Irritable bowel syndrome 02/28/2018 DX:Irri table bowel syndrome Kidney stones 11/09/2017 DX:Kidney stones Mixed hyperlipidemia 02/27/2018 DX:Mixed hy perlipidemia Paroxysmal atrial fibrillati on (CMS/HCC) 02/27/2018 DX:Paroxysmal atrial fibrill ation ([facility]); COMMENT: Izabel Family History Medical History Relation Name Comments Other: cancer Father Other: cancer Mother Relation Name Status Comments Father Mother Social History Tobacco Use Types Packs/Day Years Used Date Smoking Tobacco: Former Cigarettes Q uit: 02/28/1996 Smokeless Tobacco: Never Alcohol Use Standard Drinks/Week Comments Yes 0 (1 standard drink = 0.6 oz pur e alcohol) Sex and Gender Information Value Date Recorded Sex Assigned at Not on file Gender Identity Not on file Sexual Orientation Not on file Obstetrics History Plan of Treatment Health Maintenance Due Date Last Done Comments DTaP,Tdap,and Td Vaccines (1 - Tdap) [birth year]/23/1954 RSV Immunization Patients 60+ Years Old (1 - 1-dose 75+ series) 12/23/2011 Pneumococcal Vaccine: 65+ Years (2 of 2 - PPSV23 or PCV20) 07/20/2017 07/20/2016 Zoster Vaccines (3 of 3) 11/02/2018 09/07/2018, 01/2011 COVID-19 Vaccine ( - 2023- season) 2024 Influenza Vaccine (#1) 2024 8, 06/30/2015, 05/14/2015, Additional history exists HIB Vaccines Aged Out No longer eligi ble based on patient's age to complete this topic HPV Vaccines Aged Out No longer eligi ble based on patient's age to complete this topic Hepatitis A Vaccines Aged Out No long er eligible based on patient's age to complete this topic Hepatitis B Vaccines Aged Out No long er eligible based on patient's age to complete this topic IPV Vaccines Aged Out No longer eligi ble based on patient's age to complete this topic MMR Vaccines Aged Out No longer eligi ble based on patient's age to complete this topic Meningococcal ACWY Vaccine Aged Out N o longer eligible based on patient's age to complete this topic RSV Immunization Patients Under 20 months Aged Out No longer eligible based on patient's age to complete this topic Varicella Vaccines Aged Out No longer eligible based on patient's age to complete this topic
== END 2024-11-07 14:05 | disposition home or self-care (01) ==
PROVIDERS: PCP Internal Medicine; Visit Provider Urology
DX: R16.0 Hepatomegaly, not elsewhere classified (principal); N20.0 Calculus of kidney; Z79.01 Long term (current) use of anticoagulants
CPT/HCPCS: 99214

== ENCOUNTER → 2024-11-07 13:14 | Outpatient (BNVA) | payer MEDICARE, MEDICAID, SELFPAY | PROVIDERS: PCP Internal Medicine; Visit Provider Urology | DX: R16.0 Hepatomegaly, not elsewhere classified (principal); N20.0 Calculus of kidney; Z79.01 Long term (current) use of anticoagulants | CPT/HCPCS: 51798; 99212 ==

== ENCOUNTER 2025-01-14 10:44 | Outpatient (AMB) | payer MEDICARE, MEDICAID, SELFPAY ==
[2025-01-14 10:48] VITALS: BP 116/78; PULSE 74; O2SAT 96; BMI 18.4
--- NOTE | 2025-01-14 10:48 | A.OFFPC_ITS ---
Vital Signs 01/14/25 10:48 Height 5 ft 4 in Weight 107 lb 2.314 oz BMI 18.4 BP 116/78 Blood Pressure Location Lt brachial Position Sitting Pulse 74 Pulse Source Pulse Oximeter Pulse Oximetry (%) 96 Oxygen Delivery Method Room Air Intake Visit Reasons: 4-5 mo f/u Blankmaker Required: No Accompanied by: Self / Same As Patient Allergies aspirin Allergy (Mild, Verified 01/14/25 11:18) Unknown ibuprofen [From Advil] Allergy (Mild, Verified 01/14/25 11:18) Unknown naproxen [From Aleve] Allergy (Mild, Verified 01/14/25 11:18) Unknown nitrofurantoin [From MACROBID] Allergy (Unknown, Verified 01/14/25 11:18) RASH/FEVER penicillamine Allergy (Unknown, Verified 01/14/25 11:18) rash Penicillins [PENICILLINS] Allergy (Unknown, Verified 01/14/25 11:18) RASH Medication List - Last Reconciled 01/14/25 by Darci Mendenhall MD acetaminophen 650 mg PO Q6H PRN amlodipine 5 mg PO DAILY 90 days apixaban (Eliquis) 2.5 mg PO BID 90 days atorvastatin 20 mg PO DAILY cholecalciferol (vitamin D3) 50 mcg PO DAILY 90 days fenofibrate nanocrystallized 145 mg PO DAILY 90 days metoprolol succinate ER 50 mg PO DAILY 90 days tramadol 50 mg PO TID PRN 7 days Tobacco use date assessed: 01/14/25 Fall risk assessment: No Falls in past year Last assessed Fall Risk: 01/14/25 Dental Screening Dental Screen Date: 01/14/25 Did you have a dental visit in the last 12 months?: No Did you have a dental problem in the last 6 months where you did not have access to dental care?: No Was dental information given to patient?: No HPI 4-5 mo f/u HPI Details Patient comes in today for her follow-up visit - is accompanied by her daughter as usual Patient states that she feels okay and currently does not have any pain She is noted to have lost a lot of weight since her last visit and this has been brought to her daughter's attention today She denies any headaches or dizziness Denies any chest pains, no increased shortness of breath No nausea/vomiting, no abdominal pain No change in bowel habits noted She was admitted to the hospital back in September 2024 for increasing abdominal pain and was found to have ileus as well as a 1.8 cm calculus in the left renal pelvis She was seen by Urology subsequently and recommended left ESWL but patient did not schedule the procedure she did not want to go for any tests or procedure at this time - states that she is presently feeling well and does not think she needs anything else done for now She was also found to have a complex cystic/solid hepatic lesion on abdominal CT when she was admitted to the hospital back in September 2024 An MRI of the abdomen was recommended for further evaluation but patient declined - she again states that she is currently feeling well, is 89 years old, and does not think she needs to have anything done at this time especially if she is feeling okay [facility] Medical History History of colonic diverticulitis Atrial fibrillation Cataract Anxiety disorder Vulvar cyst Renal cysts, acquired, bilateral Uterine prolapse Vomiting Acute kidney injury Hypokalemia Vitamin D deficiency Impaired fasting glucose Overweight (BMI 25.0-29.9) Female bladder prolapse Hematuria Irritable bowel syndrome (IBS) Mixed hyperlipidemia Benign essential hypertension IBS (irritable bowel syndrome) Surgical History History of colonoscopy History of cholecystectomy History of bilateral cataract extraction Family History Father No problems noted. Mother No problems noted. Sister Cancer Social History Household Members: None Household Members Other:: from [facility] Housing: Apartment Do you presently have visiting nurse or other home services: No Alcohol intake: never Patient Tobacco Use Status: Former Tobacco user Tobacco use type: Cigarette e-Cigarette/Vaping Use: Never Used Second Hand Smoke Exposure: No service: No Current occupational status: retired Cognitive needs: No Hearing needs: No Vision needs: No Questionnaire PHQ-9 Over the last 2 weeks, how often have you been bothered by any of the following problems? 1. Little interest or pleasure in doing things: not at all 2. Feeling down, depressed, or hopeless: not at all 3. Trouble falling or staying asleep, or sleeping too much: not at all 4. Feeling tired or having little energy: not at all 5. Poor appetite or overeating: not at all 6. Feeling bad about yourself - or that you are a failure or have let yourself or your family down: not at all 7. Trouble concentrating on things, such as reading the newspaper or watching television: not at all 8. Moving or speaking so slowly that other people could have noticed. Or the opposite - being so fidgety or restless that you have been moving around a lot more than usual: not at all 9. Thoughts that you would be better off or of hurting yourself in some way: not at all Total score: 0 Depression Screening Interpretation: Negative Depression Screening Done: Yes 01944 - PHQ-9 Billing: Yes Source: Developed by Drs. Harinder Fernández, Erika Oden, Abdiel Jaramillo and colleagues, with an educational jaxson from [employer]. Thrive Questionnaire Date Thrive assessed: 01/14/25 I am a: Patient What is your living situation today?: I have a steady place to live Within the past 12 months, did the food you bought not last and you didn't have the money to get more?: Never true Within the past 12 months, did you worry whether your food would run out before you got money to buy more?: Never true Do you have trouble paying for medicines?: No Do you have trouble getting transportation to medical appointments?: No Do you have trouble paying your heating and electricity bill?: No Do you have trouble taking care of your child, family member or friend?: No Do you have trouble with day-to-day activities such as bathing, preparing meals, shopping, managing finances, etc.?: No Are you currently unemployed and looking for a job?: No Are you interested in more education?: No Please select the resources that you would like help with: None Currently or been in a relationship where the following occur: No concerns reported THRIVE Score: 0 AUDIT C Alcohol Use Questionnaire (AUDIT-C) 1. How often do you have a drink containing alcohol?: Never 3. How often do you have six or more drinks on one occasion?: Never Total Score: 0 Score Reviewed/Action Taken: Yes STEPHANIE-7 AMB Questionnaire STEPHANIE-7 Date STEPHANIE - 7 assessed: 01/14/25 Feeling nervous, anxious, or on edge: 0 = Not at all Not being able to stop or control worryin = Not at all Worrying too much about different things: 0 = Not at all Trouble relaxin = Not at all Being so restless that it is hard to sit still: 0 = Not at all Becoming easily annoyed or irritable: 0 = Not at all Feeling afraid as if something awful might happen: 0 = Not at all Total STEPHANIE-7 score (0-4 normal; 5-9 mild; 10-14 moderate; 15-21 severe): 0 Source: Developed by Drs. Harinder Fernández, Erika Oden, Abdiel Jaramillo and colleagues, with an educational jaxson from [employer]. Review of Systems Const Denies chills, Denies difficulty sleeping, Denies fatigue, Denies fever(s) and Denies headache(s) ENT Denies dysphagia, Denies dizziness, Denies otalgia, Denies headache(s), Denies neck pain, Denies odynophagia and Denies sore throat Card Denies chest pain, Denies irregular heart rhythm, Denies palpitations and Denies dyspnea Resp Denies chest congestion, Denies cough and Denies dyspnea GI Denies abdominal pain, Denies constipation, Denies dysphagia, Denies heartburn, Denies diarrhea, Denies nausea, Denies odynophagia and Denies vomiting Denies hematuria, Denies urinary frequency, Denies dysuria, Denies urinary incontinence and Denies urinary urgency Musc Denies back pain, Denies arthralgias and Denies neck pain Skin/Breast Denies rash Neuro Reports behavioral changes (per daughter), Reports confusion (on and off, per patient's daughter), Denies dizziness, Denies headache(s), Reports memory loss (per daughter) and Denies paresthesias Psych Denies anxiety, Reports behavioral changes (per daughter), Reports confusion (on and off, per patient's daughter), Denies depression and Reports memory loss (per daughter) Endo Denies fatigue and Denies palpitations Ganag/Lymph Denies easy bruising Physical exam (Primary Care) Vital Signs: Last Vital Signs Pulse 74 01/14/25 10:48 BP 116/78 01/14/25 10:48 Pulse Ox 96 01/14/25 10:48 Oxygen Delivery Method Room Air 01/14/25 10:48 BMI result Body Mass Index 18.4 Tobacco/Smoking Status: Tobacco use Status Tobacco use date assessed 01/14/25 01/14/25 10:56 Patient Tobacco Use Status Former Tobacco user 01/14/25 10:56 Tobacco use type Cigarette 01/14/25 10:56 e-Cigarette/Vaping Use Never Used 01/14/25 10:56 PHQ-9: PHQ-9 Score PHQ-9: Total score 0 01/14/25 11:24 Depression Screening Interpretation: Negative Thrive Assessment: Date of Thrive Assessment Date Thrive assessed 01/14/25 01/14/25 10:56 Currently or been in a relationship where the following occur: No concerns reported Const General: no acute distress, alert and confusion (on and off, per patient's daughter) Orientation/consciousness: confusion (on and off, per patient's daughter) HENMT Ears: TM's normal bilaterally and EAC's normal Throat: Yes posterior oropharynx normal and Yes tonsils normal (no TP c ongestion) Neck Neck: Yes supple and No lymphadenopathy Thyroid: Thyroid normal Resp Auscultation: clear to auscultation bilaterally, no rales and no wheezes Cardio Rate: regular rate Rhythm: regular rhythm Heart sounds: no murmurs GI Palpation (GI): Soft to palpation and nontender Auscultation: normal bowel sounds General: Yes no CVA tenderness Back/Spine/Pelvis Back: no CVA tenderness Thoracic/Lumbar Spine: No lumbar spinal tenderness Skin Rashes: no rashes Neuro General: confusion (on and off, per patient's daughter) Extrem General: Yes no clubbing, cyanosis or edema Coding Level of Care Code Est Pt Level 4 (00710) Complex EM visit Add On G2211 Diagnoses Benign essential hypertension I10 Paroxysmal atrial fibrillation I48.0 Mixed hyperlipidemia E78.2 Impaired fasting glucose R73.01 Irritable bowel syndrome, unspecified type K58.9 Irritable bowel syndrome type: unspecified Cognitive decline R41.89 Liver mass R16.0 Primary osteoarthritis of left hip M16.12 Primary osteoarthritis of left knee M17.12 Vitamin D deficiency E55.9 Hematuria, unspecified type R31.9 Hematuria type: unspecified type Female bladder prolapse N81.10 Anxiety F41.9 Additional Codes PHQ-9 - 23259 - PHQ-9 Billing: Yes ([id number]) Assessment & Plan Assessment & Plan (1) Benign essential hypertension: Code(s): I10 - Essential (primary) hypertension Category: Medical Plan: Reinforced low sodium diet - goal is systolic BP of at least 140 to 150 mm or less Continue Metoprolol ER 50 mg QD and Amlodipine 5 mg QD (2) Paroxysmal atrial fibrillation: Code(s): I48.0 - Paroxysmal atrial fibrillation Category: Medical Plan: Patient currently remains in sinus rhythm Continue Apixaban 2.5 mg BID for thromboembolism prophylaxis She was referred to cardiology for further evaluation and management last year but she did not keep her appointment and prefers not to reschedule her appt - states that she feels well for her age and does not want any additional doctor's appointment for now (3) Mixed hyperlipidemia: Code(s): E78.2 - Mixed hyperlipidemia Category: Medical Plan: Reinforced low cholesterol diet Continue Atorvastatin 20 mg QD and Fenofibrate 145 mg QD Patient has stated previously that she lives alone and has no means of transportation except for her children but does not feel like bothering them and she often has to pay [id number] for transportation cost and would like to keep her labs down to a minimum as much as possible Have discussed this with patient's daughter, who states that she has no problems bring patient for her labs and appointments when needed Will have patient recheck her labs and fasting lipids in 4 months for follow-up (4) Impaired fasting glucose: Code(s): R73.01 - Impaired fasting glucose Category: Medical Plan: Her FBS was elevated on her labs done back in 2019; FBS was only slightly elevated on her recent labs and HgbA1c was normal at 5.7% Reinforced low calorie diet - she has admitted that she drinks soda (Sprite) often and likes her sweets (candies) We will recheck her labs in 4 months (5) Irritable bowel syndrome (IBS): Code(s): K58.9 - Irritable bowel syndrome, unspecified Category: Medical Qualifiers: Irritable bowel syndrome type: unspecified Qualified Code(s): K58.9 - Irritable bowel syndrome without diarrhea Plan: Controlled Continue Dicyclomine 10 mg 2 capsules 4 times a day as needed (6) Cognitive decline: Code(s): R41.89 - Other symptoms and signs involving cognitive functions and awareness Category: Medical Plan: Patient was noticed to have on and off bouts of confusion and agitation and tends to keep repeating the same things over and over every 5 to 10 minutes during her office visit here back in July 2024 but she appears more alert and coherent today We previously referred her to neurology for further evaluation and she was seen by Dr. Locke on 10/15/2024 and at the time, his exam reportedly revealed intact cognition She was started on Gabapentin 100 mg Q HS, which patient does not seem to be taking anymore at this time She will be seen again sometime later this month for neurology follow up (7) Liver mass: Code(s): R16.0 - Hepatomegaly, not elsewhere classified Category: Medical Plan: This was noted on her abdominal CT done at the ER back on 10/02/2024 - (+) complex cystic/solid hepatic lesion measuring 5.4 cm in greatest diameter, not appreciably changed compared to previous study An MRI of the abdomen was recommended for further evaluation but patient remains adamant that she does not want any other procedures done at this time (8) Primary osteoarthritis of left hip: Code(s): M16.12 - Unilateral primary osteoarthritis, left hip Category: Medical Plan: X-rays of the left hip done last year revealed (+) mild left hip arthritis Patient currently is no longer complaining of any pain in and around her hip area (9) Primary osteoarthritis of left knee: Code(s): M17.12 - Unilateral primary osteoarthritis, left knee Category: Medical Plan: Her left knee x-rays done last year also showed (+) tricompartment osteoarthritis and severe patellofemoral arthritis, with chondrocalcinosis/loose bodies seen She was referred to and was seen by orthopedics a few months ago in July 2024 and ended up receiving a cortisone injection into her left knee, which patient states helped Patient states that she is currently feeling well with no pain in her hip or knee She will be follow-up with orthopedics on an as-needed basis (10) Vitamin D deficiency: Code(s): E55.9 - Vitamin D deficiency, unspecified Category: Medical Plan: Continue Vitamin D3 2000 units QD (11) Hematuria: Code(s): R31.9 - Hematuria, unspecified Category: Medical Qualifiers: Hematuria type: unspecified type Qualified Code(s): R31.9 - Hematuria, unspecified Plan: Urinalysis done back in June 2020 continued to present with (+) significant RBCs and WBCs She was sent back then for a renal US for further evaluation and patient chose not to keep her appt. Abdominal CT done back on 10/02/2024 when patient presented to the ER with abdominal pain revealed a 1.8 cm calculus in the left renal pelvis with surrounding urothelial thickening and peripelvic fat stranding. A separate 0.5 cm calculus is present within a lower pole calyx Patient was seen by Urology in October 2024 and was recommended to undergo left ESWL but patient did not schedule this she states that she feels okay at this time and does not want to go for any additional tests or procedures (12) Female bladder prolapse: Code(s): N81.10 - Cystocele, unspecified Category: Medical Plan: Abdominal CT done in September 2024 also revealed (+) marked pelvic organ prolapse involving both the anterior and middle compartments (bladder/urethra and vagina) and there is a loop of small bowel descending into the region of prolapse She has been referred to and seen by urology but patient declined any further procedures at this time (13) Anxiety: Code(s): F41.9 - Anxiety disorder, unspecified Category: Medical Plan: She was taking Lorazepam 1 mg 1/2 tablet every 6 hours as needed but it looks like this was discontinued and she is currently not on anything for anxiety - patient states that she feels okay and does not need any other Rx at this time Plan Follow up in 4 months Orders: Orders Complete Blood Count Auto Diff 4 Months D64.9 - Anemia, unspecified Lipid Panel 4 Months E78.00 - Pure hypercholesterolemia, unspecified UA CC w/rflx Micro + Cult 4 Months R30.0 - Dysuria Vitamin D 25-OH Total 4 Months E55.9 - Vitamin D deficiency, unspecified Comprehensive [place]. Panel Fast 4 Months E78.00 - Pure hypercholesterolemia, unspecified TSH reflex Free T4 4 Months E78.00 - Pure hypercholesterolemia, unspecified Vitamin B12 and Folate 4 Months E53.8 - Deficiency of other specified B group vitamins Hemoglobin A1c 4 Months R73.01 - Impaired fasting glucose
--- OUTSIDE RECORDS SUMMARY | 2025-01-14 12:53 | XMS_ITS | Clinical Summary ---
Author Organization [facility] Address [address] [place] [address] Care Team Providers Care Computer Networker Name Role Phone Unavailable Primary Care Provider Unavailabl e Surgical History Surgery Date Site/Laterality Comments CHOLECYSTECTOMY 1986 PROCEDURE: HISTORICAL CHOLECYSTECTOMY TONSILLECTOMY PROCEDURE: HISTORICAL TONSILLECTOMY Medical History Medical History Date Comments CKD (chronic kidney disease) stage 3, GFR 30-59 ml/min (CMS/HCC) 07/11/2018 DX:CKD (chronic kidney dise ase) stage 3, GFR 30-59 ml/min ([facility]) DM (diabetes mellitus), type 2 with renal complications (CMS/HCC) 09/18/2018 DX:DM (diabetes mellitus ), type 2 with renal complications ([facility]) Microalbuminuria 09/18/2018 DX:Microalbumin uria Type 2 diabetes mellitus with cataract 04/05/2018 DX:Type 2 diabetes mellitus with cataract ([facility]) Diverticulosis 09/18/2018 DX:Diverticulosi s Anxiety 08/28/2018 DX:Anxiety Cataract, bilateral 03/24/2015 DX:Cataract, bilateral Essential hypertension 02/27/2018 DX:Essent ial hypertension Insomnia 07/11/2018 DX:Insomnia Irritable bowel syndrome 02/28/2018 DX:Irri table bowel syndrome Kidney stones 11/09/2017 DX:Kidney stones Mixed hyperlipidemia 02/27/2018 DX:Mixed hy perlipidemia Paroxysmal atrial fibrillati on (CMS/HCC) 02/27/2018 DX:Paroxysmal atrial fibrill ation (HCC); COMMENT: Eliquis Family History Medical History Relation Name Comments Other: cancer Father Other: cancer Mother Relation Name Status Comments Father Mother Social History Tobacco Use Types Packs/Day Years Used Date Smoking Tobacco: Former Cigarettes Q uit: 02/28/1996 Smokeless Tobacco: Never Alcohol Use Standard Drinks/Week Comments Yes 0 (1 standard drink = 0.6 oz pur e alcohol) Comments Unknown Sex and Gender Information Value Date Recorded Sex Assigned at Not on file Legal Sex Female 9:48 PM EST Gender Identity Not on file Sexual Orientation Not on file Obstetrics History Plan of Treatment Health Maintenance Due Date Last Done Comments DTaP,Tdap,and Td Vaccines (1 - Tdap) 12/23/1954 RSV Immunization Patients 60+ Years Old (1 - 1-dose 75+ series) 12/23/2011 Pneumococcal Vaccine: 50+ Years (2 of 2 - PPSV23) 07/20/2017 07/20/2016 Zoster Vaccines (3 of 3) [...] patient's age to complete this topic Meningococcal B Vacine Aged Out No lo nger eligible based on patient's age to complete this topic RSV Immunization Patients Under 20 months Aged Out No longer eligible based on patient's age to complete this topic Varicella Vaccines Aged Out No longer eligible based on patient's age to complete this topic
== END 2025-01-14 11:26 | disposition home or self-care (01) ==
PROVIDERS: PCP Internal Medicine; Visit Provider Internal Medicine
DX: I10 Essential (primary) hypertension (principal); I48.0 Paroxysmal atrial fibrillation; E78.2 Mixed hyperlipidemia; R73.01 Impaired fasting glucose; K58.9 Irritable bowel syndrome, unspecified; R41.89 Other symptoms and signs involving cognitive functions and awareness; R16.0 Hepatomegaly, not elsewhere classified; M16.12 Unilateral primary osteoarthritis, left hip; M17.12 Unilateral primary osteoarthritis, left knee; E55.9 Vitamin D deficiency, unspecified; R31.9 Hematuria, unspecified; N81.10 Cystocele, unspecified; F41.9 Anxiety disorder, unspecified

== ENCOUNTER → 2025-01-14 10:44 | Outpatient (BNVA) | payer MEDICARE, SELFPAY | PROVIDERS: PCP Internal Medicine; Visit Provider Internal Medicine | DX: I10 Essential (primary) hypertension (principal); I48.0 Paroxysmal atrial fibrillation; E78.2 Mixed hyperlipidemia; R73.01 Impaired fasting glucose; K58.9 Irritable bowel syndrome, unspecified; R41.89 Other symptoms and signs involving cognitive functions and awareness; R16.0 Hepatomegaly, not elsewhere classified; M16.12 Unilateral primary osteoarthritis, left hip; M17.12 Unilateral primary osteoarthritis, left knee; E55.9 Vitamin D deficiency, unspecified; R31.9 Hematuria, unspecified; N81.10 Cystocele, unspecified; F41.9 Anxiety disorder, unspecified | CPT/HCPCS: 96127; 99212 ==

== ENCOUNTER 2025-05-22 14:52 | Outpatient (AMB) | payer MEDICARE, MEDICAID, SELFPAY ==
[2025-05-22 14:55] VITALS: BP 126/86; PULSE 62; O2SAT 97; BMI 18.2
--- NOTE | 2025-05-22 14:55 | A.OFFPC_ITS ---
Vital Signs 05/22/25 14:55 Height 5 ft 4 in Weight 106 lb 4 oz BMI 18.2 BP 126/86 Blood Pressure Location Lt brachial Position Sitting Pulse 62 Pulse Source Pulse Oximeter Pulse Oximetry (%) 97 Oxygen Delivery Method Room Air Intake Visit Reasons: 4 mo follow up Eyewear Consultant Required: No Accompanied by: Self / Same As Patient Allergies aspirin Allergy (Mild, Verified 05/22/25 15:25) Unknown ibuprofen (From Advil) Allergy (Mild, Verified 05/22/25 15:25) Unknown naproxen (From Aleve) Allergy (Mild, Verified 05/22/25 15:25) Unknown nitrofurantoin (From MACROBID) Allergy (Unknown, Verified 05/22/25 15:25) RASH/FEVER penicillamine Allergy (Unknown, Verified 05/22/25 15:25) rash Penicillins (PENICILLINS) Allergy (Unknown, Verified 05/22/25 15:25) RASH Medication List - Last Reconciled 05/22/25 by Darci Mendenhall MD acetaminophen 650 mg PO Q6H PRN amlodipine 5 mg PO DAILY 90 days apixaban (Eliquis) 2.5 mg PO BID 90 days atorvastatin 20 mg PO DAILY cholecalciferol (vitamin D3) 50 mcg PO DAILY 90 days fenofibrate nanocrystallized 145 mg PO DAILY 90 days metoprolol succinate ER 50 mg PO DAILY 90 days tramadol 50 mg PO TID PRN 7 days Tobacco use date assessed: 05/22/25 Fall risk assessment: No Falls in past year Last assessed Fall Risk: 05/22/25 Dental Screening Dental Screen Date: 05/22/25 Did you have a dental visit in the last 12 months?: No Did you have a dental problem in the last 6 months where you did not have access to dental care?: No Was dental information given to patient?: No HPI 4 mo follow up HPI Details Patient comes in today for her follow-up visit States that she feels okay She denies any headaches or dizziness Denies any chest pains, no shortness of breath No nausea/vomiting, no abdominal pain No change in bowel habits noted Patient needs all of her Rx refilled today She has no follow-up labs done recently Her daughter came with her today but patient would not let her daughter in the exam room Her daughter did mention outside of patient's earshot that patient's cognition has been gradually declining and she is often confused although patient continues to vehemently deny that she has any memory issues [facility] Medical History History of colonic diverticulitis Atrial fibrillation Cataract Anxiety disorder Vulvar cyst Renal cysts, acquired, bilateral Uterine prolapse Vomiting Acute kidney injury Hypokalemia Vitamin D deficiency Impaired fasting glucose Overweight (BMI 25.0-29.9) Female bladder prolapse Hematuria Irritable bowel syndrome (IBS) Mixed hyperlipidemia Benign essential hypertension IBS (irritable bowel syndrome) Surgical History History of colonoscopy History of cholecystectomy History of bilateral cataract extraction Family History Father No problems noted. Mother No problems noted. Sister Cancer Social History Household Members: None Household Members Other:: from [facility] Housing: Apartment Do you presently have visiting nurse or other home services: No Alcohol intake: never Patient Tobacco Use Status: Former Tobacco user Tobacco use type: Cigarette e-Cigarette/Vaping Use: Never Used Second Hand Smoke Exposure: No service: No Current occupational status: retired Cognitive needs: No Hearing needs: No Vision needs: No Questionnaire PHQ-9 Over the last 2 weeks, how often have you been bothered by any of the following problems? 1. Little interest or pleasure in doing things: not at all 2. Feeling down, depressed, or hopeless: not at all 3. Trouble falling or staying asleep, or sleeping too much: not at all 4. Feeling tired or having little energy: not at all 5. Poor appetite or overeating: not at all 6. Feeling bad about yourself - or that you are a failure or have let yourself or your family down: not at all 7. Trouble concentrating on things, such as reading the newspaper or watching television: not at all 8. Moving or speaking so slowly that other people could have noticed. Or the opposite - being so fidgety or restless that you have been moving around a lot more than usual: not at all 9. Thoughts that you would be better off or of hurting yourself in some way: not at all Total score: 0 Depression Screening Interpretation: Negative Depression Screening Done: Yes 42896 - PHQ-9 Billing: Yes Source: Developed by Drs. Harinder Fernández, Erika Oden, Abdiel Jaramillo and colleagues, with an educational jaxson from [employer]. Thrive Questionnaire Date Thrive assessed: 05/22/25 I am a: Patient What is your living situation today?: I have a steady place to live Within the past 12 months, did the food you bought not last and you didn't have the money to get more?: I choose not to answer this question Within the past 12 months, did you worry whether your food would run out before you got money to buy more?: I choose not to answer this question Do you have trouble paying for medicines?: I choose not to answer this question Do you have trouble getting transportation to medical appointments?: I choose not to answer this question Do you have trouble paying your heating and electricity bill?: I choose not to answer this question Do you have trouble taking care of your child, family member or friend?: I choose not to answer this question Do you have trouble with day-to-day activities such as bathing, preparing meals, shopping, managing finances, etc.?: I choose not to answer this question Are you currently unemployed and looking for a job?: I choose not to answer this question Are you interested in more education?: I choose not to answer this question Please select the resources that you would like help with: None Currently or been in a relationship where the following occur: I choose not to answer THRIVE Score: 0 AUDIT C Alcohol Use Questionnaire (AUDIT-C) 1. How often do you have a drink containing alcohol?: Never Total Score: 0 Score Reviewed/Action Taken: Yes STEPHANIE-7 AMB Questionnaire STEPHANIE-7 Date STEPHANIE - 7 assessed: 01/14/25 Feeling nervous, anxious, or on edge: 0 = Not at all Not being able to stop or control worryin = Not at all Worrying too much about different things: 0 = Not at all Trouble relaxin = Not at all Being so restless that it is hard to sit still: 0 = Not at all Becoming easily annoyed or irritable: 0 = Not at all Feeling afraid as if something awful might happen: 0 = Not at all Total STEPHANIE-7 score (0-4 normal; 5-9 mild; 10-14 moderate; 15-21 severe): 0 Source: Developed by Drs. Harinder Fernández, Erika Oden, Abdiel Jaramillo and colleagues, with an educational jaxson from [employer]. Review of Systems Const Denies chills, Denies difficulty sleeping, Denies fatigue, Denies fever(s) and Denies headache(s) ENT Denies dysphagia, Denies dizziness, Denies otalgia, Denies headache(s), Denies neck pain, Denies odynophagia and Denies sore throat Card Denies chest pain, Denies irregular heart rhythm, Denies palpitations and Denies dyspnea Resp Denies chest congestion, Denies cough and Denies dyspnea GI Denies abdominal pain, Denies constipation, Denies dysphagia, Denies heartburn, Denies diarrhea, Denies nausea, Denies odynophagia and Denies vomiting Denies hematuria, Denies difficulty voiding, Denies dysuria, Denies urinary incontinence and Denies urinary urgency Musc Denies back pain, Denies arthralgias and Denies neck pain Skin/Breast Denies rash Neuro Reports behavioral changes (per daughter), Reports confusion (on and off, per patient's daughter), Denies dizziness, Denies headache(s), Reports memory loss (per daughter) and Denies paresthesias Psych Denies anxiety, Reports behavioral changes (per daughter), Reports confusion (on and off, per patient's daughter), Denies depression and Reports memory loss (per daughter) Endo Denies fatigue and Denies palpitations Ganga/Lymph Denies easy bruising Physical exam (Primary Care) Vital Signs: Last Vital Signs Pulse 62 05/22/25 14:55 BP 126/86 05/22/25 14:55 Pulse Ox 97 05/22/25 14:55 Oxygen Delivery Method Room Air 05/22/25 14:55 BMI result Body Mass Index 18.2 Tobacco/Smoking Status: Tobacco use Status Tobacco use date assessed 05/22/25 05/22/25 14:57 Patient Tobacco Use Status Former Tobacco user 05/22/25 14:57 Tobacco use type Cigarette 05/22/25 14:57 e-Cigarette/Vaping Use Never Used 05/22/25 14:57 PHQ-9: PHQ-9 Score PHQ-9: Total score 0 05/22/25 15:27 Depression Screening Interpretation: Negative Thrive Assessment: Date of Thrive Assessment Date Thrive assessed 01/14/25 05/22/25 14:57 Currently or been in a relationship where the following occur: I choose not to answer Const General: no acute distress and confusion (on and off, per patient's daughter) Orientation/consciousness: confusion (on and off, per patient's daughter) HENMT Ears: TM's normal bilaterally and EAC's normal Throat: Yes posterior oropharynx normal and Yes tonsils normal (no TP congestion) Neck Neck: Yes supple and No lymphadenopathy Thyroid: Thyroid normal Resp Auscultation: clear to auscultation bilaterally, no rales and no wheezes Cardio Rate: regular rate Rhythm: regular rhythm Heart sounds: no murmurs GI Palpation (GI): Soft to palpation and nontender Auscultation: normal bowel sounds General: Yes no CVA tenderness Back/Spine/Pelvis Back: no CVA tenderness Thoracic/Lumbar Spine: No lumbar spinal tenderness Skin Rashes: no rashes Neuro General: confusion (on and off, per patient's daughter) Extrem General: Yes no clubbing, cyanosis or edema Coding Level of Care Code Est Pt Level 4 (04725) Diagnoses Benign essential hypertension I10 Paroxysmal atrial fibrillation I48.0 Mixed hyperlipidemia E78.2 Impaired fasting glucose R73.01 Irritable bowel syndrome, unspecified type K58.9 Irritable bowel syndrome type: unspecified Cognitive decline R41.89 Liver mass R16.0 Primary osteoarthritis of left hip M16.12 Primary osteoarthritis of left knee M17.12 Vitamin D deficiency E55.9 Hematuria, unspecified type R31.9 Hematuria type: unspecified type Female bladder prolapse N81.10 Anxiety F41.9 Additional Codes PHQ-9 - 50597 - PHQ-9 Billing: Yes ([id number]) Assessment & Plan Assessment & Plan (1) Benign essential hypertension: Code(s): I10 - Essential (primary) hypertension Category: Medical Plan: Reinforced low sodium diet - goal is systolic BP of at least 140 to 150 mm or less Continue Metoprolol ER 50 mg QD and Amlodipine 5 mg QD (2) Paroxysmal atrial fibrillation: Code(s): I48.0 - Paroxysmal atrial fibrillation Category: Medical Plan: Patient currently remains in sinus rhythm Continue Apixaban 2.5 mg BID for thromboembolism prophylaxis She was referred to cardiology for further evaluation and management last year but she did not keep her appointment and prefers not to reschedule her appt - states that she feels well for her age and does not want any additional doctor's appointment at this time (3) Mixed hyperlipidemia: Code(s): E78.2 - Mixed hyperlipidemia Category: Medical Plan: She has no follow up labs done recently Reinforced low cholesterol diet Continue Atorvastatin 20 mg QD and Fenofibrate 145 mg QD Patient has stated previously that she lives alone and has no means of trans portation except for her children but does not feel like bothering them and she often has to pay [id number] for transportation cost and would like to keep her labs down to a minimum as much as possible Have discussed this with patient's daughter, who states that she has no problems bring patient for her labs and appointments when needed Will have patient recheck her labs and fasting lipids [place] for follow-up (4) Impaired fasting glucose: Code(s): R73.01 - Impaired fasting glucose Category: Medical Plan: Her FBS was elevated on her labs done back in 2019; FBS was only slightly elevated on her most recent labs and HgbA1c was normal at 5.7% Reinforced low calorie diet - she has admitted that she drinks soda (Sprite) often and likes her sweets (candies) We will recheck her FBS and HgbA1c [place] (5) Irritable bowel syndrome (IBS): Code(s): K58.9 - Irritable bowel syndrome, unspecified Category: Medical Qualifiers: Irritable bowel syndrome type: unspecified Qualified Code(s): K58.9 - Irritable bowel syndrome without diarrhea Plan: Controlled Continue Dicyclomine 10 mg 2 capsules 4 times a day as needed (6) Cognitive decline: Code(s): R41.89 - Other symptoms and signs involving cognitive functions and awareness Category: Medical Plan: Patient was noticed to have on and off bouts of confusion and agitation and tends to keep repeating the same things over and over every 5 to 10 minutes during her office visit here back in July 2024 but she appears more alert and coherent today We previously referred her to neurology for further evaluation and she was seen by Dr. Locke on 10/15/2024 and at the time, his exam reportedly revealed intact cognition She was started on Gabapentin 100 mg Q HS, which patient has not been taking for a while now Follow up with neurology as scheduled (7) Liver mass: Code(s): R16.0 - Hepatomegaly, not elsewhere classified Category: Medical Plan: This was noted on her abdominal CT done at the ER back on 10/02/2024 - (+) complex cystic/solid hepatic lesion measuring 5.4 cm in greatest diameter, not appreciably changed compared to previous study An MRI of the abdomen was recommended for further evaluation but patient remains adamant that she does not want any other procedures done at this time (8) Primary osteoarthritis of left hip: Code(s): M16.12 - Unilateral primary osteoarthritis, left hip Category: Medical Plan: X-rays of the left hip done last year revealed (+) mild left hip arthritis Patient currently is no longer complaining of any pain in and around her hip area (9) Primary osteoarthritis of left knee: Code(s): M17.12 - Unilateral primary osteoarthritis, left knee Category: Medical Plan: Her left knee x-rays done last year also showed (+) tricompartment osteoarthritis and severe patellofemoral arthritis, with chondrocalcinosis/loose bodies seen She was referred to and was seen by orthopedics back in July 2024 and ended up receiving a cortisone injection into her left knee, which patient states helped Patient states that she is currently feeling well with no pain in her hip or knee She will follow-up with orthopedics on an as-needed basis (10) Vitamin D deficiency: Code(s): E55.9 - Vitamin D deficiency, unspecified Category: Medical Plan: Continue Vitamin D3 2000 units QD (11) Hematuria: Code(s): R31.9 - Hematuria, unspecified Category: Medical Qualifiers: Hematuria type: unspecified type Qualified Code(s): R31.9 - Hematuria, unspecified Plan: Urinalysis done back in June 2020 continued to present with (+) significant RBCs and WBCs She was sent back then for a renal US for further evaluation and patient chose not to keep her appt. Abdominal CT done back on 10/02/2024 when patient presented to the ER with abdominal pain revealed a 1.8 cm calculus in the left renal pelvis with surrounding urothelial thickening and peripelvic fat stranding. A separate 0.5 cm calculus is present within a lower pole calyx Patient was seen by Urology in October 2024 and was recommended to undergo left ESWL but patient did not schedule this she states that she feels okay at the time and does not want to go for any additional tests or procedures (12) Female bladder prolapse: Code(s): N81.10 - Cystocele, unspecified Category: Medical Plan: Abdominal CT done in September 2024 also revealed (+) marked pelvic organ prolapse involving both the anterior and middle compartments (bladder/urethra and vagina) and there is a loop of small bowel descending into the region of prolapse She has been referred to and seen by urology but patient declined any further procedures at this time (13) Anxiety: Code(s): F41.9 - Anxiety disorder, unspecified Category: Medical Plan: She was taking Lorazepam 1 mg 1/2 tablet every 6 hours as needed but it looks like this was discontinued and she is currently not on anything for anxiety - patient states that she feels okay and does not need any other Rx at this time Plan Follow up in 4 months Medications: Refilled apixaban (Eliquis) 2.5 mg PO BID 180 caps 1RF 90 days I48.0 - Paroxysmal atrial fibrillation atorvastatin 20 mg PO DAILY 90 tabs 3RF E78.2 - Mixed hyperlipidemia fenofibrate nanocrystallized 145 mg PO DAILY 90 caps 1RF 90 days E78.2 - Mixed hyperlipidemia amlodipine 5 mg PO DAILY 90 tabs 1RF 90 days cholecalciferol (vitamin D3) 50 mcg PO DAILY 90 caps 3RF 90 days E55.9 - Vitamin D deficiency, unspecified metoprolol succinate ER 50 mg PO DAILY 90 caps 1RF 90 days I10 - Essential (primary) hypertension, I48.0 - Paroxysmal atrial fibrillation
--- OUTSIDE RECORDS SUMMARY | 2025-05-22 14:55 | XMS_ITS | Clinical Summary ---
Author Organization [facility] Address [address] [place] [address] Care Team Providers Care Patient Centered Care Specialist Name Role Phone Unavailable Primary Care Provider Unavailabl e Surgical History Surgery Date Site/Laterality Comments CHOLECYSTECTOMY 1986 PROCEDURE: HISTORICAL CHOLECYSTECTOMY TONSILLECTOMY PROCEDURE: HISTORICAL TONSILLECTOMY Medical History Medical History Date Comments CKD (chronic kidney disease) stage 3, GFR 30-59 ml/min ([facility]/HCC V24, [facility] V28) 07/11/2018 DX:CKD (chronic kidney disea se) stage 3, GFR 30-59 ml/min ([facility]) DM (diabetes mellitus), type 2 with renal complications ([facility]/HCC V24, [facility] V28) 09/18/2018 DX:DM (diabetes mellitus), t ype 2 with renal complications ([facility]) Microalbuminuria 09/18/2018 DX:Microalbumin uria Type 2 diabetes mellitus wit h cataract ([facility]/HCC V24, [facility] V28) 04/05/2018 DX:Type 2 diabetes mellitus with cataract ([facility]) Diverticulosis 09/18/2018 DX:Diverticulosi s Anxiety 08/28/2018 DX:Anxiety Cataract, bilateral 03/24/2015 DX:Cataract, bilateral Essential hypertension 02/27/2018 DX:Essent ial hypertension Insomnia 07/11/2018 DX:Insomnia Irritable bowel syndrome 02/28/2018 DX:Irri table bowel syndrome Kidney stones 11/09/2017 DX:Kidney stones Mixed hyperlipidemia 02/27/2018 DX:Mixed hy perlipidemia Paroxysmal atrial fibrillati on ([facility]/HCC V24, [facility] V28) 02/27/2018 DX:Paroxysmal atrial fibril lation (HCC); COMMENT: Eliquis Family History Medical History [...] Vaccines (1 - Tdap) 12/23/1954 RSV Immunization Adult Patients (1 - 1-dose 75+ series) 12/23/2011 Pneumococcal Vaccine: 50+ Years (2 of 2 - PPSV23) 07/20/2017 07/20/2016 Zoster Vaccines (3 of 3) 11/02/2018 09/07/2018, 0501/2011 COVID-19 Vaccine ( - 2023- season) 2024 Depression Screening 10/16/2024 Influenza Vaccine (#1) 2025 8, 06/30/2015, 05/14/2015, Additional history exists HIB [...] age to complete this topic Meningococcal B Vaccine Aged Out No l onger eligible based on patient's age to complete this topic RSV Immunization Patients Under 20 months Aged Out No longer eligible based on patient's age to complete this topic Varicella Vaccines Aged Out No longer eligible based on patient's age to complete this topic
== END 2025-05-22 15:44 | disposition home or self-care (01) ==
LOC: HO.HMCH 14:53
PROVIDERS: PCP Internal Medicine; Visit Provider Internal Medicine
DX: I10 Essential (primary) hypertension (principal); I48.0 Paroxysmal atrial fibrillation; E78.2 Mixed hyperlipidemia; R73.01 Impaired fasting glucose; K58.9 Irritable bowel syndrome, unspecified; R41.89 Other symptoms and signs involving cognitive functions and awareness; R16.0 Hepatomegaly, not elsewhere classified; M16.12 Unilateral primary osteoarthritis, left hip; M17.12 Unilateral primary osteoarthritis, left knee; E55.9 Vitamin D deficiency, unspecified; R31.9 Hematuria, unspecified; N81.10 Cystocele, unspecified; F41.9 Anxiety disorder, unspecified

== ENCOUNTER → 2025-05-22 14:52 | Outpatient (BNVA) | payer MEDICARE, MEDICAID, SELFPAY | PROVIDERS: PCP Internal Medicine; Visit Provider Internal Medicine | DX: I10 Essential (primary) hypertension (principal); I48.0 Paroxysmal atrial fibrillation; E78.2 Mixed hyperlipidemia; R73.01 Impaired fasting glucose; K58.9 Irritable bowel syndrome, unspecified; R41.89 Other symptoms and signs involving cognitive functions and awareness; R16.0 Hepatomegaly, not elsewhere classified; M16.12 Unilateral primary osteoarthritis, left hip; E55.9 Vitamin D deficiency, unspecified; R31.9 Hematuria, unspecified; N81.10 Cystocele, unspecified; F41.9 Anxiety disorder, unspecified | CPT/HCPCS: 96127; 99212 ==

== ENCOUNTER 2025-05-24 08:30 | Outpatient (REF) | payer MEDICARE, SELFPAY ==
--- OUTSIDE RECORDS SUMMARY | 2025-05-24 08:33 | XMS_ITS | Patient Health Record ---
Author Organization [facility] Address [address] [place] [address] Care Team Providers Care Senior Government Program Analyst Name Role Phone Vikram Francois MA Primary Care Provider UnavailJean Castaneda Unavailable [phone] Allergies Allergen (clinical drug ingredient) Drug/Non Drug Allergy documented on EMR Reaction Allergy Type Onset Date Status Emprin (uncoded) Unknown Allergy Act ashley Nothing related (NO) Macrobid (uncoded) Unknown Allergy Active ibuprofen Advil Unknown Drug Allergy Active Aleve Unknown Drug Allergy Active sulfamethoxazole / trimethoprim Bactrim Unknown Drug Allergy Active nitrofurantoin, macrocrystals / nitrofurantoin, monohydrate Macrobid Unknown Drug Allergy Active Motrin Unknown Drug Allergy Active acetaminophen Tylenol Unknown Drug Allergy Act ashley Penicillin hives Drug Allergy Active aspirin aspirin Unknown Drug Allergy Active Reason For Referral No Information Medications Medication SIG (Take, Route, Frequency, Duration) Notes Start Date End Date Status Probiotic Active Metoprolol Succinate ER 50 MG TK 1 T PO QD Oral; Duration: 90 Active Xarelto 15 MG TK 1 T PO QD WITH THE MARCELL MEAL Oral; Duration: 30 Not-Taking Sulfamethoxazole-Trimethopri m 800-160 MG TK 1 T PO BID FOR ONE WEEK Oral; Duration: 7 Not-Taking Eliquis 5 MG TK 1 T PO BID Oral; Duration: 90 Active Lisinopril 5 MG TK 1 T PO D Oral; Duration: 90 Not-Taking Dicyclomine HCl 10 MG TK 2 C PO QID Oral ; Duration: 90 Active Fluocinonide 0.05 % Externally Not-Taking Atorvastatin Calcium 20 MG TK 1 T PO QD Oral; Duration: 90 Active Cleocin 300 MG 1 capsule Orally every 8 hrs; Duration: 10 days 06/04/2018 Not-Taking Claritin 10 MG 1 tablet Orally Once a day Not-Taking Meclizine HCl 25 MG 1 tablet as needed Orally Once a day Active LORazepam 0.5 MG (Schedule IV Drug) TK 1 T PO BID Oral; Duration: 90 Active Phenazopyridine HCl 200 MG TK 1 T PO TID AFTER MEALS PRN Oral; Duration: 5 Not-Taking Bactrim DS 800-160 MG 1 tablet Orally every 12 hrs; Duration: 10 day(s) Active hydroCHLOROthiazide 12.5 MG TK 1 T PO D Oral; Duration: 90 Active Ciprofloxacin HCl 250 MG TK 1 T PO BID O ral; Duration: 7 Not-Taking Fenofibrate 145 MG TK 1 T PO QD Oral; Duration: 90 Active Melatonin 5 MG TK 1 T PO QHS Oral; Duration: 90 PRN Not-Taking Clindamycin HCl 300 MG 2 capsules Orally every 8 hrs; Duration: 10 day(s) 08/28/2018 Active Social History Tobacco Use: Social History Observation Description Date Details (start date - stop date) Former Smoker NA - NA Tobacco Use/Smoking Question Answer Notes Are you a: former smoker When did you stop smoking? 2 years ago Additional Findings: Tobacco Non-User Cu rrent non-smoker,Ex-heavy cigarette smoker (20-30/day) Alcohol Screen Question Answer Notes Did you have a drink containing alcohol in the p ast year? No Points 0 Interpretation Negative Tobacco use other than smoking: Question Answer Notes Are you an other tobacco user? No Plan Of Treatment Pending Test Test Name Order Date *Uric Acid, Serum 05/30/2018 *Uric Acid, Serum 08/27/2018 *CBC With Differential/Platelet 08/27/20 18 Insurance Providers Payer Name Payer Address Payer Phone Subscriber Number Group Number Insured Name Patient Relationship to Insured Coverage Start Date Coverage End Date [address] [id number] [address] [place] [address] [id number] Cheryl Roblero Self - patient is the insured Medical (General) History Medical History History ICD Code Chicken pox Gall bladder problems Heart disease Hypertension Measles Anxiety CAD Anemia Ankle Pain A fib Cataracts Dermatitis dizziness Hyperlipidemia Irritable bowel syndrome Insomnia Kidney stones Back pain Sinus conditions Urinary tract infections Hematuria Surgical History Surgery Date(Month/Year) gall bladder tonsillectomy
--- OUTSIDE RECORDS SUMMARY | 2025-05-24 08:33 | XMS_ITS | Clinical Summary ---
Author Organization [facility] Address [address] [place] [address] Care Team Providers Care Work Order Clerk Name Role Phone Unavailable Primary Care Provider Unavailabl e Surgical History Surgery Date Site/Laterality Comments CHOLECYSTECTOMY 1986 PROCEDURE: HISTORICAL CHOLECYSTECTOMY TONSILLECTOMY PROCEDURE: HISTORICAL TONSILLECTOMY Medical History Medical History Date Comments CKD (chronic kidney disease) stage 3, GFR 30-59 ml/min ([facility]/HCC V24, [facility] V28) 07/11/2018 DX:CKD (chronic kidney disea se) stage 3, GFR 30-59 ml/min ([facility]) DM (diabetes mellitus), type 2 with renal complications ([facility]/HCC V24, [facility] V28) 09/18/2018 DX:DM (diabetes mellitus), t ype 2 with renal complications ([facility]) Microalbuminuria 09/18/2018 DX:Microalbumin uria Type 2 diabetes mellitus wit h cataract ([facility]/HCC V24, [facility] V28) 04/05/2018 DX:Type 2 diabetes mellitus with cataract ([facility]) Diverticulosis 09/18/2018 DX:Diverticulosi s Anxiety 08/28/2018 DX:Anxiety Cataract, bilateral 03/24/2015 DX:Cataract, bilateral Essential hypertension 02/27/2018 DX:Essent ial hypertension Insomnia 07/11/2018 DX:Insomnia Irritable bowel syndrome 02/28/2018 DX:Irri table bowel syndrome Kidney stones 11/09/2017 DX:Kidney stones Mixed hyperlipidemia 02/27/2018 DX:Mixed hy perlipidemia Paroxysmal atrial fibrillati on ([facility]/HCC V24, [facility] V28) 02/27/2018 DX:Paroxysmal atrial fibril lation [...]
[2025-05-24 08:47] LABS: MANUAL DIFF FLAG NO
[2025-05-24 09:11] LABS: Hematocrit 33.4 % (37.0-47.0); Hemoglobin 11.2 g/dl (12.0-16.0); Imm Gran Abs Auto 0.03 X10*3/uL (0.00-0.03); Imm Gran Pct Auto 0.5 % (0.0-0.4); Lymphocytes Absolute Auto 1.2 X10*3/uL (1.2-4.9); Mean Corpuscular HGB Conc 33.5 g/dl (31.0-35.0); Mean Corpuscular Hemoglobin 30.7 pg (27.0-33.0); Mean Corpuscular Volume 91.5 fL (80.0-98.0); NRBC Abs Auto 0.000 X10*3/uL (0.0-0.012); NRBC Pct Auto 0.0 /100WBC (0.0-0.2); Platelet Count 308 X10*3/uL (160-400); Red Blood Count 3.65 X10*6/uL (4.20-5.50); White Blood Count 6.2 X10*3/uL (4.8-10.8)
[2025-05-24 09:30] LABS: Alanine Aminotransferase 17 U/L (0-31); Albumin Level 4.1 g/dL (3.5-5.0); Alkaline Phosphatase 90 U/L (39-117); Anion Gap 13 (12-20); Aspartate Amino Transferase 31 U/L (5-31); Blood Urea Nitrogen 25 mg/dL (9-16); Calcium 10.0 mg/dL (8.4-10.2); Carbon Dioxide 25 mmol/L (22-29); Chloride 107 mmol/L (96-108); Cholesterol 143 mg/dL (<200); Estimated Glomerular Filt Rate 56; HDL Cholesterol 48 mg/dL (>40); Potassium 3.7 mmol/L (3.3-5.1); Sodium 141 mmol/L (135-145); Total Protein 6.8 g/dL (6.5-8.0); Triglycerides 74 mg/dL (<150)
[2025-05-24 09:59] LABS: Folate 7.8 ng/mL (> or = 4.0); Vitamin B12 253 pg/mL (200-900)
[2025-05-24 10:46] LABS: Hemoglobin A1C 103.4249 umol/L; Total Hemoglobin (HGBA1C) 3025.1847 umol/L
== END 2025-05-24 08:31 | disposition home or self-care (01) ==
LOC: HO.LAB 08:30
PROVIDERS: PCP Internal Medicine; Visit Provider Internal Medicine
DX: E53.8 Deficiency of other specified B group vitamins (principal); D64.9 Anemia, unspecified; E78.00 Pure hypercholesterolemia, unspecified; E55.9 Vitamin D deficiency, unspecified; R73.01 Impaired fasting glucose
CPT/HCPCS: 36415; 80053; 80061; 82306; 82607; 82746; 83036; 84443; 85025

== ENCOUNTER 2025-09-23 12:43 | Outpatient (AMB) | payer MEDICARE, OTHER, MEDICAID, SELFPAY ==
--- NOTE | 2025-09-23 12:53 | A.OFFVIS_ITS ---
Intake Vital Signs 09/23/25 12:55 09/23/25 13:48 Height 4 ft 10.27 in Weight 107 lb 6 oz BMI 22.2 BP 152/82 H 150/86 H Blood Pressure Location Lt brachial Lt brachial Position Sitting Sitting Pulse 70 Pulse Source Pulse Oximeter Temp 97.1 F Temp Source Temporal Artery Scan Pulse Oximetry (%) 97 Oxygen Delivery Method Room Air Intake Visit Reasons: AWV Intake Note: Patient is here for an Annual Wellness Visit. Charge Poster Required: No Assembler Small Products: Assembler Small Products offered & declined Accompanied by: Self / Same As Patient Allergies aspirin Allergy (Mild, Verified 09/23/25 13:36) Unknown ibuprofen (From Advil) Allergy (Mild, Verified 09/23/25 13:36) Unknown naproxen (From Aleve) Allergy (Mild, Verified 09/23/25 13:36) Unknown nitrofurantoin (From MACROBID) Allergy (Unknown, Verified 09/23/25 13:36) RASH/FEVER penicillamine Allergy (Unknown, Verified 09/23/25 13:36) rash Penicillins (PENICILLINS) Allergy (Unknown, Verified 09/23/25 13:36) RASH Medication List - Last Reconciled 09/23/25 by Darci Mendenhall MD acetaminophen 650 mg PO Q6H PRN amlodipine 5 mg PO DAILY 90 days apixaban (Eliquis) 2.5 mg PO BID 90 days atorvastatin 20 mg PO DAILY cholecalciferol (vitamin D3) 50 mcg PO DAILY 90 days fenofibrate nanocrystallized 145 mg PO DAILY 90 days metoprolol succinate ER 50 mg PO DAILY 90 days tramadol 50 mg PO BID PRN 7 days HPI AWV HPI Details Patient comes in today for her Medicare Annual Wellness Exam AND follow up visit She reports experiencing pain that supposedly started in her upper extremity and has now moved to her knees (?), which she describes as soreness - thinks that she may possibly due to arthritis or bursitis. States that the pain does not prevent her from walking She has also recently noticed some bruising on her legs She is on Eliquis twice daily for PAF, and she also brought in a small bottle of Motrin, which she states she has been taking as needed lately to help with her joint pains Have advised patient that she is already taking a blood thinner (Eliquis) and should not be taking any other NSAIDs and that his could explain the bruising that she has been seeing recently Have advised her to take Tylenol for pain instead and avoid ALL NSAIDs, including Motrin or Ibuprofen States that she occasionally takes some OTC stool softeners as well for constipation as needed Her weight has been steady and patient states that she rarely consumes alcohol Patient also has some degree of cognitive decline and is currently residing at [facility] States that her daughter helps her with her grocery shopping, transportation and bills and she is independent with most other ADLs She denies any headaches or dizziness Denies any chest pains, no increased SOB No nausea/vomiting, no abdominal pain No change in bowel habits noted She had her follow up labs done back in May 2025, a couple of days after she was last seen She reportedly had her colonoscopy last done at around 76 y/o and was advised by her doctor in [place] at the time that she no longer needs any follow up colonoscopies based on her age ------- [place] of care was reviewed and updated today Patient does not have a healthcare proxy in place and on file and she is unaware/unsure if she has one at home; she was provided with an HCP and MOLST form and instructed to give these to her daughter so she can help patient comp lete these as soon as possible IPPE/AWV: c/o of Annual Wellness Visit, initial visit. Medical / Social History Reviewed Past Medical History Yes . [place] of Care / Care Team list updated Yes . Surgical/Hospitalization History Yes . Current Medications (including OTC and supplements) Yes . Family History Yes . Tobacco Control form Yes . AUDIT-C (Alcohol use) form Yes . Illicit drug use in Social History Yes . Current diagnosis of depression? No Appropriate PHQ2/PHQ9 completed Yes . Data entered by Life Skills Trainer and reviewed by provider Home Safety Throw rugs? No Grab bars? No Raised toilet seats? No Working smoke detectors? Yes Working carbon monoxide detectors? Yes Data entered by Life Skills Trainer and reviewed by provider Activities of Daily Living (ADLs) Difficulty bathing or showering? No Difficulty dressing? No Difficulty using the toilet? No Difficulty getting in and out of bed? No Difficulty walking? No Receives help from another person with any of the above tasks? No Instrumental Activities of Daily Living (IADLs) Uses the telephone without help Gets to places out of walking distance with help Goes shopping for groceries with help Prepares own meals without help Does own minor home maintenance with help Does own laundry with help Does own housework with help Manages own money with help Currently takes medications? Yes Takes medication without help End-of-Life Planning Discussed advance directive Yes Advance directive not on file Discussed wishes expressed in advance directive agreed to following patient's wishes Fall Risk: Fall History Have you had any falls with injury in the past year? No . Have you had two or more falls in the past year? No . Fall Risk Assessment: No falls in the past year . HRA filled out by the patient, reviewed by Provider and scanned. [facility] Medical History History of colonic diverticulitis Atrial fibrillation Cataract Anxiety disorder Vulvar cyst Renal cysts, acquired, bilateral Uterine prolapse Vomiting Acute kidney injury Hypokalemia Vitamin D deficiency Impaired fasting glucose Overweight (BMI 25.0-29.9) Female bladder prolapse Hematuria Irritable bowel syndrome (IBS) Mixed hyperlipidemia Benign essential hypertension IBS (irritable bowel syndrome) Surgical History History of colonoscopy History of cholecystectomy History of bilateral cataract extraction Family History Father No problems noted. Mother No problems noted. Sister Cancer Social History Household Members: None Household Members Other:: from [facility] Housing: Apartment Do you presently have visiting nurse or other home services: No Alcohol intake: never Patient Tobacco Use Status: Former Tobacco user Tobacco use type: Cigarette e-Cigarette/Vaping Use: Never Used Second Hand Smoke Exposure: No service: No Current occupational status: retired Cognitive needs: No Hearing needs: No Vision needs: No Questionnaire Medicare Wellness Checkup What is your age?: 80 or older What gender do you identify with?: female During the past 4 weeks, how much have you been bothered by emotional problems such as feeling anxious, depressed, irritable, sad or downhearted, and blue?: not at all During the past 4 weeks, has your physical & emotional health limited your social activities with family, friends, neighbors, or groups?: not at all During the past 4 weeks, how much bodily pain have you generally had?: mild pain During the past 4 weeks, was someone available to help you if you needed & wanted help?: yes, some During the past 4 weeks, what was the hardest physical activity you could do for at least 2 minutes?: light Can you get to places out of walking distance without help? (For eg., can you travel alone on buses, taxis or drive your car?): No Can you go shopping for groceries or clothes without someone's help?: No Can you prepare your own meals?: Yes Can you do your housework without help?: No Because of any health problems, do you need the help of another person with your personal care needs such as eating, bathing, dressing or getting around the house?: No Can you handle your own money without help?: Yes During the past 4 weeks, how would you rate your health in general?: good During the past 4 weeks how have things been going for you?: pretty well Are you having difficulties driving your car?: not applicable, I don't use a car Do you always fasten your seat belt when you are in a car?: yes, usually During past 4 weeks, have you been bothered by the following: never: Falling or dizzy when standing up, Sexual problems?, Trouble eating well?, Teeth or denture problems?, Problems using the telephone? and Tiredness or fatigue? Have you fallen 2 or more times in the past year?: No Are you afraid of falling?: Yes Are you a smoker?: no During the past 4 weeks, how many drinks of wine, beer, or other alcoholic beverages did you have?: no alcohol at all Do you exercise for about 20 minutes 3 or more times a week?: yes, some of the time Have you been given information to help with the following?: yes: Keeping track of your medications? and no: Hazards in your house that might hurt you? How often do you have trouble taking medicines the way you have been told to take them?: I always take medicine as prescribed How confident are you that you can control & manage most of your health problems?: very confident What is your race?: White Mini Mental State Exam (MMSE) Orientation What is the (year) (season) (date) (day) (month)?: year, season and month Where are we (state) (county) (town or city) (hospital) (floor)?: state, town or city, hospital/clinic and floor Language Show patient a wristwatch & ask what it is. Repeat for pencil.: watch and pencil Print the sentence 'CLOSE YOUR EYES' on a piece. If patient actually closes eyes then score.: followed written direction Score Score: 10 Activity of Daily Living Bathing - sponge bath, tub bath or shower: receives no assistance (gets in/out by self, if usual bathing means Dressing - getting clothes from closets & drawers, including inner/outer garments & fasteners.: gets clothes & gets completely dressed without help Toileting - going to the 'toilet room' for urine/bowel elimination & cleaning self/arranging clothes: goes to toilet room, cleans self, arranges clothes without help Transfer: moves in & out of bed and chair without help (may use support object) Continence: controls urination/bowel movements completely by self Feeding: feeds self without help Total Score: 0 Information obtained from: patient Using telephone: independent Traveling: dependent Shopping: dependent Preparing meals: independent Housework: dependent Taking medicine: independent Managing money: dependent PHQ-9 Over the last 2 weeks, how often have you been bothered by any of the following problems? 1. Little interest or pleasure in doing things: not at all 2. Feeling down, depressed, or hopeless: not at all 3. Trouble falling or staying asleep, or sleeping too much: not at all 4. Feeling tired or having little energy: not at all 5. Poor appetite or overeating: not at all 6. Feeling bad about yourself - or that you are a failure or have let yourself or your family down: not at all 7. Trouble concentrating on things, such as reading the newspaper or watching television: not at all 8. Moving or speaking so slowly that other people could have noticed. Or the opposite - being so fidgety or restless that you have been moving around a lot more than usual: not at all 9. Thoughts that you would be better off or of hurting yourself in some way: not at all Total score: 0 Depression Screening Interpretation: Negative Depression Screening Done: Yes 06394 - PHQ-9 Billing: Yes Source: Developed by Drs. Harinder Fernández, Erika Oden, Abdiel Jaramillo and colleagues, with an educational jaxson from [employer]. Thrive Questionnaire Date Thrive assessed: 09/23/25 I am a: Patient What is your living situation today?: I have a steady place to live Within the past 12 months, did the food you bought not last and you didn't have the money to get more?: I choose not to answer this question Within the past 12 months, did you worry whether your food would run out before you got money to buy more?: I choose not to answer this question Do you have trouble paying for medicines?: I choose not to answer this question Do you have trouble getting transportation to medical appointments?: I choose not to answer this question Do you have trouble paying your heating and electricity bill?: I choose not to answer this question Do you have trouble taking care of your child, family member or friend?: I choose not to answer this question Do you have trouble with day-to-day activities such as bathing, preparing meals, shopping, managing finances, etc.?: I choose not to answer this question Are you currently unemployed and looking for a job?: I choose not to answer this question Are you interested in more education?: I choose not to answer this question Please select the resources that you would like help with: Childcare and None Currently or been in a relationship where the following occur: I choose not to answer THRIVE Score: 0 STEPHANIE-7 AMB Questionnaire STEPHANIE-7 Date STEPHANIE - 7 assessed: 09/23/25 Feeling nervous, anxious, or on edge: 0 = Not at all Not being able to stop or control worryin = Not at all Worrying too much about different things: 0 = Not at all Trouble relaxin = Not at all Being so restless that it is hard to sit still: 0 = Not at all Becoming easily annoyed or irritable: 0 = Not at all Feeling afraid as if something awful might happen: 0 = Not at all Total STEPHANIE-7 score (0-4 normal; 5-9 mild; 10-14 moderate; 15-21 severe): 0 Source: Developed by Drs. Harinder Fernández, Erika Oden, Abdiel Jaramillo and colleagues, with an educational jaxson from [employer]. Review of Systems Const Denies chills, Denies difficulty sleeping, Denies fatigue, Denies fever(s) and Denies headache(s) ENT Denies dysphagia, Denies dizziness, Denies otalgia, Denies headache(s), Denies neck pain, Denies odynophagia and Denies sore throat Card Denies chest pain, Denies irregular heart rhythm, Denies palpitations and Denies dyspnea Resp Denies chest congestion, Denies cough and Denies dyspnea GI Denies abdominal pain, Denies constipation, Denies dysphagia, Denies heartburn, Denies diarrhea, Denies nausea, Denies odynophagia and Denies vomiting Denies metrorrhagia, Denies hematuria, Denies difficulty voiding, Denies dysuria, Denies urinary incontinence and Denies urinary urgency Musc Denies back pain, Reports arthralgias (in her knees lately), Denies joint swelling and Denies neck pain Skin/Breast Denies rash Neuro Details: Patient does have some degree of cognitive impairment Reports behavioral changes (per daughter), Reports confusion (on and off, per patient's daughter), Denies dizziness, Denies headache(s), Reports memory loss (per daughter) and Denies paresthesias Psych Denies anxiety, Reports behavioral changes (per daughter), Reports confusion (on and off, per patient's daughter), Denies depression and Reports memory loss (per daughter) Endo Denies fatigue and Denies palpitations Ganga/Lymph Denies easy bruising Physical Exam Exam Exam: IPPE/AWV: Balance Romberg Yes . Tandem walk Yes . Walk and Turn Yes . Rise from sit to stand No . Vision Corrective lens No Vision screen pass Hearing Whisper test pass . Urinary incont. no. EKG Not clinically necessary. Vital Signs: Last Vital Signs Temp 97.1 F 09/23/25 12:55 Pulse 70 09/23/25 12:55 BP 150/86 H 09/23/25 13:48 Pulse Ox 97 09/23/25 12:55 Oxygen Delivery Method Room Air 09/23/25 12:55 BMI result Body Mass Index 22.2 Const General: no acute distress and confusion (on and off, per patient's daughter) Orientation/consciousness: confusion (on and off, per patient's daughter) HEENT Ears: TM's normal bilaterally and EAC's normal Throat: Yes posterior oropharynx normal and Yes tonsils normal (no TP congestion) Neck Neck: Yes supple and No lymphadenopathy Thyroid: Thyroid normal Resp Auscultation: clear to auscultation bilaterally, no rales and no wheezes Cardio Rate: regular rate Rhythm: regular rhythm Heart sounds: no murmurs GI Palpation (GI): Soft to palpation and nontender Auscultation: normal bowel sounds General: Yes no CVA tenderness Back/Spine/Pelvis Back: no CVA tenderness Thoracic/Lumbar Spine: lumbar spinal tenderness (mild) Skin Rashes: no rashes Neuro General: confusion (on and off, per patient's daughter) Extrem General: Yes no clubbing, cyanosis or edema Results Reviewed Results Reviewed: Laboratory Tests 05/24/25 08:46 WBC 6.2 Hgb 11.2 L Hct 33.4 L Plt Count 308 Sodium 141 Potassium 3.7 Creatinine 0.94 Estimated GFR 56 Fasting Glucose 88 Hemoglobin A1c % 5.3 Calcium 10.0 D AST 31 ALT 17 Triglycerides 74 Cholesterol 143 LDL Cholesterol, Calc 81 HDL Cholesterol 48 Vitamin B12 253 25-OH Vitamin D Total 44.1 TSH 1.65 Assessment & Plan Assessment & Plan (1) Medicare annual wellness visit, initial: Code(s): Z00.00 - Encounter for general adult medical examination without abnormal findings Plan: CONCEPCION updated HRA form discussed and completed with patient today; form will be scanned into patient's chart Results of her labs done back in May 2025 reviewed and discussed with patient (2) Benign essential hypertension: Code(s): I10 - Essential (primary) hypertension Plan: Reinforced low sodium diet - goal is systolic BP of at least 140 to 150 mm or less Continue Metoprolol ER 50 mg QD and Amlodipine 5 mg QD (3) Paroxysmal atrial fibrillation: Code(s): I48.0 - Paroxysmal atrial fibrillation Plan: Patient currently remains in sinus rhythm Continue Apixaban 2.5 mg BID for thromboembolism prophylaxis and Metoprolol ER 50 mg QD She was referred to cardiology for further evaluation and management last year but she did not keep her appointment and prefers not to reschedule her appt - states that she feels well for her age and does not want any additional doctor's appointment at this time She has also been advised NOT to take ANY NSAIDs for pain as she is on Eliquis and to take OTC Tylenol instead as needed (4) Mixed hyperlipidemia: Code(s): E78.2 - Mixed hyperlipidemia Plan: She is advised that her cholesterol levels were well-controlled on her labs done back in May 2025 Reinforced low cholesterol diet Continue Atorvastatin 20 mg QD and Fenofibrate 145 mg QD Patient has stated previously that she lives alone and has no means of transportation except for her children but does not feel like bothering them and she often has to pay [id number] for transportation cost and would like to keep her labs down to a minimum as much as possible Have discussed this with patient's daughter, who states that she has no problems bring patient for her labs and appointments when needed Will have patient recheck her labs and fasting lipids in 4 months for follow-up (5) Impaired fasting glucose: Code(s): R73.01 - Impaired fasting glucose Plan: Her FBS was elevated on her labs done back in 2019 but was normal on her most recent labs at 88 mg/dl Her HgbA1c remained normal at 5.3% (was previously at 5.7%) Reinforced low calorie diet - she has admitted that she drinks soda (Sprite) often and likes her sweets (candies) We will recheck her FBS and HgbA1c in 4 months for follow up (6) Irritable bowel syndrome (IBS): Code(s): K58.9 - Irritable bowel syndrome, unspecified Qualifiers: Irritable bowel syndrome type: unspecified Qualified Code(s): K58.9 - Irritable bowel syndrome without diarrhea Plan: Controlled Continue Dicyclomine 10 mg 2 capsules 4 times a day as needed (7) Cognitive decline: Code(s): R41.89 - Other symptoms and signs involving cognitive functions and awareness Plan: Patient has been noticed to have on and off bouts of confusion and agitation and tends to keep repeating the same things over and over every 5 to 10 minutes during her office visits here over the past year but she appears more alert and coherent today We previously referred her to neurology for further evaluation and she was seen by Dr. Locke on 10/15/2024 and at the time, his exam reportedly revealed intact cognition She was started on Gabapentin 100 mg Q HS, which patient has not been taking for a while now - she apparently self-discontinued the Rx Follow up with neurology as scheduled (8) Liver mass: Code(s): R16.0 - Hepatomegaly, not elsewhere classified Plan: This was noted on her abdominal CT done at the ER back on 10/02/2024 - (+) complex cystic/solid hepatic lesion measuring 5.4 cm in greatest diameter, not appreciably changed compared to previous study An MRI of the abdomen was recommended for further evaluation but patient remains adamant that she does not want any other procedures done at this time and has not changed her mind on this stance (9) Primary osteoarthritis of left hip: Code(s): M16.12 - Unilateral primary osteoarthritis, left hip Plan: X-rays of the left hip done last year revealed (+) mild left hip arthritis Patient currently is no longer complaining of any pain in and around her hip area (10) Primary osteoarthritis of left knee: Code(s): M17.12 - Unilateral primary osteoarthritis, left knee Plan: Her left knee x-rays done last year also showed (+) tricompartment osteoarthritis and severe patellofemoral arthritis, with chondrocalcinosis/loose bodies seen She was referred to and was seen by orthopedics back in July 2024 and ended up receiving a cortisone injection into her left knee, which patient states helped Patient states that she is currently feeling well but the pain in her knees appear to have recurred recently and she is advised to reach out to orthopedics again if her knee pain progresses Follow-up with orthopedics as-needed (11) Vitamin D deficiency: Code(s): E55.9 - Vitamin D deficiency, unspecified Plan: Continue Vitamin D3 2000 units QD (12) Hematuria: Code(s): R31.9 - Hematuria, unspecified Qualifiers: Hematuria type: unspecified type Qualified Code(s): R31.9 - Hematuria, unspecified Plan: Urinalysis done back in June 2020 continued to present with (+) significant RBCs and WBCs She was sent back then for a renal US for further evaluation and patient chose not to keep her appt. Abdominal CT done back on 10/02/2024 when patient presented to the ER with abdominal pain revealed a 1.8 cm calculus in the left renal pelvis with surrounding urothelial thickening and peripelvic fat stranding. A separate 0.5 cm calculus is present within a lower pole calyx Patient was seen by Urology in October 2024 and was recommended to undergo left ESWL but patient did not schedule this she states that she feels okay at the time and does not want to go for any additional tests or procedures Her recent labs did not include any urine tests results (13) Female bladder prolapse: Code(s): N81.10 - Cystocele, unspecified Plan: Abdominal CT done in September 2024 also revealed (+) marked pelvic organ prolapse involving both the anterior and middle compartments (bladder/urethra and vagina) and there is a loop of small bowel descending into the region of prolapse She has been referred to and seen by urology but patient declined any further procedures at this time (14) Anxiety: Code(s): F41.9 - Anxiety disorder, unspecified Plan: She was taking Lorazepam 1 mg 1/2 tablet every 6 hours as needed but it looks like this was discontinued and she is currently not on anything for anxiety - patient states that she feels okay and does not need any other Rx at this time Plan Follow up in 4 months Orders: Orders Complete Blood Count Auto Diff 4 Months D64.9 - Anemia, unspecified UA CC w/rflx Micro + Cult 4 Months R30.0 - Dysuria Lipid Panel 4 Months E78.00 - Pure hypercholesterolemia, unspecified Comprehensive [place]. Panel Fast 4 Months E78.00 - Pure hypercholesterolemia, unspecified TSH reflex Free T4 4 Months E78.00 - Pure hypercholesterolemia, unspecified Vitamin D 25-OH Total 4 Months E55.9 - Vitamin D deficiency, unspecified Quality Reporting (2019) Depression/Bipolar (159/160/161/177) PHQ-9: Total score: 0 Coding Level of Care Code Medicare First (G0438) Est Pt Level 4 (76026) Diagnoses Medicare annual wellness visit, initial Z00.00 Benign essential hypertension I10 Paroxysmal atrial fibrillation I48.0 Mixed hyperlipidemia E78.2 Impaired fasting glucose R73.01 Irritable bowel syndrome, unspecified type K58.9 Irritable bowel syndrome type: unspecified Cognitive decline R41.89 Liver mass R16.0 Primary osteoarthritis of left hip M16.12 Primary osteoarthritis of left knee M17.12 Vitamin D deficiency E55.9 Hematuria, unspecified type R31.9 Hematuria type: unspecified type Female bladder prolapse N81.10 Anxiety F41.9 CPT Codes Advance Care Planning - Time spent: 1-15 minutes, not on file ([id number]) Additional Codes PHQ-9 - 30092 - PHQ-9 Billing: Yes ([id number]) Advance Care Planning Advance Care Planning discussion: Exists, not on file (patient thinks her daughter has HCP form but cannot be sure - HCP and MOLST forms provided to patient to bring home to daughter to help her complete these [place]) Date of discussion: 09/24/25 Who was present: Patient; PCP Time spent: 1-15 minutes, not on file
[2025-09-23 12:55] VITALS: BP 152/82; PULSE 70; TEMP 36.2; O2SAT 97; BMI 22.2
[2025-09-23 13:48] VITALS: BP 150/86
== END 2025-09-23 14:40 | disposition home or self-care (01) ==
LOC: HO.HMCH 12:44
PROVIDERS: PCP Internal Medicine; Visit Provider Internal Medicine
DX: Z00.00 Encounter for general adult medical examination without abnormal findings (principal); I48.0 Paroxysmal atrial fibrillation; I10 Essential (primary) hypertension; E78.2 Mixed hyperlipidemia; R73.01 Impaired fasting glucose; K58.9 Irritable bowel syndrome, unspecified; R41.89 Other symptoms and signs involving cognitive functions and awareness; R16.0 Hepatomegaly, not elsewhere classified; M16.12 Unilateral primary osteoarthritis, left hip; M17.12 Unilateral primary osteoarthritis, left knee; E55.9 Vitamin D deficiency, unspecified; R31.9 Hematuria, unspecified; N81.10 Cystocele, unspecified; F41.9 Anxiety disorder, unspecified

== ENCOUNTER → 2025-09-23 12:43 | Outpatient (BNVA) | payer MEDICARE, MEDICAID, SELFPAY | PROVIDERS: PCP Internal Medicine; Visit Provider Internal Medicine | DX: M17.12 Unilateral primary osteoarthritis, left knee (principal); M16.12 Unilateral primary osteoarthritis, left hip; R16.0 Hepatomegaly, not elsewhere classified; K58.9 Irritable bowel syndrome, unspecified; R41.89 Other symptoms and signs involving cognitive functions and awareness; R73.01 Impaired fasting glucose; E78.2 Mixed hyperlipidemia; I48.0 Paroxysmal atrial fibrillation; I10 Essential (primary) hypertension; Z13.39 Encounter for screening examination for other mental health and behavioral disorders; R31.9 Hematuria, unspecified; R30.0 Dysuria | CPT/HCPCS: 96127; 99212 ==